=== PATIENT | female | born 1960 | race Caucasian/White ===

== ENCOUNTER 2017-03-22 05:29 | Observation (INO) | payer MEDICARE ==
[~2017-03-22 05:29] MED LIST: CEFAZOLIN SODIUM 2 GM in DEXTROSE 5%-WATER 100 ML IV PRN; LACTATED RINGERS 1000 ML IV PRN; LIDOCAINE 0.5% INJ-PF (5 MG/ML) 50 ML SDV SUBCUT PRN
[2017-03-22] MEDS ORDERED: ALBUTEROL SULFATE 0.083% NEB 2.5 MG/3 ML AMPUL NEB ONE (06:25)
[2017-03-22] MEDS ORDERED: THROMBIN (BOVINE) 5000 UNIT EPITAXIS KIT ONE (06:49)
[2017-03-22] MEDS ORDERED: BACITRACIN INJ 50,000 UNIT VIAL ONE (06:49)
[2017-03-22] MEDS ORDERED: FENTANYL CITRATE INJ/PF 250 MCG/5 ML AMPULE ONE (06:52)
[2017-03-22] MEDS ORDERED: PROPOFOL INJ 200 MG/20 ML VIAL IV ONE ×2 (06:53→07:09)
[2017-03-22] MEDS ORDERED: MIDAZOLAM 2 MG/2 ML INJ ONE (06:53)
[2017-03-22] MEDS ORDERED: ACETAMINOPHEN 100 ML IV ONE (06:53)
[2017-03-22] MEDS ORDERED: HYDROMORPHONE HCL INJ/PF 2 MG/ML AMPULE ONE (06:53)
[2017-03-22 07:38] LABS: HEMATOCRIT 39.1 % (36.0-47.0); HEMOGLOBIN 13.3 g/dL (12.0-15.5); HGB HCT DIFFERENCE 0.8; MEAN CORPUSCULAR HEMOGLOBIN 32.2 pg (27.0-33.4); MEAN CORPUSCULAR HGB CONC 34.1 g/dL (32.0-36.0); MEAN CORPUSCULAR VOLUME 94 fl (80-97); RED BLOOD COUNT 4.14 10^6/uL (3.72-5.28); RED CELL DISTRIBUTION WIDTH 12.8 % (11.5-14.0); WHITE BLOOD COUNT 7.7 10^3/uL (4.0-10.5)
[2017-03-22 07:49] LABS: ALANINE AMINOTRANSFERASE 25 U/L (9-52); ALBUMIN 3.8 g/dL (3.5-5.0); ALKALINE PHOSPHATASE 64 U/L (38-126); ANION GAP 8 (5-19); ASPARTATE AMINO TRANSFERASE 15 U/L (14-36); BILIRUBIN,DIRECT 0.3 mg/dL (0.0-0.4); BILIRUBIN,TOTAL 0.4 mg/dL (0.2-1.3); BLOOD UREA NITROGEN 8 mg/dL (7-20); CALCIUM 9.6 mg/dL (8.4-10.2); CARBON DIOXIDE 22 mmol/L (22-30); CHLORIDE 111 mmol/L (98-107); GLUCOSE 108 mg/dL (75-110); POTASSIUM 4.5 mmol/L (3.6-5.0); SODIUM 140.6 mmol/L (137-145); TOTAL PROTEIN 6.3 g/dL (6.3-8.2)
[2017-03-22] MEDS ORDERED: EPHEDRINE SULFATE INJ 50 MG/1 ML AMPULE ONE (08:25)
[2017-03-22] MEDS ORDERED: FENTANYL CITRATE INJ/PF 100 MCG/2 ML AMPUL IV PRN ×3 (08:55)
[2017-03-22] MEDS ORDERED: DIPHENHYDRAMINE HCL 50 MG/ML VIAL IV PRN (08:55)
[2017-03-22] MEDS ORDERED: PROMETHAZINE HCL INJ 25 MG/1 ML VIAL IV PRN (08:55)
[2017-03-22] MEDS ORDERED: MORPHINE SULFATE 10 MG/ML INJ IV PRN (08:55)
[2017-03-22] MEDS ORDERED: MEPERIDINE HCL/PF INJ 25 MG/1 ML DISP.SYRIN IV PRN (08:55)
[2017-03-22] MEDS ORDERED: METHOCARBAMOL INJ/PF 1000 MG/10 ML SDV IV PRN (10:24)
[2017-03-22] MEDS ORDERED: HYDROCOD/ACETAMIN 7.5-325 MG/15 ML ORAL SOLN UDCUP PO PRN (10:25)
[2017-03-22] MEDS ORDERED: ACETAMINOPHEN SOLN 325 MG/10.15 ML UDCUP PO PRN (10:27)
--- NOTE | 2017-03-22 10:42 | RADIOLOGY REPORT (SQ) ---
EXAM DESCRIPTION: NO CHG FLUORO; CERV SP 3 VIEW OR LESS COMPLETED DATE/TIME: 03/22/2017 10:10 am REASON FOR STUDY: CERVICAL FUSION C5-C6 ASSISTED WITH FLUORO IN OR COMPARISON: None. FLUOROSCOPY TIME: 0.1 minutes 4 Images saved to PACS RADIATION DOSE: 0.95 mGy LIMITATIONS: None. PROCEDURE: Intraoperative images. FINDINGS: Intraoperative images obtained with the C-arm show a needle directed at the interspace bet ween C5 and C6. The final images show a small anterior device that is secured by a single screw into the C5 vertebra and one into the C6 vertebra. IMPRESSION: Intraoperative images as described. COMMENT: PQRS 6045F: Fluoroscopy time of the procedure is documented in the report. TECHNICAL DOCUMENTATION: JOB ID: [id number] [employer]- All Rights Reserved
--- NOTE | 2017-03-22 10:42 | RADIOLOGY REPORT (SQ) ---
EXAM DESCRIPTION: NO CHG FLUORO; CERV SP 3 VIEW OR LESS COMPLETED DATE/TIME: 03/22/2017 10:10 am REASON FOR STUDY: CERVICAL FUSION C5-C6 ASSISTED WITH FLUORO IN OR COMPARISON: None. FLUOROSCOPY TIME: 0.1 minutes 4 Images saved to PACS RADIATION DOSE: 0.95 mGy LIMITATIONS: None. PROCEDURE: Intraoperative images. FINDINGS: Intraoperative images obtained with the C-arm show a needle directed at the interspace bet ween C5 and C6. The final images show a small anterior device that is secured by a single screw into the C5 vertebra and one into the C6 vertebra. IMPRESSION: Intraoperative images as described. COMMENT: PQRS 6045F: Fluoroscopy time of the procedure is documented in the report. TECHNICAL DOCUMENTATION: JOB ID: [id number] [employer]- All Rights Reserved
--- NOTE | 2017-03-22 10:50 | EKG REPORT ---
SEVERITY:- ABNORMAL ECG - SINUS RHYTHM FIRST DEGREE AV BLOCK BORDERLINE LEFT AXIS DEVIATION : Confirmed by: Elsa Cruz 22-Mar-2017 10:50:00
[2017-03-22] MEDS ORDERED: VECURONIUM BROMIDE INJ 10 MG VIAL IV ONE (12:06)
[2017-03-22] MEDS ORDERED: PHENYLEPHRINE HCL INJ/PF 10 MG/1 ML SDV ONE (12:06)
[2017-03-22] MEDS ORDERED: SUCCINYLCHOLINE CHLORIDE INJ 200 MG/10 ML VIAL ONE (12:06)
[2017-03-22] MEDS ORDERED: DEXAMETHASONE SOD PHOSPHATE INJ 4 MG/1 ML VIAL ONE (12:06)
[2017-03-22] MEDS ORDERED: LIDOCAINE 2% INJ-PF (20 MG/ML) 10 ML AMPUL ONE (12:06)
[2017-03-22] MEDS ORDERED: GLYCOPYRROLATE INJ 0.4 MG/2 ML VIAL ONE (12:06)
[2017-03-22] MEDS ORDERED: ONDANSETRON HCL INJ/PF 4 MG/2 ML SDV ONE (12:06)
--- NOTE | 2017-03-22 12:47 | RADIOLOGY REPORT (SQ) ---
EXAM DESCRIPTION: CT HEAD WITHOUT COMPLETED DATE/TIME: 03/22/2017 12:27 pm REASON FOR STUDY: EXPRESSIVE APHASIA, AMS M54.2 CERVICALGIA M50.10 CERVICAL DISC DISORDER W RADICU LOPATHY, UNSP CERVICAL M50.30 OTHER CERVICAL DISC DEGENERATION, UNSP CERVICAL REGIO COMPARISON: 05/08/2011 TECHNIQUE: Axial images acquired through the brain without intravenous contrast. Images reviewed wi th bone, brain and subdural windows. Images stored on PACS. All CT scanners at this facility use dose modulation, iterative reconstruction, and/or weight based d osing when appropriate to reduce radiation dose to as low as reasonably achievable (ALARA). [facility]: Dose Right [facility]: CareDose [facility]: Dose Right [facility]: Teradose 4D [facility]: Smart [employer] RADIATION DOSE: Up-to-date CT equipment and radiation dose reduction techniques were employed. CTDIv ol: 64.6 mGy. DLP: 1163 mGy-cm. mGy. LIMITATIONS: None. FINDINGS: VENTRICLES: Normal size and contour. CEREBRUM: No masses. No hemorrhage. No midline shift. Normal welch/white matter differentiation. N o evidence for acute infarction. CEREBELLUM: No masses. No hemorrhage. No alteration of density. No evidence for acute infarction. EXTRAAXIAL SPACES: No fluid collections. No masses. ORBITS AND GLOBE: No intra- or extraconal masses. Normal contour of globe without masses. CALVARIUM: No fracture. PARANASAL SINUSES: No fluid or mucosal thickening. SOFT TISSUES: No mass or hematoma. OTHER: No other significant finding. IMPRESSION: NORMAL BRAIN CT WITHOUT CONTRAST. COMMENT: Findings were discussed with [facility] in ambulatory surgery at 1241 hours on this date. TECHNICAL DOCUMENTATION: JOB ID: [id number] Quality ID # [id number]: Final reports with documentation of one or more dose reduction techniques (e.g., Au tomated exposure control, adjustment of the mA and/or kV according to patient size, use of iterative reconstruction technique) 2010 [employer]- All Rights Reserved
[2017-03-22] MEDS ORDERED: ONDANSETRON HCL INJ/PF 4 MG/2 ML SDV IV PRN (13:15)
[2017-03-22] MEDS ORDERED: HYDROCODONE/ACETAMINOPHEN 5-325 MG TABLET PO PRN (13:15)
[2017-03-22] MEDS ORDERED: LABETALOL HCL INJ 20 MG/4 ML DISP.SYRIN IV PRN (13:15)
[2017-03-22] MEDS ORDERED: ACETAMINOPHEN 325 MG TABLET PO PRN (13:15)
--- NOTE | 2017-03-22 13:17 | OPERATIVE REPORT E ---
Operative Report NAME: LM COOLEY : 1960 AGE: 56Y DATE OF SURGERY: 03/22/2017 ROOM: SURGEON: RONALDO RAMOS M.D. ANESTHESIA: HUMBERTO GREENFIELD, PHYSICIAN SERVICE TESTER PREOPERATIVE DIAGNOSES: 1. C5-6 herniated nucleus pulposus. 2. Degenerative disk disease. 3. Neck pain. 4. Radiculitis. POSTOPERATIVE DIAGNOSES: 1. C5-6 herniated nucleus pulposus. 2. Degenerative disk disease. 3. Neck pain. 4. Radiculitis. PROCEDURE: C5-6 anterior cervical diskectomy and fusion with instrumentation interbody spacer, allograft, iliac crest aspiration. Right iliac crest for bone marrow aspirate to be used with the allograft and segmental instrumentation. INDICATIONS FOR SURGERY: Patient is a 56-year-old female with numbness and weakness in the right upper extremity. After discussion with the patient of the risks, indications, and alternatives, including the risk of infection and bleeding, damage to nerves or blood vessels, the risk of dural tear and spinal headache, the risk of nonunion, malunion, the risk of continued neck pain, the risk of adjacent level arthritis, and dysphagia and dysphonia. 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 I discussed with her the significant risk of dysphonia afterwards. She understood the risks and she wished to proceed with surgical intervention. OPERATIVE TECHNIQUE: The patient was brought into the room and placed under anesthesia where she received 2 g of Ancef within an hour of cut time, had SCDs and warm blanket placed on her. Patient was placed on the flatbed OSI table with a bolster between the shoulder blades, next placed in neutral position. Had SCDs and warm blanket placed on her, plus monitoring leads, baseline SSCP and cranial motor testing was obtained. After that, the right iliac crest is prepped and draped and a Jamshidi needle was induced into the iliac crest, and aspiration was carried out 8 cm posterior to the anterior/superior iliac spine. A total of 3 mL of bone marrow aspirate obtained. Site was cleansed and dressed with a band aid. Attention was then paid to the cervical spine. Lateral C-arm fluoroscopy was obtained to verify the level at T5-6 and the skin was marked appropriately. After marking the skin, a transverse incision was marked and the midline was marked as well. After completion of prepping and draping, the sharp dissection was carried down through the skin, the platysma incised and dissected out, and dissection was carried out through the pretracheal fascia downward through the prevertebral fascia. Redfield retractors and Trimline retractors were utilized to retract mediolaterally to expose the prevertebral fascia and the longus colli muscles identified. The Kittners are used to dissect off the prevertebral fascia and that needle was placed into the disk space at C5-6 to cleo the appropriate level upon marking that level, using lateral C-arm fluoroscopy to verify that level. After that, attention was then paid to placement of castoff pins in C5 and C6 vertebral bodies using those to retract cephalad to caudad using the CASPAR pin and retractor. After that, the microscope was brought in under the microscope, and through the assistance of Humberto Greenfield, physician cashier assistant, the longus colli muscles were elevated off the vertebral bodies on the right and left side and the Trimline retractors were used to be positioned under the longus colli muscles. After that the annulotomy was performed. A complete diskectomy was performed using Kerrison curettes and Kerrison rongeurs, and the endplate secured at the good bleeding bone. The posterior longitudinal ligament was then resected. There was noted to be a rent in the posterior longitudinal ligament on the right side, and many small and larger pieces of disk had herniated through it. After resection of the posterior longitudinal ligament, there was also noted to be a piece of herniated disk under that in and towards the foramen. Those were fished out using pituitaries and the Micro Nerve Hook and then the foramen was found to be patent. Foraminotomies were performed bilaterally. Posterior lower extremity was resected all the way across and bipolar electrocautery was used to coagulate small little bleeders. After that, the appropriate sized coalition spacer from [employer] being 12 x 14 x 6 mm 7-degree lordotic spacer filled by calcium triphosphate and bone marrow aspirate is placed in interbody spacer, which is positioned, and then the Franconia pins are removed after collapsing the vertebral bodies on each other and the screws are drilled to 12 mm depth, and then 14 mm variable angle screws are placed, found to have good purchase, good position, and then the final locking mechanism is locked. Cranial motor testing is obtained, felt to be stable, and no free activity of EMGs is noted. After that, the wound is irrigated with a liter of bacitracin irrigation. Then, an incision was made inferolateral to the incision and a 7.5-Vietnamese drain is brought in through that area. There is negative ALVINA pressure. The platysma is reapproximated with 0 Vicryl, subcu with 2-0 Vicryl, and the skin with subcuticular Monocryl closure. The drain is affixed with a drain stitch and the drain will be kept in and removed later. Patient's total blood loss was 15 mL. Please note, the patient tolerated the procedure well. She is stable, discharged to recovery room. DICTATING PHYSICIAN: RONALDO RAMOS M.D. [id number] PHY#: [id number] ID: [id number] JOB#: [id number] ACCT: [id number] cc:RONALDO RAMOS M.D. >
--- NOTE | 2017-03-22 14:27 | RADIOLOGY REPORT (SQ) ---
EXAM DESCRIPTION: MRI HEAD WITHOUT COMPLETED DATE/TIME: 03/22/2017 2:09 pm REASON FOR STUDY: EXPRESSIVE APHASIA M54.2 CERVICALGIA M50.10 CERVICAL DISC DISORDER W RADICULOPAT HY, UNSP CERVICAL M50.30 OTHER CERVICAL DISC DEGENERATION, UNSP CERVICAL REGIO COMPARISON: None. TECHNIQUE: Multiplanar imaging includes non-contrasted T1, T2, FLAIR, and diffusion with ADC map seq uences. Images stored on PACS. LIMITATIONS: None. FINDINGS: ANATOMY: No developmental anomalies. Normal vascular flow voids. Pituitary fossa normal. CSF SPACES: Normal in size and contour. No hemorrhage. CEREBRUM: Diffusion-weighted images are positive for a small acute nonhemorrhagic cortical infarct in the left posterior temporal lobe, best shown on series 4 images 16 and 17. This report was called t o the patient's nurse in PACU, Lela Carrizales RN, 1410 hours 03/22/2017. Remainder of the brain parenchyma demonstrates spotty FLAIR/increased T2 signal in the deep periventr icular white matter bifrontal biparietal, and bitemporal regions, raising a question of old demyelina ting disease versus small vessel ischemic change. POSTERIOR FOSSA: No signal alteration. No hemorrhage. No edema, masses or mass effect. Internal suleman tory canals, cerebello-pontine angles, mastoids normal. DIFFUSION IMAGING: Positive for a small acute nonhemorrhagic cortical infarct left posterior temporal lobe, best shown on diffusion images 16 and 17. ORBITS: No masses. Globes normal. PARANASAL SINUSES: No fluid levels. Mucosa normal. OTHER: Flat throughout the right middle ear cavity and mastoid air cells. IMPRESSION: Acute small nonhemorrhagic cortical infarct in the posterior left temporal lobe. Report called to the patient's nurse in the PACU as above. EVIDENCE OF ACUTE STROKE: NO. TECHNICAL DOCUMENTATION: JOB ID: [id number] [employer]- All Rights Reserved
[2017-03-22 14:56] LABS: PARTIAL THROMBOPLASTIN TIME 25.2 SEC (23.5-35.8); PROTHROMBIN TIME 13.3 SEC (11.4-15.4)
--- NOTE | 2017-03-22 16:06 | PDOC H&P ---
History of Present Illness Admission Date/PCP: 03/22/17 13:15 FADI ESCOBAR PA-C Patient complains of: Difficulty speaking History of Present Illness: LM COOLEY is a 56 year old female with past medical history of hypothyroidism and bipolar disorder is noted in PACU to have difficulty speaking. Patient reported that she was not thinking clearly this morning when she woke prior to coming to the hospital for surgery. This morning she had C5- C6 anterior cervical fusion performed by Dr. Solomon. Shortly after awakening in PACU she was noted to have difficulty speaking. Anesthesiologist ordered head CT had no acute findings. Past Medical History Cardiac Medical History: Reports: Hyperlipidema Denies: Myocardial Infarction, Hypertension Pulmonary Medical History: Denies: Asthma, Bronchitis, Chronic Obstructive Pulmonary Disease (COPD), Pneumonia Neurological Medical History: Reports: Seizures - ALCOHOL RELATED SOBER 20+ YEARS GI Medical History: Reports: Gastroesophageal Reflux Disease Musculoskeltal Medical History: Denies: Arthritis Psychiatric Medical History: Reports: Bipolar Disorder, Depression - anxiety Hematology: Denies: Anemia Past Surgical History Past Surgical History: Reports: Orthopedic Surgery - discectomy 1998, Tubal Ligation Denies: Hysterectomy Social History Information Source: Patient Smoking Status: Current Some Day Smoker Frequency of Alcohol Use: None - Advance Directive Resuscitation Status: Full Code Family History Family History: denies: CVA Parental Family History Reviewed: Yes Children Family History Reviewed: Yes Sibling(s) Family History Reviewed.: Yes Medication/Allergy Home Medications: Omeprazole 40 mg PO DAILY 07/06/15 Acyclovir [Acyclovir 400 mg Tablet] 400 mg PO BID 03/06/17 Levothyroxine Sodium [Synthroid 0.05 mg Tablet] 0.05 mg PO DAILY 03/06/17 [place]ound Carbonate 300 mg PO BID 03/06/17 Simvastatin 20 mg PO DAILY 03/06/17 Trazodone HCl 100 mg PO DAILY 03/06/17 Venlafaxine HCl [Effexor 75 mg Tablet] 75 mg PO DAILY 03/06/17 Zolpidem Tartrate [Ambien] 10 mg PO QHS 03/06/17 Allergies/Adverse Reactions: No Known Drug Allergies Allergy (Severe, Verified 03/06/17 10:27) Review of Systems Constitutional: ABSENT: chills, fever(s), headache(s), weight gain, weight loss Eyes: ABSENT: visual disturbances Ears: ABSENT: hearing changes Cardiovascular: ABSENT: chest pain, dyspnea on exertion, edema, orthropnea, palpitations Respiratory: ABSENT: cough, hemoptysis Gastrointestinal: ABSENT: abdominal pain, constipation, diarrhea, hematemesis, hematochezia, nausea, vomiting Genitourinary: ABSENT: dysuria, hematuria Musculoskeletal: ABSENT: joint swelling Integumentary: ABSENT: rash, wounds Neurological: PRESENT: abnormal speech. ABSENT: abnormal gait, confusion, dizziness, focal weakness, syncope Psychiatric: ABSENT: anxiety, depression, homidical ideation, suicidal ideation Endocrine: ABSENT: cold intolerance, heat intolerance, polydipsia, polyuria Hematologic/Lymphatic: ABSENT: easy bleeding, easy bruising Physical Exam Vital Signs: Temp Pulse Resp BP Pulse Ox 97.5 F 63 14 147/79 H 96 03/22/17 09:45 03/22/17 11:15 03/22/17 11:15 03/22/17 11:15 03/22/17 11:15 Intake & Output 03/21/17 03/22/17 03/23/17 06:59 06:59 06:59 Intake Total 0 2900 Output Total 735 Balance 0 2165 Weight 65.77 kg PHYSICAL EXAM: GENERAL: Appears well, no acute distress HEENT: Normocephalic, no scleral icterus, conjunctiva clear, EOEM intact, PERRLA , moist mucous membranes NECK: trachea midline, no thyromegally RESPIRATORY: Clear to auscultation, no wheezes/rhonchi CARDIAC: Regular rate and rhythm, no murmur/mehreen/rub ABDOMEN: Soft, no distension, no tenderness, no guarding, normal bowel sounds, negative Banks sign RECTAL: deferred : deferred EXTREMITIES: No edema, cyanosis, clubbing MUSCULOSKELETAL: No joint swelling or deformity VASCULAR: normal peripheral pulses NEUROLOGIC: Alert, oriented to person/place/time, expressive aphasia, cranial nerves grossly intact, 5/5 strength in all extremities, tactile sensation intact in all extremities SKIN: Dressing/drain to anterior neck PSYCHIATRIC: Normal mood, normal affect Results Laboratory Results: 03/22/17 07:20 03/22/17 07:20 03/22/17 03/22/17 07:20 07:20 WBC 7.7 RBC 4.14 Hgb 13.3 Hct 39.1 MCV 94 MCH 32.2 MCHC 34.1 RDW 12.8 Plt Count 229 Sodium 140.6 Potassium 4.5 Chloride 111 H Carbon Dioxide 22 Anion Gap 8 BUN 8 Creatinine 0.60 Est GFR ( Amer) > 60 Est GFR (Non-Af Amer) > 60 Glucose 108 Calcium 9.6 Total Bilirubin 0.4 AST 15 ALT 25 Alkaline Phosphatase 64 Total Protein 6.3 Albumin 3.8 03/22/17 14:36 [place]ound 1.1 Impressions: Cervical Spine X-Ray 03/22/17 00:00 IMPRESSION: Intraoperative images as described. Fluoroscopy 03/22/17 00:00 IMPRESSION: Intraoperative images as described. Head CT 03/22/17 00:00 IMPRESSION: NORMAL BRAIN CT WITHOUT CONTRAST. Head MRI 03/22/17 00:00 IMPRESSION: Acute small nonhemorrhagic cortical infarct in the posterior left temporal lobe. Report called to the patient's nurse in the PACU as above. EVIDENCE OF ACUTE STROKE: NO. Assessment & Plan - Diagnosis (1) Acute ischemic stroke Is this a current diagnosis for this admission?: YesPlan: I have discussed the case with Dr. Solomon surgery and he states that given the fact the patient is immediately postoperative cervical spine fusion she cannot have any type of blood thinner to include aspirin, Plavix, Aggrenox, heparin products. I will start patient on Lipitor 40 mg daily. Check carotid Dopplers. Check echocardiogram. Order speech therapy, physical therapy, occupational therapy. Avoid antiplatelet therapy secondary to spinal surgery. Avoid pharmacologic DVT prophylaxis secondary to spine surgery. (2) Status post cervical spinal fusion Is this a current diagnosis for this admission?: YesPlan: Case discussed with Dr. Solomon of spine surgery. Patient will need to follow- up with surgery as an outpatient. For now she is to have limited range of motion of cervical spine. (3) Expressive aphasia Is this a current diagnosis for this admission?: Yes (4) Hypothyroid Is this a current diagnosis for this admission?: YesPlan: Synthroid. Check TSH. (5) Bipolar disorder Is this a current diagnosis for this admission?: YesPlan: Continue home medications. - Time Time Spent: Greater than 70 Minutes Anticipated discharge: Home Within: within 48 hours
--- NOTE | 2017-03-22 16:54 | RADIOLOGY REPORT (SQ) ---
EXAM DESCRIPTION: CAROTID DOPPLER COMPLETED DATE/TIME: 03/22/2017 4:15 pm REASON FOR STUDY: acute neurologic syndrome M54.2 CERVICALGIA M50.10 CERVICAL DISC DISORDER W RADI CULOPATHY, UNSP CERVICAL M50.30 OTHER CERVICAL DISC DEGENERATION, UNSP CERVICAL REGIO COMPARISON: CT brain 03/22/2017 MRI brain 03/22/2017 TECHNIQUE: Grayscale ultrasound, Doppler velocity and spectra, and color Doppler images acquired of the extra-cranial carotid and vertebral arteries. Images stored on PACS. LIMITATIONS: Limited visualization of the left common carotid artery due to bandages FINDINGS: RIGHT CAROTID CCA Velocities: Within normal limits. ICA Velocities Peak systolic 0.57 m/s. End diastolic 0.17 m/s. Proximal ICA/CCA peak systolic ratio 1.8. Spectra normal. No significant plaque. LEFT CAROTID CCA Velocities: Markedly elevated velocities in the left common carotid artery proximally, 2.4 m/sec systolic and 1.9 m/sec diastolic. This area was difficult to visualize due to bandages from recent s urgery. Proximal left common carotid artery stenosis off the aorta may be present, consider CT angio neck to include this area for followup. ICA Velocities Peak systolic 0.58 m/s. End diastolic 0.19 m/s. Proximal ICA/CCA peak systolic ratio 0.5. Spectra normal. No significant plaque. VERTEBRAL ARTERIES: Antegrade flow. Normal waveforms. SUBCLAVIAN ARTERIES: Not evaluated. OTHER: No other significant finding. IMPRESSION: No flow significant stenosis of the right or left carotid bifurcation. There are abnormal elevated systolic and diastolic velocities in the proximal left common carotid art jeanie, with turbulent flow. Patient may have a proximal left common carotid artery stenosis. Consider CT angio neck for followup. This result was discussed with Dr. Gipson. COMMENT: Quality ID #[id number]: Velocity criteria are extrapolated from the diameter data as defined by t he Society of Radiologists in Ultrasound Consensus Conference. Radiology 2003: 229; 340-346. TECHNICAL DOCUMENTATION: JOB ID: [id number] [employer]- All Rights Reserved
[2017-03-22] MEDS ORDERED: (PENDING PHARMACY ID) (Lithium Carbonate [Lithium Carbonate] 300 MG) PO SCH (18:00)
[2017-03-22] MEDS ORDERED: OXYCODONE HCL IR 5 MG TABLET PO PRN (18:19)
[2017-03-22] MEDS: LITHIUM CARBONATE 300 MG CAPSULE PO SCH (18:39)
--- NOTE | 2017-03-22 18:47 | TRANSFER SUMMARY E ---
Transfer Summary NAME: LM COOLEY : 1960 AGE: 56Y ADMITTED: 03/22/2017 TRANSFERRED: 03/22/2017 BRIEF HISTORY AND COURSE OF HOSPITAL STAY: Patient is a 56-year-old female who was admitted, underwent C5-6 anterior cervical discectomy and fusion. Did well postoperatively, and then she started to develop aphasia and dysarthria. After discussion with the recovery room nurse, decision was made to proceed with consulting the hospitalist team, obtaining a CT scan and an MRI, and she was noted to have a stroke in the temporal lobe. Decision was made to keep her and admit her to the hospitalists, and so we will be transferring her service over to the hospitalist team to Dr. Gipson. PAST MEDICAL HISTORY: Please refer to patient's chart, includin. Bipolar disorder. 2. Degenerative disc disease. 3. Neck pain. 4. Radiculitis. Postsurgery, she reported significant relief of her arm symptoms. She had some neck pain. Incision and dressing is intact. I came back at 4:00 today to remove the drain and change the dressing and it looked very good, and she is doing better. She is starting to be able to talk a little bit more, but she still has evidence of the stroke. PLAN: Plan is for her to at least be kept by the hospitalists and monitored. At this point, we will step back out of the picture, but if there is any need for anything else, the things that I discussed with the hospitalists specifically is that we cannot anticoagulate her for at least 2 more weeks and anti-inflammatories and steroids are contraindicated to a fusion. I discussed that with the patient as well. We will have to see how she progresses and we will proceed with that plan. Condition is overall stable, although monitoring is important, considering the fact that she is noted to have an ischemic stroke. Please refer to the patient's chart for medications. DICTATING PHYSICIAN: RONALDO RAMOS M.D. [id number] PHY#: [id number] ID: [id number] JOB#: [id number] ACCT: [id number] cc:RONALDO RAMOS M.D. >
[2017-03-22] MEDS: CEFAZOLIN 2 GM/D5W RTU 2 GM/50 ML RTUPB IV SCH (19:36)
--- NOTE | 2017-03-22 20:56 | RADIOLOGY REPORT (SQ) ---
EXAM DESCRIPTION: CTA NECK COMPLETED DATE/TIME: 03/22/2017 8:38 pm REASON FOR STUDY: acute CVA M54.2 CERVICALGIA M50.10 CERVICAL DISC DISORDER W RADICULOPATHY, UNSP CERVICAL M50.30 OTHER CERVICAL DISC DEGENERATION, UNSP CERVICAL REGIO COMPARISON: None. TECHNIQUE: Axial dynamic scanning technique with dynamic contrast enhancement through the extra-cracker and cookie machine operator nial carotid and vertebral arteries. Multiplanar reconstruction. 3-D MIPS and Volume-rendered imag es acquired at the workstation and saved to PACS. Images are reviewed in soft tissue, bone, lung w indows. All CT scanners at this facility use dose modulation, iterative reconstruction, and/or weight based d osing when appropriate to reduce radiation dose to as low as reasonably achievable (ALARA). [facility]: Dose Right [facility]: CareDose [facility]: Dose Right [facility]: Teradose 4D [facility]: [employer] CONTRAST TYPE AND DOSE: contrast/concentration: Isovue 370.00 mg/ml; Total Contrast Delivered: 70.0 ml; Total Saline Delivered: 75.0 ml RENAL FUNCTION: BUN 8, creatinine 0.60 LIMITATIONS: None. FINDINGS: AORTIC ARCH: Normal three-vessel origin. Bilateral subclavian arteries are patent. No d issection. RIGHT CAROTIDS: Patent common, internal and external carotid arteries. There is soft plaque in the d istal left common carotid artery just proximal to its bifurcation. RIGHT VERTEBRAL: Patent. No dissection. LEFT CAROTIDS: Patent common, internal and external carotid arteries without suggestion of significan t stenosis or irregular plaque. No dissection. LEFT VERTEBRAL: Patent. No dissection. OTHER: There is a large amount of subcutaneous emphysema in the left aspect the neck extending in to the perivascular space. Etiology of this is uncertain. OTHER: 3-D reconstructions confirm findings. IMPRESSION: 1. Subcutaneous air along the neurovascular bundle and in the subcutaneous tissues of t he neck. Etiology of this is uncertain. Clinical correlation is needed. 2. Soft plaque is present in the distal left common carotid artery proximal to the bifurcation. COMMENT: Quality ID #[id number]: Measurements of distal internal carotid diameter were used as the denomina tor for stenosis measurement. TECHNICAL DOCUMENTATION: JOB ID: [id number] Quality ID # [id number]: Final reports with documentation of one or more dose reduction techniques (e.g., Au tomated exposure control, adjustment of the mA and/or kV according to patient size, use of iterative reconstruction technique) 2010 [employer]- All Rights Reserved
[2017-03-22] MEDS: ACETAMINOPHEN 325 MG TABLET PO SCH (21:41)
[2017-03-22] MEDS ORDERED: ATORVASTATIN CALCIUM 40 MG TABLET PO SCH (22:00)
[2017-03-23] MEDS: CEFAZOLIN 2 GM/D5W RTU 2 GM/50 ML RTUPB IV SCH (03:37)
[2017-03-23] MEDS: ACETAMINOPHEN 325 MG TABLET PO SCH ×2 (05:51→13:16)
[2017-03-23] MEDS: LITHIUM CARBONATE 300 MG CAPSULE PO SCH (05:52)
[2017-03-23 06:08] LABS: ABSOLUTE LYMPHOCYTES (AUTO) 2.4 10^3/uL (0.5-4.7); ABSOLUTE MONOCYTES (AUTO) 1.2 10^3/uL (0.1-1.4); ABSOLUTE NEUT (AUTO) 11.5 10^3/uL (1.7-8.2); BASOPHILS % (AUTO) 0.2 % (0-2); EOSINOPHILS % (AUTO) 0.1 % (0-6); HEMATOCRIT 38.5 % (36.0-47.0); HGB HCT DIFFERENCE 0.5; LYMPHOCYTES % (AUTO) 15.9 % (13-45); MEAN CORPUSCULAR HEMOGLOBIN 31.8 pg (27.0-33.4); MEAN CORPUSCULAR HGB CONC 33.8 g/dL (32.0-36.0); MEAN CORPUSCULAR VOLUME 94 fl (80-97); MONOCYTES % (AUTO) 7.9 % (3-13); RED BLOOD COUNT 4.09 10^6/uL (3.72-5.28); RED CELL DISTRIBUTION WIDTH 12.8 % (11.5-14.0); SEGMENTED NEUTROPHILS % (AUTO) 75.9 % (42-78); WHITE BLOOD COUNT 15.1 10^3/uL (4.0-10.5)
[2017-03-23 06:21] LABS: ALANINE AMINOTRANSFERASE 20 U/L (9-52); ALBUMIN 3.9 g/dL (3.5-5.0); ALKALINE PHOSPHATASE 62 U/L (38-126); ANION GAP 12 (5-19); ASPARTATE AMINO TRANSFERASE 21 U/L (14-36); BILIRUBIN,DIRECT 0.3 mg/dL (0.0-0.4); BILIRUBIN,TOTAL 0.6 mg/dL (0.2-1.3); BLOOD UREA NITROGEN 8 mg/dL (7-20); CALCIUM 9.9 mg/dL (8.4-10.2); CARBON DIOXIDE 23 mmol/L (22-30); CHLORIDE 107 mmol/L (98-107); CHOLESTEROL 172.73 mg/dL (0-200); Direct HDL 62 mg/dL (>40); GLUCOSE 110 mg/dL (75-110); POTASSIUM 3.9 mmol/L (3.6-5.0); SODIUM 142.3 mmol/L (137-145); TOTAL PROTEIN 6.5 g/dL (6.3-8.2); TRIGLYCERIDES 173 mg/dL (<150)
[2017-03-23 06:32] LABS: DIRECT LDL 79 mg/dL (<100)
[2017-03-23 06:34] LABS: VLDL CHOLESTEROL 34.6 mg/dL (10-31)
[2017-03-23] MEDS ORDERED: VENLAFAXINE HCL 75 MG TABLET PO SCH (10:00)
[2017-03-23] MEDS ORDERED: TRAZODONE HCL 50 MG TABLET PO SCH (10:00)
[2017-03-23] MEDS ORDERED: LANSOPRAZOLE 30 MG TAB.RAP.DR PO SCH (10:00)
[2017-03-23] MEDS ORDERED: LEVOTHYROXINE SODIUM 0.05 MG TABLET PO SCH (10:00)
[2017-03-23] MEDS ORDERED: HYDROCODONE/ACETAMINOPHEN 7.5-325 MG TABLET PO PRN (11:09)
[2017-03-23] MEDS ORDERED: ASPIRIN 81 MG TABLET, ENT COATED PO SCH (11:10)
--- NOTE | 2017-03-23 11:18 | PDOC DISCHARGE SUMMARY ---
General - Admit/Disc Date/PCP Admission Date/Primary Care Provider: 03/22/17 13:15 FADI ESCOBAR PA-C Discharge Date: 03/23/17 - Discharge Diagnosis (1) Acute ischemic stroke Is this a current diagnosis for this admission?: Yes (2) Status post cervical spinal fusion Is this a current diagnosis for this admission?: Yes (3) Expressive aphasia Is this a current diagnosis for this admission?: Yes (4) Hypothyroid Is this a current diagnosis for this admission?: Yes (5) Bipolar disorder Is this a current diagnosis for this admission?: Yes - Additional Information Resuscitation Status: Full Code Discharge Diet: Cardiac Discharge Activity: No Lifting Over 10 Pounds, No Lifting/Push/Pulling, Slowly Increase Activity, Other - limit range of motion of C-spine Home Medications: Omeprazole 40 mg PO DAILY 07/06/15 Acyclovir [Acyclovir 400 mg Tablet] 400 mg PO BID 03/06/17 Levothyroxine Sodium [Synthroid 0.05 mg Tablet] 0.05 mg PO DAILY 03/06/17 [place] Carbonate 300 mg PO BID 03/06/17 Simvastatin 20 mg PO DAILY 03/06/17 Trazodone HCl 100 mg PO DAILY 03/06/17 Venlafaxine HCl [Effexor 75 mg Tablet] 75 mg PO DAILY 03/06/17 Zolpidem Tartrate [Ambien] 10 mg PO QHS 03/06/17 Acetaminophen [Tylenol 325 mg Tablet] 650 mg PO Q4HP PRN tablet 03/23/17 Aspirin [Adult Low Dose Aspirin EC] 81 mg PO DAILY #30 tablet. 03/23/17 Hydrocodone/Acetaminophen [[place] 5-325 mg Tablet] 1 tab PO Q4HP PRN #20 tablet 03/23/17 History of Present Illness Patient complains of: Speech difficulty History of Present Illness: LM COOLEY is a 56 year old female with past medical history of hypothyroidism and bipolar disorder is noted in PACU to have difficulty speaking. Patient reported that she was not thinking clearly this morning when she woke prior to coming to the hospital for surgery. This morning she had C5- C6 anterior cervical fusion performed by Dr. Solomon. Shortly after awakening in PACU she was noted to have difficulty speaking. Anesthesiologist ordered head CT had no acute findings. Hospital Course Hospital Course: Patient was noted in PACU to have speech difficulty status post anterior cervical C5-C6 fusion. Head CT showed no acute findings. MRI of the brain showed small acute ischemic stroke in the left temporal region. Carotid Dopplers showed increased velocity in left internal carotid but no plaque or stenosis. CTA of the neck showed soft plaque in the distal left internal carotid artery around the bifurcation, but no stenosis. Per recommendation of surgery patient was not initially started on antiplatelet or on pharmacologic DVT prophylaxis. On hospital day 2 after discussion with surgery patient was started on aspirin 81 mg daily. She was maintained on statin from time of admission. Physical therapy evaluated patient and patient has no motor deficits and was able to walk 300 feet. Speech therapy evaluated patient and she continues to have expressive aphasia. She will need outpatient speech therapy after discharge. We will have patient follow-up with Dr. Allen of spine surgery after discharge. We will have her follow-up with her primary care provider as well. Physical Exam Vital Signs: Temp Pulse Resp BP Pulse Ox 97.8 F 73 18 130/70 H 97 03/23/17 07:32 03/23/17 08:00 03/23/17 08:00 03/23/17 08:00 03/23/17 08:00 Intake & Output 03/22/17 03/23/17 03/24/17 06:59 06:59 06:59 Intake Total 0 4900 Output Total 2860 Balance 0 2040 Weight 65.77 kg 62.7 kg GENERAL: No acute distress HEENT: Conjunctiva clear, nonicteric, moist mucous membranes, no JVD, midline trachea RESPIRATORY: Clear to auscultation bilaterally, no wheezes, no rhonchi CARDIAC: Regular rate and rhythm, no murmurs/gallops/rubs ABDOMEN: Soft, nondistended, nontender, positive bowel sounds, no rebound, no guarding EXTREMETIES: No edema, cyanosis, clubbing NEUROLOGIC: Alert, oriented to person/place/time, expressive aphasia, CN's grossly intact, no focal deficits SKIN: Bandage clean/dry/intact over anterior neck PSYCH: Normal mood, normal affect Results Laboratory Results: 03/23/17 05:10 03/23/17 05:10 03/22/17 03/23/17 03/23/17 14:36 05:10 05:10 WBC 15.1 H RBC 4.09 Hgb 13.0 Hct 38.5 MCV 94 MCH 31.8 MCHC 33.8 RDW 12.8 Plt Count 226 Seg Neutrophils % 75.9 Lymphocytes % 15.9 Monocytes % 7.9 Eosinophils % 0.1 Basophils % 0.2 Absolute Neutrophils 11.5 H Absolute Lymphocytes 2.4 Absolute Monocytes 1.2 Absolute Eosinophils 0.0 Absolute Basophils 0.0 Sodium 142.3 Potassium 3.9 Chloride 107 Carbon Dioxide 23 Anion Gap 12 BUN 8 Creatinine 0.60 Est GFR ( Amer) > 60 Est GFR (Non-Af Amer) > 60 Glucose 110 Calcium 9.9 Total Bilirubin 0.6 AST 21 ALT 20 Alkaline Phosphatase 62 Total Protein 6.5 Albumin 3.9 Triglycerides 173 H Cholesterol 172.73 LDL Cholesterol Direct 79 VLDL Cholesterol 34.6 H HDL Cholesterol 62 TSH 1.60 Impressions: Cervical Spine X-Ray 03/22/17 00:00 IMPRESSION: Intraoperative images as described. Fluoroscopy 03/22/17 00:00 IMPRESSION: Intraoperative images as described. Head CT 03/22/17 00:00 IMPRESSION: NORMAL BRAIN CT WITHOUT CONTRAST. Head MRI 03/22/17 00:00 IMPRESSION: Acute small nonhemorrhagic cortical infarct in the posterior left temporal lobe. Report called to the patient's nurse in the PACU as above. EVIDENCE OF ACUTE STROKE: NO. Neck CTA 03/22/17 00:00 IMPRESSION: 1. Subcutaneous air along the neurovascular bundle and in the subcutaneous tissues of the neck. Etiology of this is uncertain. Clinical correlation is needed. 2. Soft plaque is present in the distal left common carotid artery proximal to the bifurcation. Carotid Doppler Study 03/22/17 13:03 IMPRESSION: No flow significant stenosis of the right or left carotid bifurcation. There are abnormal elevated systolic and diastolic velocities in the proximal left common carotid artery, with turbulent flow. Patient may have a proximal left common carotid artery stenosis. Consider CT angio neck for followup. This result was discussed with Dr. Gipson. Qualifiers PATEINT BEING DISCHARGED WITH ANY OF THE FOLLOWING DIAGNOSIS?: Stroke VTE patient discharged on overlapping Therapy?: No Reason(s) for not prescribing Overlap Therapy:: Not indicated Stroke Pt being discharged on Anti-thrombolytic therapy?: Yes Stroke Pt being discharged on Anti-coagulation therapy?: No Reason(s) for not prescribing Anti-coagulation therapy:: Not indicated Stroke Pt being discharged on Statins?: Yes Plan Time Spent: Less than 30 Minutes
[2017-03-23 11:59] VITALS: BP 131/71
--- NOTE | 2017-03-23 18:35 | PDOC PROGRESS REPORT ---
Subjective Progress Note for:: 03/23/17 Subjective:: Patient was eating breakfast without difficulty. Able to have a conversation with mild expressive aphasia. She states she is doing better than yesterday. Physical Exam Vital Signs: Temp Pulse Resp BP Pulse Ox 36.6 C 80 18 131/71 H 97 03/23/17 11:51 03/23/17 12:00 03/23/17 12:00 03/23/17 12:00 03/23/17 12:00 Intake & Output 03/22/17 03/23/17 03/24/17 06:59 06:59 06:59 Intake Total 0 4900 440 Output Total 2860 Balance 0 2040 440 Weight 65.77 kg 62.7 kg Neck exam: PRESENT: other - Dressing is dry clean and intact. No mass or significant swelling or ecchymosis around the dressing. No tracheal deviation appreciated. Neurological exam: PRESENT: alert, awake, oriented to person, oriented to place , oriented to time, oriented to situation Psychiatric exam: PRESENT: appropriate affect, normal mood Additional comments: She has full motor 5 out of 5 upper and lower extremity. Symmetrical as well. Her sensation to light touch on all 4 extremities. Good distal pulses as well. Results Laboratory Results: 03/23/17 05:10 03/23/17 05:10 03/23/17 03/23/17 05:10 05:10 WBC 15.1 H RBC 4.09 Hgb 13.0 Hct 38.5 MCV 94 MCH 31.8 MCHC 33.8 RDW 12.8 Plt Count 226 Seg Neutrophils % 75.9 Lymphocytes % 15.9 Monocytes % 7.9 Eosinophils % 0.1 Basophils % 0.2 Absolute Neutrophils 11.5 H Absolute Lymphocytes 2.4 Absolute Monocytes 1.2 Absolute Eosinophils 0.0 Absolute Basophils 0.0 Sodium 142.3 Potassium 3.9 Chloride 107 Carbon Dioxide 23 Anion Gap 12 BUN 8 Creatinine 0.60 Est GFR ( Amer) > 60 Est GFR (Non-Af Amer) > 60 Glucose 110 Calcium 9.9 Total Bilirubin 0.6 AST 21 ALT 20 Alkaline Phosphatase 62 Total Protein 6.5 Albumin 3.9 Triglycerides 173 H Cholesterol 172.73 LDL Cholesterol Direct 79 VLDL Cholesterol 34.6 H HDL Cholesterol 62 Impressions: Cervical Spine X-Ray 03/22/17 00:00 IMPRESSION: Intraoperative images as described. Fluoroscopy 03/22/17 00:00 IMPRESSION: Intraoperative images as described. Head CT 03/22/17 00:00 IMPRESSION: NORMAL BRAIN CT WITHOUT CONTRAST. Head MRI 03/22/17 00:00 IMPRESSION: Acute small nonhemorrhagic cortical infarct in the posterior left temporal lobe. Report called to the patient's nurse in the PACU as above. EVIDENCE OF ACUTE STROKE: NO. Neck CTA 03/22/17 00:00 IMPRESSION: 1. Subcutaneous air along the neurovascular bundle and in the subcutaneous tissues of the neck. Etiology of this is uncertain. Clinical correlation is needed. 2. Soft plaque is present in the distal left common carotid artery proximal to the bifurcation. Carotid Doppler Study 03/22/17 13:03 IMPRESSION: No flow significant stenosis of the right or left carotid bifurcation. There are abnormal elevated systolic and diastolic velocities in the proximal left common carotid artery, with turbulent flow. Patient may have a proximal left common carotid artery stenosis. Consider CT angio neck for followup. This result was discussed with Dr. Gipson. Assessment & Plan - Plan Summary Plan Summary: Patient is postop day 1 from a surgical procedure performed by Dr. Cadena. Patient did have a small cerebrovascular accident to the temporal lobe which explains for the patient's mild expressive aphasia. After discussing with Dr. Cadena patient has been approved to start daily regimen of aspirin [address] Gipson will proceed to prescribe the medication and discharge the patient when deemed stable.
== END 2017-03-23 14:39 | disposition home or self-care (01) ==
LOC: OROUT 05:29 → INOR 13:15 → 3W 16:40
PROVIDERS: ADMIT Family Medicine; ATTEND Family Medicine
PROC: 0RG20A0 Fusion of 2 or more Cervical Vertebral Joints with Interbody Fusion Device, Anterior Approach, Anterior Column, Open Approach (ICD-10-PCS; 2017-03-22)
PROC: 07DR3ZZ Extraction of Iliac Bone Marrow, Percutaneous Approach (ICD-10-PCS; 2017-03-22)
PROC: 0RT30ZZ Resection of Cervical Vertebral Disc, Open Approach (ICD-10-PCS; principal; 2017-03-22 07:30)
DX: I63.8 Other cerebral infarction (principal); R47.01 Aphasia; Z98.1 Arthrodesis status; M50.30 Other cervical disc degeneration, unspecified cervical region; M48.02 Spinal stenosis, cervical region; M50.10 Cervical disc disorder with radiculopathy, unspecified cervical region; E03.9 Hypothyroidism, unspecified; F31.9 Bipolar disorder, unspecified; E78.5 Hyperlipidemia, unspecified; F17.210 Nicotine dependence, cigarettes, uncomplicated; Z79.899 Other long term (current) drug therapy; Z79.82 Long term (current) use of aspirin; Z98.890 Other specified postprocedural states
CPT/HCPCS: 36415 ×2; 82962; 80178; 84443; 85025; 85027; 85610; 85730; 81025; 80053 ×2; 80061; 93880; 70551; 72040; 70450; 70498; 93005; 93010; 97163; 92523; 97167; 22856; 22858; G0378 ×3; C1713 ×2; A9270 ×8; J2250; J3490 ×8; J0690 ×3; J1100; J3010; J2370; J0330; J2405; J7120; J2704; J0131; G8978; G8979; G8980; G9162; G9163; G8987; G8988; G8989; 00600; J1170; J2800

== ENCOUNTER 2020-01-10 10:28 | Inpatient (IN) | payer MEDICARE ==
[2020-01-10 11:22] LABS: ABSOLUTE MONOCYTES (AUTO) 0.5 10^3/uL (0.1-1.4); ABSOLUTE NEUT (AUTO) 5.3 10^3/uL (1.7-8.2); BASOPHILS % (AUTO) 0.4 % (0-2); EOSINOPHILS % (AUTO) 0.5 % (0-6); HEMOGLOBIN 12.9 g/dL (12.0-15.5); LYMPHOCYTES % (AUTO) 14.4 % (13-45); MEAN CORPUSCULAR HEMOGLOBIN 29.3 pg (27.0-33.4); MEAN CORPUSCULAR HGB CONC 33.2 g/dL (32.0-36.0); MEAN CORPUSCULAR VOLUME 88 fl (80-97); MONOCYTES % (AUTO) 6.7 % (3-13); PLATELET COUNT 239 10^3/uL (150-450); RED BLOOD COUNT 4.42 10^6/uL (3.72-5.28); RED CELL DISTRIBUTION WIDTH 15.5 % (11.5-14.0); TOTAL CELLS COUNTED % (AUTO) 100 %; WHITE BLOOD COUNT 6.8 10^3/uL (4.0-10.5)
[2020-01-10 11:23] LABS: APPEARANCE,URINE CLOUDY; BILIRUBIN,URINE NEGATIVE (NEGATIVE); COLOR,URINE YELLOW; GLUCOSE, URINE NEGATIVE (NEGATIVE); KETONES,URINE NEGATIVE (NEGATIVE); LEUKOCYTE ESTERASE,URINE NEGATIVE (NEGATIVE); NITRITE,URINE NEGATIVE (NEGATIVE); PROTEIN,URINE NEGATIVE (NEGATIVE); URINE SPECIFIC GRAVITY 1.006; UROBILINOGEN,URINE NEGATIVE mg/dL (<2.0)
[2020-01-10] MEDS ORDERED: DIPH/PERTUSS(ACELL)/TETANUS VAC/PF 0.5 ML SYR (>=10YO) IM ONE (11:34)
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
[2020-01-10 11:39] LABS: URINE AMPHETAMINES SCREEN NEGATIVE; URINE BARBITURATES SCREEN NEGATIVE; URINE BENZODIAZEPINES SCREEN NEGATIVE; URINE COCAINE SCREEN NEGATIVE; URINE MARIJUANA (THC) SCREEN NEGATIVE; URINE METHADONE SCREEN NEGATIVE; URINE PHENCYCLIDINE SCREEN NEGATIVE
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
[2020-01-10 11:42] LABS: ALKALINE PHOSPHATASE 47 U/L (38-126); ANION GAP 8 (5-19); ASPARTATE AMINO TRANSFERASE 19 U/L (14-36); BILIRUBIN,TOTAL 0.4 mg/dL (0.2-1.3); BLOOD UREA NITROGEN 9 mg/dL (7-20); CALCIUM 9.7 mg/dL (8.4-10.2); CARBON DIOXIDE 21 mmol/L (22-30); CHLORIDE 106 mmol/L (98-107); GLUCOSE 164 mg/dL (75-110); POTASSIUM 3.7 mmol/L (3.6-5.0); TOTAL PROTEIN 6.8 g/dL (6.3-8.2)
[2020-01-10 11:47] LABS: ACETAMINOPHEN < 10 ug/mL (10-30); ALCOHOL < 10 mg/dL (NONE DETECTED); INTERNATIONAL RATION (INR) 0.98; SALICYLATE < 1.0 mg/dL (2.0-20.0)
[2020-01-10 11:48] LABS: PARTIAL THROMBOPLASTIN TIME 23.8 SEC (23.5-35.8)
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
[2020-01-10] MEDS ORDERED: LIDOCAINE 1% INJ-PF (10 MG/ML) 30 ML SDV ONE (12:59)
[2020-01-10] MEDS ORDERED: LIDOCAINE 1% INJ-PF (10 MG/ML) 30 ML SDV INJ ONE (13:12)
--- NOTE | 2020-01-10 13:27 | RADIOLOGY REPORT (SQ) ---
EXAM DESCRIPTION: CHEST SINGLE VIEW IMAGES COMPLETED DATE/TIME: 01/10/2020 1:17 pm REASON FOR STUDY: chest tube COMPARISON: AP view of the chest from 01/10/2020 at 1153 hours. EXAM PARAMETERS: NUMBER OF VIEWS: One view. TECHNIQUE: An AP view of the chest was obtained. RADIATION DOSE: NA LIMITATIONS: None. FINDINGS: LUNGS AND PLEURA: The left-sided has decreased in size after placement of a large-bore keyshawn st tube and its apical remnant measures 4 mm compared to 3.7 cm on the prior radiograph. There is no consolidation or sizable pleural effusion. MEDIASTINUM AND HILAR STRUCTURES: The mediastinal shift has resolved. HEART AND VASCULAR STRUCTURES: The cardiac silhouette and pulmonary vasculature are within normal manuel its. BONES: No acute findings. HARDWARE: As above. OTHER: Subcutaneous emphysema in the lateral aspect of the left hemithorax. IMPRESSION: The left-sided has decreased in size after placement of a large-bore chest tube and its apical remnant measures 4 mm compared to 3.7 cm on the prior radiograph. TECHNICAL DOCUMENTATION: JOB ID: [id number] 2010 [employer]- All Rights Reserved Reading location - IP/workstation name: [email or web address]
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
[2020-01-10] MEDS ORDERED: FENTANYL CITRATE INJ/PF 100 MCG/2 ML AMPUL IV ONE (13:41)
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
--- NOTE | 2020-01-10 15:34 | EKG REPORT ---
SEVERITY:- NORMAL ECG - SINUS RHYTHM : Confirmed by: Albert Bowser MD 10-Jan-2020 15:34:21
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
[2020-01-10] MEDS: MORPHINE SULFATE 10 MG/ML INJ IV PRN (20:15)
[2020-01-11] MEDS: MORPHINE SULFATE 10 MG/ML INJ IV PRN ×5 (00:17→22:48)
[2020-01-11 06:09] LABS: HEMATOCRIT 36.4 % (36.0-47.0); HEMOGLOBIN 12.2 g/dL (12.0-15.5); MEAN CORPUSCULAR HEMOGLOBIN 29.4 pg (27.0-33.4); MEAN CORPUSCULAR HGB CONC 33.6 g/dL (32.0-36.0); MEAN CORPUSCULAR VOLUME 88 fl (80-97); PLATELET COUNT 206 10^3/uL (150-450); RED BLOOD COUNT 4.16 10^6/uL (3.72-5.28); RED CELL DISTRIBUTION WIDTH 15.1 % (11.5-14.0); WHITE BLOOD COUNT 8.6 10^3/uL (4.0-10.5)
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
[2020-01-11] MEDS ORDERED: POLYETHYLENE GLYCOL 3350 POWDER 17 GM/1 PACKET PO ONE (17:30)
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
[2020-01-12] MEDS: MORPHINE SULFATE 10 MG/ML INJ IV PRN ×5 (02:49→20:08)
[2020-01-12 06:23] LABS: HEMATOCRIT 39.1 % (36.0-47.0); HEMOGLOBIN 12.9 g/dL (12.0-15.5); MEAN CORPUSCULAR HEMOGLOBIN 29.3 pg (27.0-33.4); MEAN CORPUSCULAR VOLUME 89 fl (80-97); PLATELET COUNT 202 10^3/uL (150-450); RED BLOOD COUNT 4.42 10^6/uL (3.72-5.28); RED CELL DISTRIBUTION WIDTH 15.2 % (11.5-14.0); WHITE BLOOD COUNT 9.1 10^3/uL (4.0-10.5)
--- NOTE | 2020-01-12 07:45 | RADIOLOGY REPORT (SQ) ---
EXAM DESCRIPTION: CHEST SINGLE VIEW IMAGES COMPLETED DATE/TIME: 01/12/2020 7:25 am REASON FOR STUDY: ptx COMPARISON: Chest films 01/10/2020 1318 hours and 1153 hours EXAM PARAMETERS: NUMBER OF VIEWS: One view. TECHNIQUE: Single frontal radiographic view of the chest acquired. RADIATION DOSE: NA LIMITATIONS: None. FINDINGS: LUNGS AND PLEURA: Large bore left chest tube in place. No left-sided pneumothorax. Minimal bibasilar atelectasis. No pleural effusions. No right pneumothorax. MEDIASTINUM AND HILAR STRUCTURES: No masses. Contour normal. HEART AND VASCULAR STRUCTURES: Heart normal in size. Normal vasculature. BONES: Lower cervical fusion hardware HARDWARE: Large bore left chest tube in place OTHER: No other significant finding. IMPRESSION: Large bore left chest tube in place. No pneumothorax TECHNICAL DOCUMENTATION: JOB ID: [id number] 2010 [employer]- All Rights Reserved Reading location - IP/workstation name: [email or web address]
[2020-01-12] MEDS: POLYETHYLENE GLYCOL 3350 POWDER 17 GM/1 PACKET PO SCH (11:16)
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
--- NOTE | 2020-01-12 16:04 | PDOC PROGRESS REPORT ---
Subjective Progress Note for:: 01/12/20 Subjective:: No adverse events overnight. No new complaints. Vital signs been stable. No chest pain or shortness of breath. She says her appetite is been poor. She has been able to rest fairly well. She has not tried to get up out of bed. She normally asked for the bedpan instead of to go to the bathroom. Reason For Visit: ATTEMPTED SUICIDE PNEUMOTHORAX Physical Exam Vital Signs: Temp Pulse Resp BP Pulse Ox 98.7 F 84 16 149/64 H 96 01/12/20 10:56 01/12/20 10:56 01/12/20 10:56 01/12/20 10:56 01/12/20 10:56 Intake & Output 01/11/20 01/12/20 01/13/20 06:59 06:59 06:59 Intake Total 900 650 618 Output Total 15 Balance 900 635 618 Weight 67.5 kg 67.2 kg General appearance: PRESENT: no acute distress, cooperative, disheveled Respiratory exam: PRESENT: clear to auscultation k[place], symmetrical, unlabored. ABSENT: accessory muscle use, chest wall tenderness, crackles, prolonged expir atory phas, rhonchi, tachypnea, wheezes Cardiovascular exam: PRESENT: RRR, +S1, +S2 Pulses: PRESENT: normal carotid pulses Vascular exam: PRESENT: normal capillary refill GI/Abdominal exam: PRESENT: normal bowel sounds, soft. ABSENT: distended, guarding, rebound, tenderness Extremities exam: ABSENT: clubbing, pedal edema Musculoskeletal exam: PRESENT: normal inspection. ABSENT: deformity Neurological exam: PRESENT: awake, oriented to person, oriented to place, oriented to situation Psychiatric exam: PRESENT: flat affect, suicidal ideation Skin exam: PRESENT: dry, warm, other - 2 sutured lacerations anterior chest, chest tube to suction on the left side Results Laboratory Results: 01/12/20 05:26 01/10/20 11:02 01/12/20 05:26 WBC 9.1 RBC 4.42 Hgb 12.9 Hct 39.1 MCV 89 MCH 29.3 MCHC 33.0 RDW 15.2 H Plt Count 202 Assessment and Plan - Diagnosis (1) Pneumothorax on left Is this a current diagnosis for this admission?: Yes Plan: Status post chest tube placement. General surgery is been consulted and will follow. (2) Stab wound of chest Qualifiers: Encounter type: subsequent encounter Laterality: left Qualified Code(s): S21.112D - Laceration without foreign body of left front wall of thorax without penetration into thoracic cavity, subsequent encounter Is this a current diagnosis for this admission?: Yes Plan: Lacerations have been sutured (3) Suicide attempt Is this a current diagnosis for this admission?: Yes Plan: She has been involuntarily committed at the recommendation of behavioral health. Once her chest tube is been removed and she is medically cleared, she will be placed in a psychiatric inpatient facility. (4) Bipolar disorder Qualifiers: Active/Remission status: currently active Current bipolar episode type: depressed Current episode severity: severe Psychotic features: without psychotic features Qualified Code(s): F31.4 - Bipolar disorder, current episode depressed, severe, without psychotic features Is this a current diagnosis for this admission?: Yes Plan: [place] and propranolol have been restarted at the recommendation of behavioral health - Time Time Spent with patient: 15-24 minutes
--- NOTE | 2020-01-12 16:11 | RADIOLOGY REPORT (SQ) ---
EXAM DESCRIPTION: CHEST SINGLE VIEW IMAGES COMPLETED DATE/TIME: 01/12/2020 3:51 pm REASON FOR STUDY: Port. X-ray at 1530 today eval pneumothorax COMPARISON: Earlier exam same date TECHNIQUE: Single frontal radiographic view of the chest acquired. NUMBER OF VIEWS: One view. LIMITATIONS: None. FINDINGS: LUNGS AND PLEURA: No pneumothorax. No consolidation or pleural effusion. MEDIASTINUM AND HILAR STRUCTURES: Stable. HEART AND VASCULAR STRUCTURES: Stable. BONES: No acute findings. HARDWARE: Left chest tube appears stable. OTHER: No other significant finding. IMPRESSION: NO ACUTE FINDINGS. TECHNICAL DOCUMENTATION: JOB ID: [id number] 2010 [employer]- All Rights Reserved Reading location - IP/workstation name: [email or web address]
[2020-01-12] MEDS: PROPRANOLOL HCL 40 MG TABLET PO SCH (21:43)
[2020-01-12] MEDS: LITHIUM CARBONATE 300 MG CAPSULE PO SCH (21:43)
[2020-01-13] MEDS: MORPHINE SULFATE 10 MG/ML INJ IV PRN ×3 (01:29→23:05)
[2020-01-13 05:18] LABS: HEMATOCRIT 35.5 % (36.0-47.0); MEAN CORPUSCULAR HEMOGLOBIN 29.5 pg (27.0-33.4); MEAN CORPUSCULAR HGB CONC 33.7 g/dL (32.0-36.0); MEAN CORPUSCULAR VOLUME 88 fl (80-97); PLATELET COUNT 232 10^3/uL (150-450); RED BLOOD COUNT 4.06 10^6/uL (3.72-5.28); RED CELL DISTRIBUTION WIDTH 15.4 % (11.5-14.0); WHITE BLOOD COUNT 8.4 10^3/uL (4.0-10.5)
[2020-01-13] MEDS: PROPRANOLOL HCL 40 MG TABLET PO SCH ×2 (09:00→22:51)
[2020-01-13] MEDS: POLYETHYLENE GLYCOL 3350 POWDER 17 GM/1 PACKET PO SCH (09:00)
[2020-01-13] MEDS: LITHIUM CARBONATE 300 MG CAPSULE PO SCH ×2 (09:00→22:51)
--- NOTE | 2020-01-13 10:00 | RADIOLOGY REPORT (SQ) ---
EXAM DESCRIPTION: CHEST SINGLE VIEW IMAGES COMPLETED DATE/TIME: 01/13/2020 9:31 am REASON FOR STUDY: ptx COMPARISON: AP view of the chest from 01/12/2020. EXAM PARAMETERS: NUMBER OF VIEWS: One view. TECHNIQUE: An AP view of the chest was obtained. RADIATION DOSE: NA LIMITATIONS: None. FINDINGS: LUNGS AND PLEURA: Unchanged atelectatic opacities in the inferior aspect of the left hemit horax. There is no pneumothorax. The position of the left apical large-bore chest tube is unchanged . MEDIASTINUM AND HILAR STRUCTURES: Stable mediastinal and hilar contours. HEART AND VASCULAR STRUCTURES: Stable cardiac silhouette. BONES: No acute findings. HARDWARE: As above. OTHER: No other finding. IMPRESSION: 1. Unchanged position of the left apical large-bore chest tube. There is no pneumothora x. 2. Atelectatic opacities in the inferior aspect of the left hemithorax. TECHNICAL DOCUMENTATION: JOB ID: [id number] 2010 [employer]- All Rights Reserved Reading location - IP/workstation name: [email or web address]
--- NOTE | 2020-01-13 13:01 | Operative Report ---
Operative Report DATE OF SURGERY: 01/13/20 PREOPERATIVE DIAGNOSIS: Traumatic left pneumothorax with her left chest tube pl acement POSTOPERATIVE DIAGNOSIS: Same OPERATION: Removal of left chest tube SURGEON: BRI TAYLOR TISSUE REMOVED OR ALTERED: None. Removal of chest tube COMPLICATIONS: None ESTIMATED BLOOD LOSS: 0 QUANTITATIVE BLOOD LOSS: 0 INTRAOPERATIVE FINDINGS: Patient has resolution of pneumothorax on chest x-ray yesterday and today. PROCEDURE: Patient was on the bed slightly to the right lateral decubitus position. The dressing along the left chest tube was removed. Patient did have morphine IV earlier. Chest tube insertion was exposed and the suture was subsequently divided. With the use of Vaseline gauze inside a 4 x 4, this was used to plug the chest tube site after pulling the chest tube immediately. Adhesive tape was placed over the dressing.. Chest x-ray will be obtained to make sure there is no recurrence of pneumothorax. Patient tolerated procedure well. If there is no recurrence of pneumothorax patient can be discharged to a psychiatric facility. Chest x-ray showed no pneumothorax with successful removal of the left chest tube.
--- NOTE | 2020-01-13 13:04 | RADIOLOGY REPORT (SQ) ---
EXAM DESCRIPTION: CHEST SINGLE VIEW IMAGES COMPLETED DATE/TIME: 01/13/2020 11:49 am REASON FOR STUDY: Chest tube removal. COMPARISON: AP view of the chest from 01/13/2020 at 0908 hours. EXAM PARAMETERS: NUMBER OF VIEWS: One view. TECHNIQUE: An AP view of the chest was obtained. RADIATION DOSE: NA LIMITATIONS: None. FINDINGS: LUNGS AND PLEURA: The large-bore left apical chest tube has been removed. There is no pne umothorax. The atelectatic opacities in the inferior aspect of the left hemithorax are unchanged. MEDIASTINUM AND HILAR STRUCTURES: No mediastinal or hilar contour abnormality. HEART AND VASCULAR STRUCTURES: The cardiac silhouette and pulmonary vasculature are within normal manuel its. BONES: No acute findings. HARDWARE: As above. OTHER: No other finding. IMPRESSION: Status post removal of the large-bore left apical chest tube. There is no pneumothorax. TECHNICAL DOCUMENTATION: JOB ID: [id number] 2010 [email or web address]- All Rights Reserved Reading location - IP/workstation name: [email or web address]
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
[2020-01-14] MEDS: PROPRANOLOL HCL 40 MG TABLET PO SCH ×2 (10:52→21:37)
[2020-01-14] MEDS: POLYETHYLENE GLYCOL 3350 POWDER 17 GM/1 PACKET PO SCH (10:52)
[2020-01-14] MEDS: LITHIUM CARBONATE 300 MG CAPSULE PO SCH ×2 (10:52→21:39)
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
[2020-01-14] MEDS: MAG HYDROX/AL HYDROX/SIMETH SUSP 30 ML UDCUP PO PRN (19:23)
[2020-01-15 08:21] VITALS: BP 152/54
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
[2020-01-15] MEDS: POLYETHYLENE GLYCOL 3350 POWDER 17 GM/1 PACKET PO SCH (09:01)
[2020-01-15] MEDS: PROPRANOLOL HCL 40 MG TABLET PO SCH (09:02)
[2020-01-15] MEDS: LITHIUM CARBONATE 300 MG CAPSULE PO SCH (09:02)
[2020-01-15] MEDS: MAG HYDROX/AL HYDROX/SIMETH SUSP 30 ML UDCUP PO PRN (09:03)
== END 2020-01-15 09:32 | DRG 200 ==
LOC: ER 10:28 → EH 15:31 → 4N 17:11
PROVIDERS: ADMIT Family Medicine; ATTEND Internal Medicine
PROC: 0W9B00Z Drainage of Left Pleural Cavity with Drainage Device, Open Approach (ICD-10-PCS; principal; 2020-01-10)
PROC: 0HQ5XZZ Repair Chest Skin, External Approach (ICD-10-PCS; 2020-01-10)
PROC: 0WPBX0Z Removal of Drainage Device from Left Pleural Cavity, External Approach (ICD-10-PCS; 2020-01-12)
DX: S27.0XXA Traumatic pneumothorax, initial encounter (principal); S21.112A Laceration without foreign body of left front wall of thorax without penetration into thoracic cavity, initial encounter; F31.4 Bipolar disorder, current episode depressed, severe, without psychotic features; X78.1XXA Intentional self-harm by knife, initial encounter; Y92.009 Unspecified place in unspecified non-institutional (private) residence as the place of occurrence of the external cause; G89.4 Chronic pain syndrome; M54.2 Cervicalgia; F41.9 Anxiety disorder, unspecified; T43.596A Underdosing of other antipsychotics and neuroleptics, initial encounter; F17.200 Nicotine dependence, unspecified, uncomplicated; I25.10 Atherosclerotic heart disease of native coronary artery without angina pectoris; E78.5 Hyperlipidemia, unspecified; Z79.899 Other long term (current) drug therapy; Z91.5 Personal history of self-harm
CPT/HCPCS: 36415; 71045; 80053; 80178; 80307; 81001; 83735; 85025; 85027; 85610; 85730; 86850; 86900; 86901; 90471; 90715; 93005; 93010; 96374; 99285; J2270; J3010; J3490

== ENCOUNTER 2020-02-07 18:46 | Inpatient (IN) | payer MEDICARE ==
[2020-02-07 19:58] LABS: APPEARANCE,URINE CLEAR; BILIRUBIN,URINE NEGATIVE (NEGATIVE); COLOR,URINE STRAW; GLUCOSE, URINE NEGATIVE (NEGATIVE); KETONES,URINE 20 mg/dL (NEGATIVE); LEUKOCYTE ESTERASE,URINE NEGATIVE (NEGATIVE); NITRITE,URINE NEGATIVE (NEGATIVE); PROTEIN,URINE NEGATIVE (NEGATIVE); URINE SPECIFIC GRAVITY 1.003; UROBILINOGEN,URINE NEGATIVE mg/dL (<2.0)
--- NOTE | 2020-02-07 21:06 | ER Document Report ---
ED Extremity Problem, Upper - General Chief Complaint: Arm Problem Stated Complaint: MUSCLE SPASMS Time Seen by Provider: 02/07/20 20:19 Primary Care Provider: FADI ESCOBAR PA-C [Primary Care Provider] - Follow up as needed TRAVEL OUTSIDE OF THE [place] IN LAST 30 DAYS: No - Related Data Allergies/Adverse Reactions: No Known Drug Allergies Allergy (Severe, Verified 03/06/17 10:27) Home Medications: in bag at bedside. Past Medical History - Social History Smoking Status: Unknown if Ever Smoked Family History: Reviewed & Not Pertinent. 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 Denies: Hx Cerebrovascular Accident GI Medical History: Reports: Hx Gastroesophageal Reflux Disease Musculoskeletal Medical History: Reports Hx Arthritis - Chronic neck and back pain Psychiatric Medical History: Reports: Hx Anxiety, Hx Bipolar Disorder, Hx Depression - anxiety Past Surgical History: Reports: Hx Orthopedic Surgery - discectomy 1998, Hx Tubal Ligation. Denies: Hx Hysterectomy - Immunizations Hx Diphtheria, Pertussis, Tetanus Vaccination: Yes Physical Exam - Vital signs Vitals: Temp 98.1 F 02/07/20 19:02 Course - Vital Signs Vital signs: Temp Pulse Resp BP Pulse Ox 98.4 F 89 26 H 146/76 H 97 02/07/20 19:40 02/07/20 19:40 02/07/20 21:24 02/07/20 21:24 02/07/20 21:24 - Laboratory Result Diagrams: 02/07/20 21:15 02/07/20 21:15 Laboratory results interpreted by me: 02/07/20 02/07/20 19:30 21:15 WBC 16.5 H RDW 14.6 H Lymph % (Auto) 12.8 L Absolute Neuts (auto) 12.6 H Absolute Monos (auto) 1.6 H Urine Ketones 20 H Urine Blood SMALL H Discharge - Discharge Referrals: FADI ESCOBAR PA-C [Primary Care Provider] - Follow up as needed
[2020-02-07 21:52] LABS: ABSOLUTE BASOPHILS # (AUTO) 0.1 10^3/uL (0.0-0.2); ABSOLUTE EOSINOPHILS # (AUTO) 0.1 10^3/uL (0.0-0.6); ABSOLUTE LYMPHOCYTES (AUTO) 2.1 10^3/uL (0.5-4.7); ABSOLUTE MONOCYTES (AUTO) 1.6 10^3/uL (0.1-1.4); ABSOLUTE NEUT (AUTO) 12.6 10^3/uL (1.7-8.2); BASOPHILS % (AUTO) 0.5 % (0-2); EOSINOPHILS % (AUTO) 0.3 % (0-6); HEMATOCRIT 37.6 % (36.0-47.0); HEMOGLOBIN 12.5 g/dL (12.0-15.5); LYMPHOCYTES % (AUTO) 12.8 % (13-45); MEAN CORPUSCULAR HEMOGLOBIN 28.7 pg (27.0-33.4); MEAN CORPUSCULAR HGB CONC 33.3 g/dL (32.0-36.0); MEAN CORPUSCULAR VOLUME 86 fl (80-97); MONOCYTES % (AUTO) 9.8 % (3-13); PLATELET COUNT 371 10^3/uL (150-450); RED BLOOD COUNT 4.35 10^6/uL (3.72-5.28); RED CELL DISTRIBUTION WIDTH 14.6 % (11.5-14.0); SEGMENTED NEUTROPHILS % (AUTO) 76.6 % (42-78); TOTAL CELLS COUNTED % (AUTO) 100 %; WHITE BLOOD COUNT 16.5 10^3/uL (4.0-10.5)
[2020-02-07] MEDS ORDERED: DIPHENHYDRAMINE HCL 50 MG/ML VIAL IV ONE (21:56)
[2020-02-07] MEDS ORDERED: NORMAL SALINE 1000 ML 1,000 ML IV ONE (21:56)
[2020-02-07] MEDS ORDERED: BENZTROPINE MESYLATE INJ 2 MG/2 ML AMPULE IV ONE (21:58)
[2020-02-07 22:09] LABS: ALBUMIN 3.8 g/dL (3.5-5.0); ALKALINE PHOSPHATASE 62 U/L (38-126); ANION GAP 17 (5-19); ASPARTATE AMINO TRANSFERASE 46 U/L (14-36); BILIRUBIN,DIRECT 0.4 mg/dL (0.0-0.4); BLOOD UREA NITROGEN 10 mg/dL (7-20); CALCIUM 9.7 mg/dL (8.4-10.2); CARBON DIOXIDE 18 mmol/L (22-30); CHLORIDE 100 mmol/L (98-107); GLUCOSE 84 mg/dL (75-110); POTASSIUM 3.7 mmol/L (3.6-5.0); TOTAL PROTEIN 7.1 g/dL (6.3-8.2)
--- NOTE | 2020-02-07 22:18 | ER Document Report ---
ED Psych Disorder / Suicide - General Mode of Arrival: Ambulatory Information source: Patient Cannot obtain history due to: Altered mental status TRAVEL OUTSIDE OF THE [place] IN LAST 30 DAYS: No - HPI Patient complains to provider of: Other - Contracted cramping unable to care for self Onset: Other Onset was: Gradual - Full day Quality of pain: Achy, Cramping Severity: Moderate Pain Level: 3 Suicide Risk Factors: Chronic illness Situational problems related to: Other - Friend told EMS he is no longer able to take care of her continuous as she is not able to help her self. Injury to: Lower extremity - Contracted, Upper extremity - Very contracted Normal mood: No Associated symptoms: Confused, Flat affect Similar symptoms previously: Yes Recently seen / treated by doctor: Yes - Related Data Home Medications: in bag at bedside. <DRAKE SANDOVAL - Last Filed: 02/09/20 07:48> <ADA MENDIETA - Last Filed: 02/09/20 11:32> - General Chief Complaint: Altered Mental Status Stated Complaint: MUSCLE SPASMS Time Seen by Provider: 02/07/20 20:19 Primary Care Provider: FADI ESCOBAR PA-C [Primary Care Provider] - Follow up as needed Notes: 59-year-old female presented to ED for altered mental status. She was brought to the emergency room to via EMS for contractions to the arms for the last few days. Patient states she has been cramping constantly for the last few days. She does have a history of being bipolar multiple other mental health nurses. EMS states that the boyfriend said that they are not able to care for her due to her condition. She does have a very strong odor of urine and stool. She does states she was able to give her own self her meds until a couple days ago when her contractions got so bad. (DRAKE SANDOVAL) - Related Data Allergies/Adverse Reactions: No Known Drug Allergies Allergy (Severe, Verified 03/06/17 10:27) Past Medical History - Social History Smoking Status: Unknown if Ever Smoked Frequency of alcohol use: None Drug Abuse: None Lives with: Spouse/Significant other Family History: Reviewed & Not Pertinent. denies: CVA Patient has homicidal ideation: No - Past Medical History Cardiac Medical History: Reports: Hx Coronary Artery Disease - CHOLESTEROL, Hx Hypercholesterolemia Pulmonary Medical History: Reports: Hx COPD Denies: Hx Asthma, Hx Bronchitis, Hx Pneumonia EENT Medical History: Reports: None Neurological Medical History: Reports: Hx Seizures - ALCOHOL RELATED SOBER 20+ YEARS Endocrine Medical History: Reports: None Renal/ Medical History: Reports: None Malignancy Medical History: Reports: None GI Medical History: Reports: Hx Gastroesophageal Reflux Disease Musculoskeletal Medical History: Reports Hx Arthritis - Chronic neck and back pain Skin Medical History: Reports None Psychiatric Medical History: Reports: Hx Anxiety, Hx Bipolar Disorder, Hx Depression - anxiety Traumatic Medical History: Reports: None Infectious Medical History: Reports: None Past Surgical History: Reports: Hx Orthopedic Surgery - discectomy 1998, Hx Tubal Ligation - Immunizations Hx Diphtheria, Pertussis, Tetanus Vaccination: Yes <DRAKE SANDOVAL - Last Filed: 02/09/20 07:48> Review of Systems - Review of Systems Constitutional: Other - Flat affect EENT: Other - Very little of movement Cardiovascular: No symptoms reported Respiratory: No symptoms reported Gastrointestinal: No symptoms reported Genitourinary: No symptoms reported Musculoskeletal: Other - Contracted arms and legs they are very painful as they are cramping Skin: No symptoms reported Hematologic/Lymphatic: No symptoms reported Neurological/Psychological: Anxiety, Other -: Yes All other systems reviewed and negative - Flat affect back <DRAKE SANDOVAL - Last Filed: 02/09/20 07:48> Physical Exam - Vital signs Interpretation: Hypertensive - General General appearance: Appears well, Anxious - HEENT Head: Normocephalic, Atraumatic Eyes: Normal Pupils: PERRL - Respiratory Respiratory status: No respiratory distress Chest status: Nontender Breath sounds: Normal Chest palpation: Normal - Cardiovascular Rhythm: Regular Heart sounds: Normal auscultation Murmur: No - Abdominal Inspection: Normal Distension: No distension Bowel sounds: Normal Tenderness: Nontender Organomegaly: No organomegaly - Back Back: Normal, Nontender - Extremities General upper extremity: Other - Both arms very contracted cramping she states she is not able to move them at all. She states they are discomfort. General lower extremity: Other - No movement to either leg and last moved by the staff. They are contracted. No spontaneous movement. No: Chi's sign - Neurological Neuro grossly intact: Yes Cognition: Normal Orientation: AAOx4 [place] Coma Scale Eye Opening: Spontaneous [place] Coma Scale Verbal: Oriented [place] Coma Scale Motor: Obeys Commands [place] Coma Scale Total: 15 Speech: Normal Motor strength normal: LUE, RUE, LLE, RLE Sensory: Normal - Psychological Associated symptoms: Normal affect, Normal mood - Skin Skin Temperature: Warm Skin Moisture: Dry Skin Color: Normal <DRAKE SANDOVAL - Last Filed: 02/09/20 07:48> - Vital signs Vitals: Temp 98.1 F 02/07/20 19:02 - General Notes: Flat affect anxious monosyllable (DRAKE SANDOVAL) Course - Laboratory Result Diagrams: 02/07/20 21:15 02/09/20 04:05 - Diagnostic Test Radiology reviewed: Image reviewed, Reports reviewed <DRAKE SANDOVAL - Last Filed: 02/09/20 07:48> - Laboratory Result Diagrams: 02/09/20 09:00 02/09/20 09:00 <ADA MENDIETA - Last Filed: 02/09/20 11:32> - Re-evaluation Re-evalutation: 02/09/20 07:49 Potassium level was low at 8 PM last night. Patient was treated with 40 mEq of potassium. Repeat potassium was at 3.1. She was given another 20 mEq of potassium. She will have repeat labs of CBC CMP and creatinine kinase drawn this morning to see if levels are improved. Patient has more mobility after the potassium was given last night. (DRAKE SANDOVAL) 02/08/20 10:00 I spoke with the patient at length. Patient is able to move her extremities, states she is normally ambulatory at home. She is answering questions appropriately. States that cramping is in the bilateral forearms and the bilateral thighs not in the calves or upper arms. She is able to straighten the legs and arms for me in the bed. She does have tremor which apparently is not a new issue. She is medically cleared for psychiatric services (ADA MENDIETA) - Vital Signs Vital signs: Temp Pulse Resp BP Pulse Ox 97.7 F 77 18 120/63 95 02/09/20 07:40 02/09/20 07:40 02/09/20 07:40 02/09/20 07:40 02/09/20 07:40 - Laboratory Laboratory results interpreted by me: 02/07/20 02/07/20 02/07/20 19:30 21:15 21:15 WBC 16.5 H RDW 14.6 H Lymph % (Auto) 12.8 L Absolute Neuts (auto) 12.6 H Absolute Monos (auto) 1.6 H Seg Neutrophils % Sodium 135.0 L Potassium Chloride Carbon Dioxide 18 L BUN Glucose AST 46 H Creatine Kinase Total Protein Albumin Urine Ketones 20 H Urine Blood SMALL H Acetaminophen 02/07/20 02/08/20 02/09/20 21:15 19:40 04:05 WBC RDW Lymph % (Auto) Absolute Neuts (auto) Absolute Monos (auto) Seg Neutrophils % Sodium 135.5 L Potassium 2.9 L* 3.1 L Chloride 113 H Carbon Dioxide BUN 6 L 6 L Glucose 135 H 131 H AST 54 H Creatine Kinase 605 H 706 H Total Protein 6.0 L Albumin 2.9 L Urine Ketones Urine Blood Acetaminophen < 10 L 02/09/20 02/09/20 09:00 09:00 WBC 12.5 H RDW 14.7 H Lymph % (Auto) 9.3 L Absolute Neuts (auto) 10.0 H Absolute Monos (auto) Seg Neutrophils % 79.6 H Sodium Potassium 2.9 L* Chloride 117 H Carbon Dioxide 21 L BUN 5 L Glucose 139 H AST 60 H Creatine Kinase 1174 H Total Protein 6.2 L Albumin 3.1 L Urine Ketones Urine Blood Acetaminophen Discharge <DRAKE SANDOVAL - Last Filed: 02/09/20 07:48> - Discharge Admitting Provider: Sara (Hospitalist) Unit Admitted: Telemetry <ADA MENDIETA - Last Filed: 02/09/20 11:32> - Discharge Clinical Impression: Elevated troponin Rhabdomyolysis Qualifiers: Rhabdomyolysis type: non-traumatic Qualified Code(s): M62.82 - Rhabdomyolysis Medication adverse effect Qualifiers: Encounter type: initial encounter Qualified Code(s): T50.905A - Adverse effect of unspecified drugs, medicaments and biological substances, initial encounter Condition: Stable Disposition: ADMITTED OBSERVATION Referrals: FADI ESCOBAR PA-C [Primary Care Provider] - Follow up as needed
--- NOTE | 2020-02-07 22:23 | RADIOLOGY REPORT (SQ) ---
EXAM DESCRIPTION: XR CHEST 1 VIEW COMPLETED DATE/TME: 02/07/2020 21:36 CLINICAL HISTORY: 59 years, Female, short of breath COMPARISON: 01/13/2020 chest NUMBER OF VIEWS: 1 TECHNIQUE: Portable chest LIMITATIONS: None. FINDINGS: The heart size is normal. Fullness in the right hilar region, worrisome for adenopathy. Vague nodular density in the right lung base. Consider follow-up with dedicated CT. No pneumothorax. IMPRESSION: Nodular density in the right lung base and fullness in the right hilar region for which adenopathy is not excluded. Consider follow-up with dedicated CT copyright 2010 [employer]- All Rights Reserved
[2020-02-07 22:30] LABS: URINE AMPHETAMINES SCREEN NEGATIVE; URINE BARBITURATES SCREEN NEGATIVE; URINE BENZODIAZEPINES SCREEN NEGATIVE; URINE COCAINE SCREEN NEGATIVE; URINE MARIJUANA (THC) SCREEN NEGATIVE; URINE METHADONE SCREEN NEGATIVE; URINE PHENCYCLIDINE SCREEN NEGATIVE
[2020-02-07 22:31] LABS: ACETAMINOPHEN < 10 ug/mL (10-30); CREATINE KINASE 605 U/L (30-135); LITHIUM 1.2 mEq/L (0.6-1.2)
[2020-02-08] MEDS ORDERED: NORMAL SALINE 1000 ML 1,000 ML IV ONE ×2 (02:48→20:56)
[2020-02-08] MEDS ORDERED: LORAZEPAM INJ 2 MG/1 ML VIAL IV ONE (03:16)
[2020-02-08] MEDS: LITHIUM CARBONATE 300 MG CAPSULE PO SCH (18:05)
[2020-02-08] MEDS: BENZTROPINE MESYLATE 1 MG TABLET PO SCH (18:05)
[2020-02-08] MEDS: PROPRANOLOL HCL 40 MG TABLET PO SCH (18:22)
--- NOTE | 2020-02-08 20:00 | PSYCHOLOGICAL NOTE ---
Psych Note - Psych Note Date seen by psych provider: 02/08/20 Time seen by psych provider: 11:40 Psych Note: Reason for consult: odd presentation Patient disclosed she has been taking her medications as directed (all of her medications ie the medications prior to inpatient, the medication she received while inpatient, and the medication her outpatient provider prescribed after she was discharged; she did not stop medications that were meant to be stopped and just kept adding the medications). She denies she wants to and states her medications have been confusing her; 'but I thought I was doing pretty good until this happened." Patient is alert and orientated to person, place time and circumstance. Patient is currently experiencing difficulties with her muscles (she is ridged and unable to relax them). She is currently unable to care for herself as she cannot move freely. Medication recommendations per [facility]'s contracted psychiatrist Dr.Akintayo HIGGINS are as follows [place] 600 mg twice daily Cogentin 1 mg daily propanolol 40 mg twice daily Impression\\plan: Patient is commended for rescind of 24-hour petition for evaluation; paperwork is signed and placed in patient's chart. Patient has received 3 medication adjustments within the 1 month. Patient did not realize she was supposed to stop taking previous medications and was taking all of the different prescriptions. Currently patient is unable to care for herself; patient is recommended to continue voluntarily for mental health observation. Medication recommendations have been provided. Patient will be reevaluated. Dr. Mcdonald was consulted to care management of this patient; tending physicians in agreement with recommendations and disposition.
[2020-02-08 20:47] LABS: ANION GAP 8 (5-19); BLOOD UREA NITROGEN 6 mg/dL (7-20); CALCIUM 9.1 mg/dL (8.4-10.2); CARBON DIOXIDE 22 mmol/L (22-30); CHLORIDE 106 mmol/L (98-107); CREATINE KINASE 706 U/L (30-135); GLUCOSE 135 mg/dL (75-110)
[2020-02-08 20:54] LABS: POTASSIUM 2.9 mmol/L (3.6-5.0)
--- NOTE | 2020-02-08 22:03 | EKG REPORT ---
SEVERITY:- ABNORMAL ECG - BASELINE ARTIFACTS PREVENT INTERP, REC REPEAT EKG MULTIFORM VENTRICULAR PREMATURE COMPLEXES NONSPECIFIC IVCD WITH LAD LVH WITH SECONDARY REPOLARIZATION ABNORMALITY : Confirmed by: Elsa Cruz 08-Feb-2020 22:03:14
[2020-02-08] MEDS: POTASSI CL 20 MEQ/50 ML RIDER 20 MEQ/50 ML RTUPB IV SCH (22:16)
[2020-02-09] MEDS: POTASSI CL 20 MEQ/50 ML RIDER 20 MEQ/50 ML RTUPB IV SCH (00:09)
[2020-02-09 04:53] LABS: ALBUMIN 2.9 g/dL (3.5-5.0); ALKALINE PHOSPHATASE 57 U/L (38-126); ANION GAP 5 (5-19); ASPARTATE AMINO TRANSFERASE 54 U/L (14-36); BILIRUBIN,DIRECT 0.2 mg/dL (0.0-0.4); BILIRUBIN,TOTAL 0.7 mg/dL (0.2-1.3); BLOOD UREA NITROGEN 6 mg/dL (7-20); CALCIUM 9.2 mg/dL (8.4-10.2); CARBON DIOXIDE 22 mmol/L (22-30); CHLORIDE 113 mmol/L (98-107); GLUCOSE 131 mg/dL (75-110); POTASSIUM 3.1 mmol/L (3.6-5.0)
[2020-02-09] MEDS ORDERED: POTASSI CL 20 MEQ/50 ML RIDER 20 MEQ/50 ML RTUPB IV ONE ×2 (05:28→09:38)
--- NOTE | 2020-02-09 09:29 | ER Document Report ---
Doctor's Note Notes: 02/09/20 09:28 I went to evaluate the patient. I spoke with nursing about the patient. Patient has been ingesting large amounts of water. We will slightly restrict the water consumption as this may drop her sodium. Her potassium and CK total are pending recheck. Patient appears much better today. She is moving her arms freely she is laying in the bed with her legs completely extended.
[2020-02-09 09:31] LABS: ALBUMIN 3.1 g/dL (3.5-5.0); ALKALINE PHOSPHATASE 60 U/L (38-126); ANION GAP 5 (5-19); ASPARTATE AMINO TRANSFERASE 60 U/L (14-36); BILIRUBIN,DIRECT 0.1 mg/dL (0.0-0.4); BILIRUBIN,TOTAL 0.6 mg/dL (0.2-1.3); BLOOD UREA NITROGEN 5 mg/dL (7-20); CALCIUM 9.4 mg/dL (8.4-10.2); CARBON DIOXIDE 21 mmol/L (22-30); CHLORIDE 117 mmol/L (98-107); CREATINE KINASE 1174 U/L (30-135); GLUCOSE 139 mg/dL (75-110); TOTAL PROTEIN 6.2 g/dL (6.3-8.2)
[2020-02-09 09:33] LABS: ABSOLUTE LYMPHOCYTES (AUTO) 1.2 10^3/uL (0.5-4.7); ABSOLUTE MONOCYTES (AUTO) 1.3 10^3/uL (0.1-1.4); BASOPHILS % (AUTO) 0.4 % (0-2); EOSINOPHILS % (AUTO) 0.3 % (0-6); HEMATOCRIT 38.3 % (36.0-47.0); HEMOGLOBIN 12.7 g/dL (12.0-15.5); LYMPHOCYTES % (AUTO) 9.3 % (13-45); MEAN CORPUSCULAR HEMOGLOBIN 28.5 pg (27.0-33.4); MEAN CORPUSCULAR HGB CONC 33.2 g/dL (32.0-36.0); MEAN CORPUSCULAR VOLUME 86 fl (80-97); MONOCYTES % (AUTO) 10.4 % (3-13); PLATELET COUNT 329 10^3/uL (150-450); RED BLOOD COUNT 4.46 10^6/uL (3.72-5.28); RED CELL DISTRIBUTION WIDTH 14.7 % (11.5-14.0); SEGMENTED NEUTROPHILS % (AUTO) 79.6 % (42-78); TOTAL CELLS COUNTED % (AUTO) 100 %; WHITE BLOOD COUNT 12.5 10^3/uL (4.0-10.5)
[2020-02-09 09:34] LABS: POTASSIUM 2.9 mmol/L (3.6-5.0)
[2020-02-09] MEDS ORDERED: POTASSIUM CHLORIDE 20 MEQ PACKET PO ONE (09:38)
[2020-02-09] MEDS ORDERED: NORMAL SALINE 500 ML IV ONE (09:39)
--- NOTE | 2020-02-09 09:42 | ER Document Report ---
Doctor's Note Notes: 02/09/20 09:40 Patient's potassium 2.9, CK total is elevated above 1100. Will give additional IV fluids will give potassium replacement.
--- NOTE | 2020-02-09 10:14 | ER Document Report ---
Doctor's Note Notes: 02/09/20 10:13 I have added a troponin given the patient has no chest pain shortness of breath given the continued elevation of her CK totals and hypokalemia to ensure that patient is not having an NSTEMI. Patient with essential tremors making difficult to monitor heart rate. I did check a radial pulse on her and it was 76. We will keep her on the monitor given the potassium replacement issues 02/09/20 10:[address] Rios. Troponin is 0.245. Attempting to get repeat EKG. Have ordered aspirin. Patient is not having any chest pain shortness of breath. Have requested patient be moved to the acute side of the emergency department on monitor. Will discuss with cardiology, hospitalist regarding sydni osei admission. 02/09/20 10:54 On review of the records discussed with Dwayne from the psychiatric team yesterday. [facility] trazodone 100 mg at night, propranolol 80 mg twice daily, risperidone 2 mg twice daily, Ambien 10 mg at night, lithium 600 mg twice daily. When patient went to [place] she was then prescribed trazodone 100 mg at night, Abilify 15 mg at night, Cogentin 1 mg twice daily. After discharge from [place] she was then prescribed by [facility] again trazodone 100 mg at night, propranolol 40 mg twice daily, risperidone 2 mg twice daily, Effexor 75 mg daily, Ambien 10 mg at night. Psychiatric team believe patient was taking all of these medications and did not stop taking them from previous providers within the last month because even though she had been taken off of lithium she was still positive for lithium on her presentation here 2 days ago. 02/09/20 11:[address] Filiberto Amaro, Cardiology. We discussed the patient's medications, electrolytes, troponin, EKG changes. Does not believe that this is ACS, patient has no chest pain, she likely has mild rhabdomyolysis causing generalized muscle breakdown and troponin leak. He would not treat this as ACS at this point but would continue to monitor electrolytes. Will discuss with hospitalist for admission 02/09/20 11:[address] Elias, Hospitalist. Case discussed, will admit to telemetry observation
[2020-02-09] MEDS ORDERED: ASPIRIN 81 MG TABLET, CHEWABLE PO ONE (10:32)
[2020-02-09] MEDS: BENZTROPINE MESYLATE 1 MG TABLET PO SCH (11:18)
[2020-02-09] MEDS: LITHIUM CARBONATE 300 MG CAPSULE PO SCH ×2 (11:18→18:40)
[2020-02-09] MEDS: PROPRANOLOL HCL 40 MG TABLET PO SCH ×2 (11:18→18:09)
[2020-02-09] MEDS ORDERED: ONDANSETRON 4 MG TAB.RAPDIS PO PRN (15:31)
[2020-02-09] MEDS ORDERED: ONDANSETRON HCL INJ/PF 4 MG/2 ML SDV IV PRN (15:31)
--- NOTE | 2020-02-09 17:07 | Progress Note ---
Provider Note Provider Note: Patient has been seen, examined, and evaluated by me today. Patient was admitted late this morning by overnight physician. He was admitted for altered mental status, hyponatremia, elevated LFTs. CT head chest x-ray did not show acute abnormalities. He did have elevated WBC which is not explained by labs/imaging. Ammonia level was normal and UA was unremarkable. Patient is fully alert and he is oriented to self/location only. It is suspected that the patient may have taken his Thorazine dose more than once and become confused. His son helps him manage his medications, however he has been noted that the patient possibly is taking his medications separately from the doses his son gives him. These will need to be secured safely in the patient's home in the future. Patient would benefit greatly from home health nursing for medication management.
[2020-02-09] MEDS ORDERED: LITHIUM CARBONATE 300 MG CAPSULE ONE (18:29)
--- NOTE | 2020-02-09 18:36 | EKG REPORT ---
SEVERITY:- ABNORMAL ECG - PROBABLE SINUS RHYTHM CAN NOT R/O A-FLUTTER LAD, CONSIDER LEFT ANTERIOR FASCICULAR BLOCK NONSPECIFIC T ABNORMALITIES, DIFFUSE LEADS : Confirmed by: Elsa Cruz 09-Feb-2020 18:35:29
--- NOTE | 2020-02-09 18:37 | EKG REPORT ---
SEVERITY:- ABNORMAL ECG - SINUS RHYTHM LEFT ANTERIOR FASCICULAR BLOCK CONSIDER POSTERIOR INFARCT : Confirmed by: Elsa Cruz 09-Feb-2020 18:36:25
[2020-02-09] MEDS: RINGERS SOLUTION,LACTATED 1,000 ML IV PRN (18:40)
--- NOTE | 2020-02-09 18:49 | PDOC H&P ---
History of Present Illness Admission Date/PCP: 02/09/20 11:47 FADI ESCOBAR PA-C History of Present Illness: LM COOLEY is a 59 year old female who presents with a 3-day history of progressive muscle stiffness and confusion which she states began after she began taking her home psychiatric medication as it was prescribed by multiple different providers/facilities. Highly suspect she took medications that were actually discontinued. She was noted to have rhabdomyolysis on admission with CK of 1200. ED physician checked troponin though patient did not have any chest pain. Troponin was elevated and has been trending downward. We are continuing to trend troponin. Calcium is low at 2.9 this is being repleted. Patient has a history of bipolar disorder and prior suicide attempt for which she was admitted to a psychiatric facility. She has been started on IV fluids. Psychiatry has been consulted by ED and they have reconciled the patient's psychiatric medications fully. Patient will be admitted under observation to [facility]. Past Medical History Cardiac Medical History: Reports: Coronary Artery Disease - CHOLESTEROL, Hyperlipidema Pulmonary Medical History: Reports: Chronic Obstructive Pulmonary Disease (COPD) Denies: Asthma, Bronchitis, Pneumonia EENT Medical History: Reports: None Neurological Medical History: Reports: Seizures - ALCOHOL RELATED SOBER 20+ YEARS Endocrine Medical History: Reports: None Renal/ Medical History: Reports: None Malignancy Medical History: Reports: None GI Medical History: Reports: Gastroesophageal Reflux Disease Musculoskeltal Medical History: Reports: Arthritis - Chronic neck and back pain Skin Medical History: Reports: None Psychiatric Medical History: Reports: Bipolar Disorder, Depression - anxiety Traumatic Medical History: Reports: None Hematology: Denies: Anemia Infectious Medical History: Reports: None Past Surgical History Past Surgical History: Reports: Orthopedic Surgery - discectomy 1998, Tubal Liga tion Denies: Hysterectomy Social History Lives with: Spouse/Significant other Smoking Status: Former Smoker Frequency of Alcohol Use: None Hx Recreational Drug Use: No Drugs: None Hx Prescription Drug Abuse: No - Advance Directive Resuscitation Status: Full Code Surrogate healthcare decision maker:: Daughter Lela Family History Family History: Reviewed & Not Pertinent. denies: CVA Parental Family History Reviewed: Yes Children Family History Reviewed: Yes Sibling(s) Family History Reviewed.: Yes Medication/Allergy Home Medications: Omeprazole 40 mg PO DAILY 07/06/15 [place] Carbonate 600 mg PO Q12 03/06/17 Simvastatin 20 mg PO QHS 03/06/17 Trazodone HCl 100 mg PO QHS 03/06/17 Zolpidem Tartrate [Ambien] 10 mg PO QHS 03/06/17 Fluticasone Propion/Salmeterol [Wixela 250-50 Inhub] 1 each IH BID 01/10/20 Propranolol HCl [Inderal 40 Mg Tablet] 80 mg PO BID 01/10/20 Risperidone [Risperdal 1 mg Tablet] 2 mg PO Q12 01/10/20 Tizanidine HCl [Zanaflex 4 Mg Tablet] 4 mg PO Q8HP PRN 01/10/20 Amlodipine Besylate [Norvasc 5 mg Tablet] 5 mg PO DAILY 02/09/20 Aripiprazole [Abilify] 15 mg PO QHS 02/09/20 Benztropine Mesylate [Cogentin 1 mg Tablet] 1 mg PO BID 02/09/20 Venlafaxine HCl [Venlafaxine HCl ER] 150 mg PO DAILY 02/09/20 Allergies/Adverse Reactions: No Known Drug Allergies Allergy (Severe, Verified 03/06/17 10:27) Review of Systems All systems: reviewed and no additional remarkable complaints except as stated - See HPI for full ROS, otherwise negative Physical Exam Vital Signs: Temp Pulse Resp BP Pulse Ox 97.3 F 47 L 20 100/60 99 02/09/20 15:16 02/09/20 15:16 02/09/20 15:16 02/09/20 15:23 02/09/20 15:16 Intake & Output 02/08/20 02/09/20 02/10/20 06:59 06:59 06:59 Intake Total 1999 97 2880 Output Total 450 Balance 1999 97 2430 Weight 63.9 kg General appearance: PRESENT: no acute distress, well-developed, well-nourished Head exam: PRESENT: atraumatic, normocephalic Eye exam: PRESENT: conjunctiva pink Mouth exam: PRESENT: moist Respiratory exam: PRESENT: clear to auscultation [place]. ABSENT: rales, rhonchi, wheezes Cardiovascular exam: PRESENT: bradycardia GI/Abdominal exam: PRESENT: normal bowel sounds, soft. ABSENT: distended, guarding, mass, organolmegaly, rebound, tenderness Rectal exam: PRESENT: deferred Extremities exam: ABSENT: pedal edema Neurological exam: PRESENT: alert, awake, oriented to person, oriented to place, oriented to time, oriented to situation Psychiatric exam: PRESENT: anxious Skin exam: PRESENT: dry, intact, warm Results Laboratory Results: 02/09/20 09:00 02/09/20 09:00 02/08/20 02/09/20 02/09/20 19:40 04:05 09:00 WBC 12.5 H RBC 4.46 Hgb 12.7 Hct 38.3 MCV 86 MCH 28.5 MCHC 33.2 RDW 14.7 H Plt Count 329 Seg Neutrophils % 79.6 H Sodium 135.5 L 140.1 Potassium 2.9 L* 3.1 L Chloride 106 113 H Carbon Dioxide 22 22 Anion Gap 8 5 BUN 6 L 6 L Creatinine 0.67 0.69 Est GFR ( Amer) > 60 > 60 Glucose 135 H 131 H Calcium 9.1 9.2 Magnesium Total Bilirubin 0.7 AST 54 H Alkaline Phosphatase 57 Total Protein 6.0 L Albumin 2.9 L TSH 02/09/20 02/09/20 02/09/20 09:00 09:00 09:00 WBC RBC Hgb Hct MCV MCH MCHC RDW Plt Count Seg Neutrophils % Sodium 143.0 Potassium 2.9 L* Chloride 117 H Carbon Dioxide 21 L Anion Gap 5 BUN 5 L Creatinine 0.66 Est GFR ( Amer) > 60 Glucose 139 H Calcium 9.4 Magnesium 2.1 Total Bilirubin 0.6 AST 60 H Alkaline Phosphatase 60 Total Protein 6.2 L Albumin 3.1 L TSH 2.21 02/07/20 19:30 Catheterized Urine Urine Culture - Final NO GROWTH 2 DAYS 02/07/20 02/08/20 02/09/20 21:15 19:40 09:00 Creatine Kinase 605 H 706 H 1174 H Troponin I 02/09/20 02/09/20 09:00 17:00 Creatine Kinase Troponin I 0.245 0.155 Impressions: Chest X-Ray 02/07/20 21:36 IMPRESSION: Nodular density in the right lung base and fullness in the right hilar region for which adenopathy is not excluded. Consider follow-up with dedicated CT copyright 2010 [employer]- All Rights Reserved Assessment and Plan - Diagnosis (1) Rhabdomyolysis Qualifiers: Rhabdomyolysis type: non-traumatic Qualified Code(s): M62.82 - Rhabdomyolysis Is this a current diagnosis for this admission?: Yes Plan: CK initially 1200 on admission, trending IV fluids Renal function normal on admission, trend BMP Troponin elevated likely due to rhabdomyolysis, patient has no chest pain Psychiatric medications appropriately reconciled by psychiatrist here (2) Elevated troponin Is this a current diagnosis for this admission?: Yes Plan: Likely due to rhabdomyolysis, patient denies chest pain Cardiology was called by ED and they wanted patient admitted for observation and trending troponins Patient denies history of cardiac disease (3) Medication adverse effect Qualifiers: Encounter type: initial encounter Qualified Code(s): T50.905A - Adverse effect of unspecified drugs, medicaments and biological substances, initial encounter Is this a current diagnosis for this admission?: Yes Plan: Psychiatry consulted by ED and I have reconciled the patient's medications (4) Bipolar disorder Qualifiers: Active/Remission status: currently active Current bipolar episode type: depressed Current episode severity: severe Psychotic features: without psychotic features Qualified Code(s): F31.4 - Bipolar disorder, current episode depressed, severe, without psychotic features Is this a current diagnosis for this admission?: Yes Plan: Medication regimen per psychiatrist (5) Expressive aphasia Is this a current diagnosis for this admission?: Yes Plan: Chronic, baseline due to prior CVA (6) Anxiety Is this a current diagnosis for this admission?: Yes Plan: Melatonin and as needed Ativan nightly as needed for sleep - Plan Summary Summary: Please disregard this note as it was mistakenly put in on the incorrect patient. Please delete/remove this note if possible. - Time Time Spent with patient: 35 or more minutes Medications reviewed and adjusted accordingly: Yes Anticipated discharge: Home Within: within 48 hours
[2020-02-09] MEDS: MELATONIN 3 MG TABLET PO SCH (21:43)
[2020-02-10] MEDS: RINGERS SOLUTION,LACTATED 1,000 ML IV PRN ×3 (05:15→19:10)
[2020-02-10 05:55] LABS: ABSOLUTE EOSINOPHILS # (AUTO) 0.1 10^3/uL (0.0-0.6); ABSOLUTE LYMPHOCYTES (AUTO) 1.5 10^3/uL (0.5-4.7); ABSOLUTE MONOCYTES (AUTO) 1.1 10^3/uL (0.1-1.4); ABSOLUTE NEUT (AUTO) 9.5 10^3/uL (1.7-8.2); BASOPHILS % (AUTO) 0.4 % (0-2); EOSINOPHILS % (AUTO) 1.1 % (0-6); HEMOGLOBIN 11.3 g/dL (12.0-15.5); LYMPHOCYTES % (AUTO) 12.2 % (13-45); MEAN CORPUSCULAR HEMOGLOBIN 28.4 pg (27.0-33.4); MEAN CORPUSCULAR HGB CONC 33.2 g/dL (32.0-36.0); MEAN CORPUSCULAR VOLUME 86 fl (80-97); MONOCYTES % (AUTO) 9.1 % (3-13); PLATELET COUNT 279 10^3/uL (150-450); RED BLOOD COUNT 3.98 10^6/uL (3.72-5.28); SEGMENTED NEUTROPHILS % (AUTO) 77.2 % (42-78); TOTAL CELLS COUNTED % (AUTO) 100 %; WHITE BLOOD COUNT 12.3 10^3/uL (4.0-10.5)
[2020-02-10] MEDS: PANTOPRAZOLE SODIUM 40 MG TABLET.DR PO SCH (05:58)
[2020-02-10 06:20] LABS: BLOOD UREA NITROGEN 6 mg/dL (7-20); CALCIUM 8.8 mg/dL (8.4-10.2); CARBON DIOXIDE 24 mmol/L (22-30); GLUCOSE 118 mg/dL (75-110); PHOSPHORUS 2.5 mg/dL (2.5-4.5); POTASSIUM 3.1 mmol/L (3.6-5.0)
[2020-02-10 06:25] LABS: ANION GAP 5 (5-19); CHLORIDE 111 mmol/L (98-107)
[2020-02-10] MEDS ORDERED: POTASSI CL 20 MEQ/50 ML RIDER 20 MEQ/50 ML RTUPB IV ONE (08:18)
[2020-02-10] MEDS ORDERED: PROPRANOLOL HCL 40 MG TABLET PO SCH (10:00)
--- NOTE | 2020-02-10 10:38 | PDOC PROGRESS REPORT ---
Subjective Progress Note for:: 02/10/20 Subjective:: Patient is very jittery. She complains of aching all over. She states that she can open and close her hands. Also telemetry reveals tacky and bradycardia. Initial EKG in the emergency department showed T wave inversions. Repeat EKG did not reflect the same. Reason For Visit: RHABDOMYOLYSIS HYPOKALEMIA BIPOLAR DISORDER Physical Exam Vital Signs: Temp Pulse Resp BP Pulse Ox 98.0 F 67 24 H 124/54 L 99 02/10/20 08:00 02/10/20 08:00 02/10/20 08:00 02/10/20 08:00 02/10/20 08:00 Intake & Output 02/09/20 02/10/20 02/11/20 06:59 06:59 06:59 Intake Total 97 14911 1156 Output Total 4150 1100 Balance 97 7530 56 Weight 67.9 kg General appearance: PRESENT: cooperative, severe distress - Moderate to severe distress. Resting in bed. "Shaking all over., well-developed Head exam: PRESENT: atraumatic, normocephalic Ear exam: PRESENT: normal external ear exam. ABSENT: bleeding - `, drainage Mouth exam: PRESENT: dry mucosa, tongue midline Respiratory exam: PRESENT: clear to auscultation [place], symmetrical, tachypnea, unlabored. ABSENT: rales, rhonchi Cardiovascular exam: PRESENT: RRR, +S1, +S2 GI/Abdominal exam: PRESENT: normal bowel sounds, soft. ABSENT: distended, guarding, tenderness Rectal exam: PRESENT: deferred Extremities exam: PRESENT: other - Decreased range of motion in the hands. Puja ent is somewhat rigid but unknown if this is active or passive. Musculoskeletal exam: ABSENT: normal inspection Neurological exam: PRESENT: alert, awake, oriented to person, oriented to situation Psychiatric exam: PRESENT: agitated, unusual affect Results Laboratory Results: 02/10/20 05:18 02/10/20 05:18 02/09/20 02/09/20 02/10/20 09:00 09:00 05:18 WBC 12.3 H RBC 3.98 Hgb 11.3 L Hct 34.0 L MCV 86 MCH 28.4 MCHC 33.2 RDW 15.0 H Plt Count 279 Seg Neutrophils % 77.2 Sodium Potassium Chloride Carbon Dioxide Anion Gap BUN Creatinine Est GFR ( Amer) Glucose Calcium Phosphorus Magnesium 2.1 TSH 2.21 02/10/20 05:18 WBC RBC Hgb Hct MCV MCH MCHC RDW Plt Count Seg Neutrophils % Sodium 140.3 Potassium 3.1 L Chloride 111 H Carbon Dioxide 24 Anion Gap 5 BUN 6 L Creatinine 0.64 Est GFR ( Amer) > 60 Glucose 118 H Calcium 8.8 Phosphorus 2.5 Magnesium 1.7 TSH 02/07/20 19:30 Catheterized Urine Urine Culture - Final NO GROWTH 2 DAYS 02/07/20 02/08/20 02/09/20 21:15 19:40 09:00 Creatine Kinase 605 H 706 H 1174 H Troponin I 02/09/20 02/09/20 02/09/20 09:00 17:00 23:10 Creatine Kinase Troponin I 0.245 0.155 0.143 02/10/20 05:18 Creatine Kinase 881 H Troponin I Impressions: Chest X-Ray 02/07/20 21:36 IMPRESSION: Nodular density in the right lung base and fullness in the right hilar region for which adenopathy is not excluded. Consider follow-up with dedicated CT copyright 2010 [employer] All Rights Reserved Assessment and Plan - Diagnosis (1) Rhabdomyolysis Qualifiers: Rhabdomyolysis type: non-traumatic Qualified Code(s): M62.82 - Rhabdomyolysis Is this a current diagnosis for this admission?: Yes Plan: CK initially 1200 on admission, trending IV fluids Renal function normal on admission, trend BMP Troponin elevated likely due to rhabdomyolysis, patient has no chest pain Psychiatric medications appropriately reconciled by psychiatrist here 02/10/2020 02/07/2020 CK 605 02/08/2020 CK 701 02/09/2020 CK 1174 02/10/2020 CK 881 CK trending down. We will continue IV fluids and recheck tomorrow. Patient complains of being achy all over. Could be related to rhabdo. (2) Elevated troponin Is this a current diagnosis for this admission?: Yes Plan: Likely due to rhabdomyolysis, patient denies chest pain Cardiology was called by ED and they wanted patient admitted for observation and trending troponins Patient denies history of cardiac disease 02/10/2020 Troponin trending down parallel to creatinine kinase. Continue to monitor. (3) Abnormal EKG Is this a current diagnosis for this admission?: Yes Plan: 02/10/2020 EKG yesterday at 11 AM showed some to inversion. Repeat at noon did not show this effect. We will continue to monitor. No complaints of chest pain. (4) Bipolar disorder Qualifiers: Active/Remission status: currently active Current bipolar episode type: depressed Current episode severity: severe Psychotic features: without psychotic features Qualified Code(s): F31.4 - Bipolar disorder, current episode depressed, severe, without psychotic features Is this a current diagnosis for this admission?: Yes Plan: Medication regimen per psychiatrist 02/10/2020 Propranolol, Cogentin and lithium. [place] is 600 mg twice daily. [place] lev el is at the upper limit normal. BUN and creatinine are normal at this time. We will continue to monitor. (5) Hypokalemia Is this a current diagnosis for this admission?: Yes Plan: 02/10/2020 Despite supplement potassium is still slightly low. She received more IV potassium with an oral supplement to be given daily. (6) Anxiety Is this a current diagnosis for this admission?: Yes Plan: Melatonin and as needed Ativan nightly as needed for sleep 02/10/2020 As above. (7) Expressive aphasia Is this a current diagnosis for this admission?: Yes Plan: Chronic, baseline due to prior CVA - Plan Summary Summary: Please disregard this note as it was mistakenly put in on the incorrect patient. Please delete/remove this note if possible. - Time Time Spent with patient: 15-24 minutes Medications reviewed and adjusted accordingly: Yes
[2020-02-10] MEDS ORDERED: METOPROLOL TARTRATE PF/INJ 5 MG/5 ML SDV IV PRN (10:40)
[2020-02-10] MEDS: POTASSIUM CHLORIDE 10 MEQ TABLET.ER PO SCH (11:04)
[2020-02-10] MEDS: DOCUSATE SODIUM 100 MG CAPSULE PO SCH (11:04)
[2020-02-10] MEDS: AMLODIPINE BESYLATE 5 MG TABLET PO SCH (11:04)
[2020-02-10] MEDS: FLUTICASONE/VILANTEROL 200-25 MCG/DOSE IH SCH (11:05)
[2020-02-10] MEDS: PROPRANOLOL HCL 40 MG TABLET PO SCH (11:10)
[2020-02-10] MEDS: BENZTROPINE MESYLATE 1 MG TABLET PO SCH (11:10)
[2020-02-10] MEDS: ENOXAPARIN SODIUM INJ 30 MG/0.3 ML DISP.SYRIN SUBCUT SCH (11:11)
--- NOTE | 2020-02-10 17:34 | EKG REPORT ---
SEVERITY:- ABNORMAL ECG - SINUS RHYTHM LEFT ANTERIOR FASCICULAR BLOCK NONSPECIFIC T ABNORMALITIES, DIFFUSE LEADS BORDERLINE PROLONGED QT INTERVAL : Confirmed by: Jania Barnes MD 10-Feb-2020 17:33:17
[2020-02-10] MEDS: LITHIUM CARBONATE 300 MG CAPSULE PO SCH (19:07)
--- NOTE | 2020-02-10 19:58 | ADVANCED CARE ---
- Diagnosis (1) Rhabdomyolysis Diagnosis Current: Yes (2) Elevated troponin Diagnosis Current: Yes (3) Medication adverse effect Diagnosis Current: Yes (4) Bipolar disorder Diagnosis Current: Yes (5) Expressive aphasia Diagnosis Current: Yes (6) Anxiety Diagnosis Current: Yes Attendance: Patient Resuscitation Status: Full Code Discussion: All aspects of code status discussed with patient/POA including cardioversion, chest compressions, and intubation and the patient/POA indicated they wish to be full MPOA is designated as: Daughter Time Spent: Over 17 minutes
[2020-02-10] MEDS: ASPIRIN 81 MG TABLET, ENT COATED PO SCH (22:38)
[2020-02-10] MEDS: MELATONIN 3 MG TABLET PO SCH (22:38)
[2020-02-10] MEDS: PROPRANOLOL HCL 20 MG TABLET PO SCH (22:42)
[2020-02-10 23:56] LABS: BLOOD UREA NITROGEN 4 mg/dL (7-20); CALCIUM 9.6 mg/dL (8.4-10.2); GLUCOSE 147 mg/dL (75-110); POTASSIUM 3.3 mmol/L (3.6-5.0)
[2020-02-11 00:01] LABS: CARBON DIOXIDE 25 mmol/L (22-30); CHLORIDE 123 mmol/L (98-107)
[2020-02-11 00:19] LABS: ANION GAP 3 (5-19)
[2020-02-11] MEDS: PROPRANOLOL HCL 20 MG TABLET PO SCH ×3 (05:50→22:01)
[2020-02-11] MEDS: PANTOPRAZOLE SODIUM 40 MG TABLET.DR PO SCH (05:50)
[2020-02-11 06:13] LABS: BLOOD UREA NITROGEN 4 mg/dL (7-20); CALCIUM 9.8 mg/dL (8.4-10.2); CARBON DIOXIDE 27 mmol/L (22-30); CHLORIDE 124 mmol/L (98-107); CREATINE KINASE 475 U/L (30-135); GLUCOSE 147 mg/dL (75-110); LITHIUM 0.8 mEq/L (0.6-1.2); POTASSIUM 3.6 mmol/L (3.6-5.0)
[2020-02-11 06:23] LABS: ANION GAP 3 (5-19)
[2020-02-11] MEDS: POTASSIUM CHLORIDE 10 MEQ TABLET.ER PO SCH (10:21)
[2020-02-11] MEDS: DOCUSATE SODIUM 100 MG CAPSULE PO SCH (10:21)
[2020-02-11] MEDS: AMLODIPINE BESYLATE 5 MG TABLET PO SCH (10:22)
[2020-02-11] MEDS: LITHIUM CARBONATE 300 MG CAPSULE PO SCH (10:22)
[2020-02-11] MEDS: BENZTROPINE MESYLATE 1 MG TABLET PO SCH (10:22)
[2020-02-11] MEDS: FLUTICASONE/VILANTEROL 200-25 MCG/DOSE IH SCH (10:22)
[2020-02-11] MEDS: MAGNESIUM OXIDE 400 MG TABLET PO SCH (10:22)
[2020-02-11] MEDS: ENOXAPARIN SODIUM INJ 30 MG/0.3 ML DISP.SYRIN SUBCUT SCH (10:23)
[2020-02-11] MEDS: DEXTROSE 5%-WATER 1000 ML 1,000 ML IV PRN (11:22)
[2020-02-11 13:23] LABS: BLOOD UREA NITROGEN 4 mg/dL (7-20); CALCIUM 9.8 mg/dL (8.4-10.2); GLUCOSE 130 mg/dL (75-110); POTASSIUM 3.6 mmol/L (3.6-5.0)
[2020-02-11 13:29] LABS: ANION GAP 5 (5-19); CARBON DIOXIDE 27 mmol/L (22-30); CHLORIDE 119 mmol/L (98-107)
--- NOTE | 2020-02-11 15:27 | PDOC PROGRESS REPORT ---
Subjective Progress Note for:: 02/11/20 Subjective:: 02/11/2020 Patient has diabetes insipidus due to lithium. I have stopped her lithium. I called Dr. Mcdonald to discuss this with her and she is in agreement with this plan. She recommended changing the patient to Depakote which I have done. I put the patient on D5W as her sodium has increased abruptly. We will keep her on her fluid restriction to avoid overcorrection too quickly. Patient is still craving excessive amounts of water and begging for more, however I went to great detail explaining the reason she cannot drink excess amounts of water and what the lithium is done to how her body handle salt and free water. Sodium today is spiked to 154.4 and CK is down to 475. [place] level was 0.8. Other than anxiety and craving water patient has no new complaints today. Reason For Visit: RHABDOMYOLYSIS HYPOKALEMIA BIPOLAR DISORDER Physical Exam Vital Signs: Temp Pulse Resp BP Pulse Ox 97.9 F 82 24 H 161/76 H 96 02/11/20 11:39 02/11/20 14:00 02/11/20 11:39 02/11/20 11:39 02/11/20 11:39 Intake & Output 02/10/20 02/11/20 02/12/20 06:59 06:59 06:59 Intake Total 83347 5096 1000 Output Total 4150 5650 Balance 7530 -554 1000 Weight 67.9 kg 68 kg General appearance: PRESENT: disheveled, well-developed, well-nourished Head exam: PRESENT: atraumatic, normocephalic Eye exam: PRESENT: conjunctiva pink Mouth exam: PRESENT: moist Respiratory exam: PRESENT: clear to auscultation k[place]yetta. ABSENT: rales, rhonchi, wheezes Cardiovascular exam: PRESENT: RRR. ABSENT: diastolic murmur, rubs, systolic murmur GI/Abdominal exam: PRESENT: normal bowel sounds, soft. ABSENT: distended, guarding, mass, organolmegaly, rebound, tenderness Neurological exam: PRESENT: alert, awake, oriented to person, oriented to place, oriented to time, oriented to situation Skin exam: PRESENT: dry, intact, warm Results Laboratory Results: 02/10/20 05:18 02/11/20 12:25 02/10/20 02/10/20 02/11/20 23:30 23:30 05:09 Sodium 150.9 H 154.4 H Potassium 3.3 L 3.6 Chloride 123 H 124 H Carbon Dioxide 25 27 Anion Gap 3 L 3 L BUN 4 L 4 L Creatinine 0.57 0.60 Est GFR ( Amer) > 60 > 60 Glucose 147 H 147 H Serum Osmolality Calcium 9.6 9.8 Magnesium 1.9 2.0 02/11/20 02/11/20 05:09 12:25 Sodium 151.3 H Potassium 3.6 Chloride 119 H Carbon Dioxide 27 Anion Gap 5 BUN 4 L Creatinine 0.65 Est GFR ( Amer) > 60 Glucose 130 H Serum Osmolality 323 H Calcium 9.8 Magnesium 02/07/20 02/08/20 02/09/20 21:15 19:40 09:00 Creatine Kinase 605 H 706 H 1174 H Troponin I 02/09/20 02/09/20 02/09/20 09:00 17:00 23:10 Creatine Kinase Troponin I 0.245 0.155 0.143 02/10/20 02/10/20 02/10/20 05:18 23:30 23:30 Creatine Kinase 881 H 613 H Troponin I 0.083 02/11/20 05:09 Creatine Kinase 475 H Troponin I Impressions: Chest X-Ray 02/07/20 21:36 IMPRESSION: Nodular density in the right lung base and fullness in the right hilar region for which adenopathy is not excluded. Consider follow-up with dedicated CT copyright 2010 [employer]- All Rights Reserved Assessment and Plan - Diagnosis (1) Rhabdomyolysis Qualifiers: Rhabdomyolysis type: non-traumatic Qualified Code(s): M62.82 - Rhabdomyolysis Is this a current diagnosis for this admission?: Yes Plan: CK initially 1200 on admission, trending IV fluids Renal function normal on admission, trend BMP Troponin elevated likely due to rhabdomyolysis, patient has no chest pain Psychiatric medications appropriately reconciled by psychiatrist here 02/10/2020 02/07/2020 CK 605 02/08/2020 CK 701 02/09/2020 CK 1174 02/10/2020 CK 881 CK trending down. We will continue IV fluids and recheck tomorrow. Patient complains of being achy all over. Could be related to rhabdo. CK down to 475, can stop trending now (2) Elevated troponin Is this a current diagnosis for this admission?: Yes (3) Medication adverse effect Qualifiers: Encounter type: initial encounter Qualified Code(s): T50.905A - Adverse effect of unspecified drugs, medicaments and biological substances, initial encounter Is this a current diagnosis for this admission?: Yes (4) Bipolar disorder Qualifiers: Active/Remission status: currently active Current bipolar episode type: depressed Current episode severity: severe Psychotic features: without psychotic features Qualified Code(s): F31.4 - Bipolar disorder, current e pisode depressed, severe, without psychotic features Is this a current diagnosis for this admission?: Yes (5) Expressive aphasia Is this a current diagnosis for this admission?: Yes (6) Anxiety Is this a current diagnosis for this admission?: Yes (7) Diabetes insipidus, nephrogenic Is this a current diagnosis for this admission?: Yes Plan: Due to lithium, this medication has been stopped and should not be restarted Discussed with psychiatry who is in agreement, requested patient be switched to Depakote which has been done (8) Hypernatremia Is this a current diagnosis for this admission?: Yes Plan: Due to resumption of lithium and diabetes insipidus D5W at slow rate, frequently trending BMP, normal lithium. - Plan Summary Summary: Please disregard this note as it was mistakenly put in on the incorrect patient. Please delete/remove this note if possible. - Time Time Spent with patient: 35 or more minutes Medications reviewed and adjusted accordingly: Yes - Inpatient Certification Based on my medical assessment, after consideration of the patient's comorbidities, presenting symptoms, or acuity I expect that the services needed warrant INPATIENT care.: Yes I certify that my determination is in accordance with my understanding of Medicare's requirements for reasonable and necessary INPATIENT services [42 CFR 412.3e].: Yes Medical Necessity: Significant Comorbidiites Make Outpatient Treatment Too Risky, Need Close Monitoring Due to Risk of Patient Decompensation, Need For IV Fluids, Risk of Complication if Not Cared For in Hospital, Risk of Diagnosis Which Will Require Inpatient Eval/Care/Monitoring
[2020-02-11] MEDS: DIVALPROEX SODIUM 250 MG TABLET.DR PO SCH (17:37)
[2020-02-11 20:08] LABS: ANION GAP 7 (5-19); BLOOD UREA NITROGEN 4 mg/dL (7-20); CALCIUM 9.8 mg/dL (8.4-10.2); CARBON DIOXIDE 27 mmol/L (22-30); CHLORIDE 117 mmol/L (98-107); GLUCOSE 163 mg/dL (75-110); POTASSIUM 3.4 mmol/L (3.6-5.0)
[2020-02-11] MEDS: ASPIRIN 81 MG TABLET, ENT COATED PO SCH (21:57)
[2020-02-11] MEDS: LORAZEPAM 0.5 MG TABLET PO PRN (21:57)
[2020-02-11] MEDS: MELATONIN 3 MG TABLET PO SCH (21:58)
[2020-02-12 02:50] LABS: BLOOD UREA NITROGEN 3 mg/dL (7-20); CALCIUM 9.9 mg/dL (8.4-10.2); CARBON DIOXIDE 29 mmol/L (22-30); GLUCOSE 178 mg/dL (75-110); POTASSIUM 3.2 mmol/L (3.6-5.0)
[2020-02-12 02:56] LABS: ANION GAP 5 (5-19); CHLORIDE 120 mmol/L (98-107)
[2020-02-12] MEDS: PANTOPRAZOLE SODIUM 40 MG TABLET.DR PO SCH (06:11)
[2020-02-12] MEDS: PROPRANOLOL HCL 20 MG TABLET PO SCH ×3 (06:11→22:02)
[2020-02-12] MEDS: DEXTROSE 5%-WATER 1000 ML 1,000 ML IV PRN (06:18)
[2020-02-12 07:27] LABS: BLOOD UREA NITROGEN 4 mg/dL (7-20); CALCIUM 9.8 mg/dL (8.4-10.2); CARBON DIOXIDE 30 mmol/L (22-30); CHLORIDE 121 mmol/L (98-107); GLUCOSE 155 mg/dL (75-110); POTASSIUM 3.4 mmol/L (3.6-5.0)
[2020-02-12 07:35] LABS: ANION GAP 3 (5-19)
[2020-02-12] MEDS ORDERED: HYDROCHLOROTHIAZIDE 12.5 MG TABLET PO ONE (09:30)
[2020-02-12] MEDS: MAGNESIUM OXIDE 400 MG TABLET PO SCH (10:17)
[2020-02-12] MEDS: POTASSIUM CHLORIDE 10 MEQ TABLET.ER PO SCH (10:17)
[2020-02-12] MEDS: BENZTROPINE MESYLATE 1 MG TABLET PO SCH (10:18)
[2020-02-12] MEDS: AMLODIPINE BESYLATE 5 MG TABLET PO SCH (10:18)
[2020-02-12] MEDS: DOCUSATE SODIUM 100 MG CAPSULE PO SCH (10:18)
[2020-02-12] MEDS: DIVALPROEX SODIUM 250 MG TABLET.DR PO SCH ×2 (10:18→17:11)
[2020-02-12] MEDS: ENOXAPARIN SODIUM INJ 30 MG/0.3 ML DISP.SYRIN SUBCUT SCH (10:19)
[2020-02-12] MEDS: FLUTICASONE/VILANTEROL 200-25 MCG/DOSE IH SCH (10:19)
--- NOTE | 2020-02-12 14:32 | PDOC PROGRESS REPORT ---
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 I have stopped her lithium. I called Dr. Mcdonald to discuss this with her and she is in agreement with this plan. She recommended changing the patient to Depakote which I have done. I put the patient on D5W as her sodium has increased abruptly. We will keep her on her fluid restriction to avoid overcorrection too quickly. Patient is still craving excessive amounts of water and begging for more, however I went to great detail explaining the reason she cannot drink excess amounts of water and what the lithium is done to how her body handle salt and free water. Sodium today is spiked to 154.4 and CK is down to 475. [place] level was 0.8. Other than anxiety and craving water patient has no new complaints today. 02/12/2020 Sodium is still elevated at 154 today. We will try 1 dose of thiazide diuretic to reverse the effect of the lithium causing nephrogenic diabetes insipidus. Upon evaluation later in the day, urine seems to be a bit more concentrated rather than the extremely dilute urine I saw yesterday. Continue D5W IV fluids. When sodium is corrected, I recommend patient go to an inpatient psychiatric facility or rehab facility that can accommodate the patient psychiatric needs. I discussed this with the bottle caser who will look into this and determine patient's needs. Reason For Visit: RHABDOMYOLYSIS HYPOKALEMIA BIPOLAR DISORDER Physical Exam Vital Signs: Temp Pulse Resp BP Pulse Ox 98.1 F 80 16 129/52 H 100 02/12/20 12:26 02/12/20 12:26 02/12/20 12:26 02/12/20 12:26 02/12/20 12:26 Intake & Output 02/11/20 02/12/20 02/13/20 06:59 06:59 06:59 Intake Total 5096 0716 1020 Output Total 5650 3425 350 Balance -554 1131 670 Weight 68 kg 68 kg General appearance: PRESENT: no acute distress, well-developed, well-nourished Head exam: PRESENT: atraumatic, normocephalic Eye exam: PRESENT: conjunctiva pink Mouth exam: PRESENT: moist Respiratory exam: PRESENT: clear to auscultation k[place]. ABSENT: rales, rhonchi, wheezes Cardiovascular exam: PRESENT: RRR. ABSENT: diastolic murmur, rubs, systolic murmur GI/Abdominal exam: PRESENT: normal bowel sounds, soft. ABSENT: distended, guarding, mass, organolmegaly, rebound, tenderness Extremities exam: ABSENT: pedal edema Neurological exam: PRESENT: alert, awake, oriented to person Psychiatric exam: PRESENT: anxious Skin exam: PRESENT: dry, intact, warm Results Laboratory Results: 02/10/20 05:18 02/12/20 06:44 02/11/20 02/11/20 02/12/20 14:37 19:03 00:56 Sodium 150.5 H Cancelled Potassium 3.4 L Cancelled Chloride 117 H Cancelled Carbon Dioxide 27 Cancelled Anion Gap 7 Cancelled BUN 4 L Cancelled Creatinine 0.66 Cancelled Est GFR ( Amer) > 60 Cancelled Est GFR (Non-Af Amer) Cancelled Glucose 163 H Cancelled Calcium 9.8 Cancelled Urine Osmolality 156 L 02/12/20 02/12/20 01:50 06:44 Sodium 154.4 H 154.3 H Potassium 3.2 L 3.4 L Chloride 120 H 121 H Carbon Dioxide 29 30 Anion Gap 5 3 L BUN 3 L 4 L Creatinine 0.62 0.71 Est GFR ( Amer) > 60 > 60 Est GFR (Non-Af Amer) Glucose 178 H 155 H Calcium 9.9 9.8 Urine Osmolality 02/07/20 02/08/20 02/09/20 21:15 19:40 09:00 Creatine Kinase 605 H 706 H 1174 H Troponin I 02/09/20 02/09/20 02/09/20 09:00 17:00 23:10 Creatine Kinase Troponin I 0.245 0.155 0.143 02/10/20 02/10/20 02/10/20 05:18 23:30 23:30 Creatine Kinase 881 H 613 H Troponin I 0.083 02/11/20 05:09 Creatine Kinase 475 H Troponin I Impressions: Chest X-Ray 02/07/20 21:36 IMPRESSION: Nodular density in the right lung base and fullness in the right hilar region for which adenopathy is not excluded. Consider follow-up with dedicated CT copyright 2010 [employer]- All Rights Reserved Assessment and Plan - Diagnosis (1) Rhabdomyolysis Qualifiers: Rhabdomyolysis type: non-traumatic Qualified Code(s): M62.82 - Rhabdomyolysis Is this a current diagnosis for this admission?: Yes Plan: CK initially 1200 on admission, trending IV fluids Renal function normal on admission, trend BMP Troponin elevated likely due to rhabdomyolysis, patient has no chest pain Psychiatric medications appropriately reconciled by psychiatrist here 02/10/2020 02/07/2020 CK 605 02/08/2020 CK 701 02/09/2020 CK 1174 02/10/2020 CK 881 CK trending down. We will continue IV fluids and recheck tomorrow. Patient complains of being achy all over. Could be related to rhabdo. CK down to 475, can stop trending now Resolved (2) Elevated troponin Is this a current diagnosis for this admission?: Yes (3) Medication adverse effect Qualifiers: Encounter type: initial encounter Qualified Code(s): T50.905A - Adverse effect of unspecified drugs, medicaments and biological substances, initial encounter Is this a current diagnosis for this admission?: Yes (4) Bipolar disorder Qualifiers: Active/Remission status: currently active Current bipolar episode type: depressed Current episode severity: severe Psychotic features: without psychotic features Qualified Code(s): F31.4 - Bipolar disorder, current episode depressed, severe, without psychotic features Is this a current diagnosis for this admission?: Yes Plan: Medication regimen per psychiatrist 02/10/2020 Propranolol, Cogentin and lithium. [place] is 600 mg twice daily. [place] level is at the upper limit normal. BUN and creatinine are normal at this time. We will continue to monitor. 02/11/2022 May benefit from inpatient psychiatry disposition at discharge from here versus SNF can accommodate her psychiatric needs (5) Expressive aphasia Is this a current diagnosis for this admission?: Yes (6) Anxiety Is this a current diagnosis for this admission?: Yes (7) Diabetes insipidus, nephrogenic Is this a current diagnosis for this admission?: Yes Plan: Due to lithium, this medication has been stopped and should not be restarted Discussed with psychiatry who is in agreement, requested patient be switched to Depakote which has been done 02/12/2020 Sodium still high and patient still having excessive thirst however she states this is gradually improving Urine seems to be a bit more concentrated today Added 1 dose of hydrochlorothiazide to help with sodium excretion Continue D5W (8) Hypernatremia Is this a current diagnosis for this admission?: Yes - Plan Summary Summary: Please disregard this note as it was mistakenly put in on the incorrect patient. Please delete/remove this note if possible. - Time Time Spent with patient: 25-34 minutes Medications reviewed and adjusted accordingly: Yes - Inpatient Certification Based on my medical assessment, after consideration of the patient's comorbidities, presenting symptoms, or acuity I expect that the services needed warrant INPATIENT care.: Yes I certify that my determination is in accordance with my understanding of Medicare's requirements for reasonable and necessary INPATIENT services [42 CFR 412.3e].: Yes Medical Necessity: Significant Comorbidiites Make Outpatient Treatment Too Risk y, Need Close Monitoring Due to Risk of Patient Decompensation, Need For IV Fluids, Risk of Complication if Not Cared For in Hospital, Risk of Diagnosis Which Will Require Inpatient Eval/Care/Monitoring
[2020-02-12 15:11] LABS: ANION GAP 7 (5-19); BLOOD UREA NITROGEN 5 mg/dL (7-20); CALCIUM 9.4 mg/dL (8.4-10.2); CARBON DIOXIDE 28 mmol/L (22-30); CHLORIDE 115 mmol/L (98-107); GLUCOSE 128 mg/dL (75-110); POTASSIUM 3.3 mmol/L (3.6-5.0)
[2020-02-12] MEDS: ASPIRIN 81 MG TABLET, ENT COATED PO SCH (22:02)
[2020-02-12] MEDS: MELATONIN 3 MG TABLET PO SCH (22:02)
[2020-02-13] MEDS: DEXTROSE 5%-WATER 1000 ML 1,000 ML IV PRN ×2 (00:24→14:45)
[2020-02-13] MEDS: PANTOPRAZOLE SODIUM 40 MG TABLET.DR PO SCH (05:45)
[2020-02-13] MEDS: PROPRANOLOL HCL 20 MG TABLET PO SCH ×3 (05:45→21:38)
[2020-02-13] MEDS: FLUTICASONE/VILANTEROL 200-25 MCG/DOSE IH SCH (09:57)
[2020-02-13] MEDS: AMLODIPINE BESYLATE 5 MG TABLET PO SCH (09:57)
[2020-02-13] MEDS: ENOXAPARIN SODIUM INJ 30 MG/0.3 ML DISP.SYRIN SUBCUT SCH (10:00)
[2020-02-13] MEDS: MAGNESIUM OXIDE 400 MG TABLET PO SCH (10:01)
[2020-02-13] MEDS: DIVALPROEX SODIUM 250 MG TABLET.DR PO SCH ×2 (10:01→17:52)
[2020-02-13] MEDS: DOCUSATE SODIUM 100 MG CAPSULE PO SCH (10:01)
[2020-02-13] MEDS: POTASSIUM CHLORIDE 10 MEQ TABLET.ER PO SCH (10:01)
[2020-02-13] MEDS: BENZTROPINE MESYLATE 1 MG TABLET PO SCH (10:01)
[2020-02-13 13:17] LABS: ANION GAP 9 (5-19); BLOOD UREA NITROGEN 8 mg/dL (7-20); CALCIUM 8.6 mg/dL (8.4-10.2); CARBON DIOXIDE 26 mmol/L (22-30); CHLORIDE 107 mmol/L (98-107); GLUCOSE 189 mg/dL (75-110); POTASSIUM 3.3 mmol/L (3.6-5.0)
--- NOTE | 2020-02-13 19:11 | PDOC PROGRESS REPORT ---
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 I have stopped her lithium. I called Dr. Mcdonald to discuss this with her and she is in agreement with this plan. She recommended changing the patient to Depakote which I have done. I put the patient on D5W as her sodium has increased abruptly. We will keep her on her fluid restriction to avoid overcorrection too quickly. Patient is still craving excessive amounts of water and begging for more, however I went to great detail explaining the reason she cannot drink excess amounts of water and what the lithium is done to how her body handle salt and free water. Sodium today is spiked to 154.4 and CK is down to 475. [place] level was 0.8. Other than anxiety and craving water patient has no new complaints today. 02/12/2020 Sodium is still elevated at 154 today. We will try 1 dose of thiazide diuretic to reverse the effect of the lithium causing nephrogenic diabetes insipidus. Upon evaluation later in the day, urine seems to be a bit more concentrated rather than the extremely dilute urine I saw yesterday. Continue D5W IV fluids. When sodium is corrected, I recommend patient go to an inpatient psychiatric facility or rehab facility that can accommodate the patient psychiatric needs. I discussed this with the behavioral health case manager who will look into this and determine patient's needs. 02/13/2020 Potassium is a bit low and sodium is notably improved today. Urine still appears somewhat dilute. She may benefit from additional dose of thiazide but we can hold off on this for now. She still craving water but states that this is becoming less and less. She is working with physical therapy and seems to be doing well. She may not be a candidate for SNF. She may benefit from a stay at an inpatient psychiatric facility to have her water intake and response to psychiatric meds monitored closely. I discussed this with case management and they are looking into this. Patient has no new complaints today seems to be rather calm. Reason For Visit: RHABDOMYOLYSIS HYPOKALEMIA BIPOLAR DISORDER Physical Exam Vital Signs: Temp Pulse Resp BP Pulse Ox 98 F 76 17 120/80 98 02/13/20 17:47 02/13/20 17:47 02/13/20 17:47 02/13/20 17:47 02/13/20 17:47 Intake & Output 0702/13/20 02/14/20 06:59 06:59 06:59 Intake Total 4556 2700 1000 Output Total 3425 1150 Balance 1131 1550 1000 Weight 68 kg 67.8 kg General appearance: PRESENT: no acute distress, well-developed, well-nourished Head exam: PRESENT: atraumatic, normocephalic Eye exam: PRESENT: conjunctiva pink Mouth exam: PRESENT: moist Respiratory exam: PRESENT: clear to auscultation [place]. ABSENT: rales, rhonchi, wheezes Cardiovascular exam: PRESENT: RRR. ABSENT: diastolic murmur, rubs, systolic murmur GI/Abdominal exam: PRESENT: normal bowel sounds, soft. ABSENT: distended, guarding, mass, organolmegaly, rebound, tenderness Neurological exam: PRESENT: alert, awake, oriented to person Psychiatric exam: PRESENT: appropriate affect Skin exam: PRESENT: dry, intact, warm Results Laboratory Results: 02/10/20 05:18 02/13/20 11:53 02/13/20 11:53 Sodium 141.6 Potassium 3.3 L Chloride 107 Carbon Dioxide 26 Anion Gap 9 BUN 8 Creatinine 0.72 Est GFR ( Amer) > 60 Glucose 189 H Calcium 8.6 02/07/20 02/08/20 02/09/20 21:15 19:40 09:00 Creatine Kinase 605 H 706 H 1174 H Troponin I 02/09/20 02/09/20 02/09/20 09:00 17:00 23:10 Creatine Kinase Troponin I 0.245 0.155 0.143 02/10/20 02/10/20 02/10/20 05:18 23:30 23:30 Creatine Kinase 881 H 613 H Troponin I 0.083 02/11/20 05:09 Creatine Kinase 475 H Troponin I Impressions: Chest X-Ray 02/07/20 21:36 IMPRESSION: Nodular density in the right lung base and fullness in the right hilar region for which adenopathy is not excluded. Consider follow-up with dedicated CT copyright 2010 [employer]- All Rights Reserved Assessment and Plan - Diagnosis (1) Rhabdomyolysis Qualifiers: Rhabdomyolysis type: non-traumatic Qualified Code(s): M62.82 - Rhabdomyo lysis Is this a current diagnosis for this admission?: Yes (2) Elevated troponin Is this a current diagnosis for this admission?: Yes (3) Medication adverse effect Qualifiers: Encounter type: initial encounter Qualified Code(s): T50.905A - Adverse effect of unspecified drugs, medicaments and biological substances, initial encounter Is this a current diagnosis for this admission?: Yes (4) Bipolar disorder Qualifiers: Active/Remission status: currently active Current bipolar episode type: depressed Current episode severity: severe Psychotic features: without psychotic features Qualified Code(s): F31.4 - Bipolar disorder, current episode depressed, severe, without psychotic features Is this a current diagnosis for this admission?: Yes (5) Expressive aphasia Is this a current diagnosis for this admission?: Yes (6) Anxiety Is this a current diagnosis for this admission?: Yes (7) Diabetes insipidus, nephrogenic Is this a current diagnosis for this admission?: Yes Plan: Due to lithium, this medication has been stopped and should not be restarted Discussed with psychiatry who is in agreement, requested patient be switched to Depakote which has been done 02/12/2020 Sodium still high and patient still having excessive thirst however she states this is gradually improving Urine seems to be a bit more concentrated today Added 1 dose of hydrochlorothiazide to help with sodium excretion Continue D5W 02/13/2020 Sodium finally coming down towards normal, urine still looks a bit dilute but not as bad as before Can consider giving additional dose of thiazide if sodium meds in the wrong direction and urine becomes more dilute like before Would benefit from inpatient psych monitoring to ensure she does not drink excessive amounts of free water (8) Hypernatremia Is this a current diagnosis for this admission?: Yes - Plan Summary Summary: Please disregard this note as it was mistakenly put in on the incorrect patient. Please delete/remove this note if possible. - Time Time Spent with patient: 25-34 minutes Within: within 48 hours - Inpatient Certification Based on my medical assessment, after consideration of the patient's comorbidities, presenting symptoms, or acuity I expect that the services needed warrant INPATIENT care.: Yes I certify that my determination is in accordance with my understanding of Medicare's requirements for reasonable and necessary INPATIENT services [42 CFR 412.3e].: Yes Medical Necessity: Significant Comorbidiites Make Outpatient Treatment Too Risky, Need Close Monitoring Due to Risk of Patient Decompensation, Risk of Complication if Not Cared For in Hospital, Risk of Diagnosis Which Will Require Inpatient Eval/Care/Monitoring
[2020-02-13] MEDS: ASPIRIN 81 MG TABLET, ENT COATED PO SCH (21:38)
[2020-02-13] MEDS: MELATONIN 3 MG TABLET PO SCH (21:38)
[2020-02-14] MEDS: PANTOPRAZOLE SODIUM 40 MG TABLET.DR PO SCH (05:37)
[2020-02-14] MEDS: PROPRANOLOL HCL 20 MG TABLET PO SCH ×3 (05:38→21:09)
[2020-02-14 06:16] LABS: ANION GAP 8 (5-19); BLOOD UREA NITROGEN 8 mg/dL (7-20); CALCIUM 8.2 mg/dL (8.4-10.2); CARBON DIOXIDE 25 mmol/L (22-30); CHLORIDE 109 mmol/L (98-107); GLUCOSE 143 mg/dL (75-110); POTASSIUM 3.2 mmol/L (3.6-5.0)
[2020-02-14] MEDS: BENZTROPINE MESYLATE 1 MG TABLET PO SCH (09:13)
[2020-02-14] MEDS: POTASSIUM CHLORIDE 10 MEQ TABLET.ER PO SCH (09:13)
[2020-02-14] MEDS: MAGNESIUM OXIDE 400 MG TABLET PO SCH (09:13)
[2020-02-14] MEDS: ENOXAPARIN SODIUM INJ 30 MG/0.3 ML DISP.SYRIN SUBCUT SCH (09:13)
[2020-02-14] MEDS: AMLODIPINE BESYLATE 5 MG TABLET PO SCH (09:13)
[2020-02-14] MEDS: FLUTICASONE/VILANTEROL 200-25 MCG/DOSE IH SCH (09:13)
[2020-02-14] MEDS: DIVALPROEX SODIUM 250 MG TABLET.DR PO SCH ×2 (09:13→17:02)
[2020-02-14] MEDS: POTASSI CL 20 MEQ/50 ML RIDER 20 MEQ/50 ML RTUPB IV SCH ×3 (09:14→13:02)
[2020-02-14] MEDS: DEXTROSE 5%-WATER 1000 ML 1,000 ML IV PRN (09:18)
[2020-02-14] MEDS: ACETAMINOPHEN 325 MG TABLET PO PRN ×2 (10:15→17:02)
--- NOTE | 2020-02-14 14:23 | PDOC PROGRESS REPORT ---
Subjective Progress Note for:: 02/14/20 Subjective:: Patient c/o thirst today. Otherwise feels well. Reason For Visit: RHABDOMYOLYSIS HYPOKALEMIA BIPOLAR DISORDER Physical Exam Vital Signs: Temp Pulse Resp BP Pulse Ox 97.8 F 74 18 96/46 L 97 02/14/20 11:50 02/14/20 11:50 02/14/20 11:50 02/14/20 11:50 02/14/20 11:50 Intake & Output 02/13/20 02/14/20 02/15/20 06:59 06:59 06:59 Intake Total 2700 2300 1484 Output Total 1150 Balance 1550 2300 1484 Weight 67.8 kg 67.8 kg General appearance: PRESENT: no acute distress, cooperative Neck exam: ABSENT: JVD Respiratory exam: PRESENT: symmetrical, unlabored. ABSENT: accessory muscle use, retraction, tachypnea, wheezes Cardiovascular exam: PRESENT: RRR, +S1, +S2. ABSENT: tachycardia Neurological exam: PRESENT: alert, awake Psychiatric exam: ABSENT: agitated, anxious Results Laboratory Results: 02/10/20 05:18 02/14/20 05:00 02/14/20 05:00 Sodium 141.6 Potassium 3.2 L Chloride 109 H Carbon Dioxide 25 Anion Gap 8 BUN 8 Creatinine 0.72 Est GFR ( Amer) > 60 Glucose 143 H Calcium 8.2 L 02/07/20 02/08/20 02/09/20 21:15 19:40 09:00 Creatine Kinase 605 H 706 H 1174 H Troponin I 02/09/20 02/09/20 02/09/20 09:00 17:00 23:10 Creatine Kinase Troponin I 0.245 0.155 0.143 02/10/20 02/10/20 02/10/20 05:18 23:30 23:30 Creatine Kinase 881 H 613 H Troponin I 0.083 02/11/20 05:09 Creatine Kinase 475 H Troponin I Impressions: Chest X-Ray 02/07/20 21:36 IMPRESSION: Nodular density in the right lung base and fullness in the right hilar region for which adenopathy is not excluded. Consider follow-up with dedicated CT copyright 2010 [employer]- All Rights Reserved Assessment and Plan - Diagnosis (1) Diabetes insipidus, nephrogenic Is this a current diagnosis for this admission?: Yes Plan: Patient is thought to have nephrogenic diabetes insipidus secondary to lithium use. [place] is currently on hold. Patient is receiving D5W and hyponatremia seems to have stayed resolved on this I am uncertain how long the effect of lithium would linger on but I will reduce rate of D5W and see what her sodium does. Continue to monitor BMP (2) Medication adverse effect Qualifiers: Encounter type: initial encounter Qualified Code(s): T50.905A - Adverse effect of unspecified drugs, medicaments and biological substances, initial encounter Is this a current diagnosis for this admission?: Yes (3) Rhabdomyolysis Qualifiers: Rhabdomyolysis type: non-traumatic Qualified Code(s): M62.82 - Rhabdomyolysis Is this a current diagnosis for this admission?: Yes Plan: Very much resolved at this point. Last time CK was checked it was in the 400s. (4) Bipolar disorder Qualifiers: Active/Remission status: currently active Current bipolar episode type: dep ressed Current episode severity: severe Psychotic features: without psychotic features Qualified Code(s): F31.4 - Bipolar disorder, current episode depressed, severe, without psychotic features Is this a current diagnosis for this admission?: Yes Plan: Continue Cogentin, divalproex as recommended by psychiatry. (5) Anxiety Is this a current diagnosis for this admission?: Yes Plan: Ativan as needed at nighttime (6) Hypokalemia Is this a current diagnosis for this admission?: Yes Plan: Replete with IV and p.o. supplements - Time Time Spent with patient: Less than 15 minutes
[2020-02-14] MEDS ORDERED: DEXTROSE 5%-WATER 1000 ML 1,000 ML IV PRN (19:36)
[2020-02-14] MEDS: ASPIRIN 81 MG TABLET, ENT COATED PO SCH (21:09)
[2020-02-14] MEDS: MELATONIN 3 MG TABLET PO SCH (21:09)
[2020-02-15] MEDS: PROPRANOLOL HCL 20 MG TABLET PO SCH ×3 (06:34→22:00)
[2020-02-15] MEDS: PANTOPRAZOLE SODIUM 40 MG TABLET.DR PO SCH (06:35)
[2020-02-15 07:26] LABS: ANION GAP 6 (5-19); BLOOD UREA NITROGEN 5 mg/dL (7-20); CARBON DIOXIDE 26 mmol/L (22-30); CHLORIDE 116 mmol/L (98-107); GLUCOSE 114 mg/dL (75-110); POTASSIUM 4.2 mmol/L (3.6-5.0)
[2020-02-15] MEDS: DIVALPROEX SODIUM 250 MG TABLET.DR PO SCH ×2 (09:40→17:40)
[2020-02-15] MEDS: BENZTROPINE MESYLATE 1 MG TABLET PO SCH (09:40)
[2020-02-15] MEDS: POTASSIUM CHLORIDE 10 MEQ TABLET.ER PO SCH (09:40)
[2020-02-15] MEDS: MAGNESIUM OXIDE 400 MG TABLET PO SCH (09:40)
[2020-02-15] MEDS: AMLODIPINE BESYLATE 5 MG TABLET PO SCH (09:41)
[2020-02-15] MEDS: ENOXAPARIN SODIUM INJ 30 MG/0.3 ML DISP.SYRIN SUBCUT SCH (09:41)
[2020-02-15] MEDS: FLUTICASONE/VILANTEROL 200-25 MCG/DOSE IH SCH (09:41)
[2020-02-15] MEDS: FLUTICASONE NASAL SPRAY 50 MCG/SPRY 120 SPRAY/16 GM NASL SCH ×2 (10:21→17:40)
[2020-02-15] MEDS: ACETAMINOPHEN 325 MG TABLET PO PRN ×2 (12:47→21:53)
[2020-02-15 13:06] LABS: ANION GAP 7 (5-19); BLOOD UREA NITROGEN 4 mg/dL (7-20); CALCIUM 8.3 mg/dL (8.4-10.2); CARBON DIOXIDE 25 mmol/L (22-30); CHLORIDE 107 mmol/L (98-107); GLUCOSE 102 mg/dL (75-110); POTASSIUM 4.2 mmol/L (3.6-5.0)
--- NOTE | 2020-02-15 17:06 | PDOC PROGRESS REPORT ---
Subjective Progress Note for:: 02/15/20 Subjective:: Patient still having polydipsia. Denies fever or chills. Denies any abdominal pain. States that she has been on lithium for 7 years. Reason For Visit: RHABDOMYOLYSIS HYPOKALEMIA BIPOLAR DISORDER Physical Exam Vital Signs: Temp Pulse Resp BP Pulse Ox 98.3 F 75 18 110/50 L 98 02/15/20 11:12 02/15/20 11:12 02/15/20 11:12 02/15/20 11:12 02/15/20 11:12 Intake & Output 02/14/20 02/15/20 02/16/20 06:59 06:59 06:59 Intake Total 2300 1774 1867 Balance 2300 1774 1867 Weight 67.8 kg 67.8 kg General appearance: PRESENT: no acute distress, cooperative Neck exam: ABSENT: JVD Respiratory exam: PRESENT: clear to auscultation [place], unlabored. ABSENT: tachypnea, wheezes Cardiovascular exam: PRESENT: RRR, +S1, +S2. ABSENT: tachycardia GI/Abdominal exam: PRESENT: normal bowel sounds, soft. ABSENT: rebound, rigid, tenderness Neurological exam: PRESENT: alert, awake, oriented to person, oriented to place, oriented to time Results Laboratory Results: 02/10/20 05:18 02/15/20 12:14 02/15/20 02/15/20 06:41 12:14 Sodium 148.0 H 138.6 Potassium 4.2 4.2 Chloride 116 H 107 Carbon Dioxide 26 25 Anion Gap 6 7 BUN 5 L 4 L Creatinine 0.58 0.62 Est GFR ( Amer) > 60 > 60 Glucose 114 H 102 Calcium 9.0 8.3 L Magnesium 2.3 02/07/20 02/08/20 02/09/20 21:15 19:40 09:00 Creatine Kinase 605 H 706 H 1174 H Troponin I 02/09/20 02/09/20 02/09/20 09:00 17:00 23:10 Creatine Kinase Troponin I 0.245 0.155 0.143 02/10/20 02/10/20 02/10/20 05:18 23:30 23:30 Creatine Kinase 881 H 613 H Troponin I 0.083 02/11/20 05:09 Creatine Kinase 475 H Troponin I Impressions: Chest X-Ray 02/07/20 21:36 IMPRESSION: Nodular density in the right lung base and fullness in the right hilar region for which adenopathy is not excluded. Consider follow-up with dedicated CT copyright 2011 [employer]- All Rights Reserved Assessment and Plan - Diagnosis (1) Diabetes insipidus, nephrogenic Is this a current diagnosis for this admission?: Yes Plan: Patient very likely has nephrogenic diabetes insipidus secondary to long-term lithium use. [place] is currently discontinued I discontinue patient's IV fluid infusion yesterday afternoon and this morning, patient sodium is 148. However patient does not have adipsia and her thirst faculties are intact. I will keep patient off IV fluids and stop her 3L fluid restriction and allow patient to guide her water intake by her thirst alone. Patient's thirst faculty may be sufficient to keep her hypernatremia at bay. I have discussed with patient that if excessive thirst become so much of a problem for her, we can consider adding a thiazide but as of now we will let her test faculties do the job in handling her hypernatremia. Repeat BMP this afternoon shows normalization of sodium levels (2) Rhabdomyolysis Qualifiers: Rhabdomyolysis type: non-traumatic Qualified Code(s): M62.82 - Rhabdomyolysis Is this a current diagnosis for this admission?: Yes Plan: Very much resolved at this point. Last time CK was checked it was in the 400s. (3) Bipolar disorder Qualifiers: Active/Remission status: currently active Current bipolar episode type: depressed Current episode severity: severe Psychotic features: without psychotic features Qualified Code(s): F31.4 - Bipolar disorder, current episode depressed, severe, without psychotic features Is this a current diagnosis for this admission?: Yes Plan: Continue Cogentin, divalproex as recommended by psychiatry. (4) Anxiety Is this a current diagnosis for this admission?: Yes Plan: Ativan as needed at nighttime (5) Hypokalemia Is this a current diagnosis for this admission?: Yes Plan: Likely secondary to lithium adverse effect. Replete with IV and p.o. supplements. Monitor BMP closely. Check magnesium level. (6) Adverse effect of lithium Is this a current diagnosis for this admission?: Yes Plan: Return discontinued due to lithium-induced hypokalemia and nephrogenic DI. - Time Time Spent with patient: Less than 15 minutes
[2020-02-15] MEDS: LORAZEPAM 0.5 MG TABLET PO PRN (21:52)
[2020-02-15] MEDS: ASPIRIN 81 MG TABLET, ENT COATED PO SCH (21:52)
[2020-02-15] MEDS: MELATONIN 3 MG TABLET PO SCH (21:52)
[2020-02-16] MEDS: PANTOPRAZOLE SODIUM 40 MG TABLET.DR PO SCH (05:54)
[2020-02-16] MEDS: PROPRANOLOL HCL 20 MG TABLET PO SCH ×3 (05:55→21:22)
[2020-02-16 07:06] LABS: ANION GAP 5 (5-19); BLOOD UREA NITROGEN 6 mg/dL (7-20); CALCIUM 8.3 mg/dL (8.4-10.2); CARBON DIOXIDE 25 mmol/L (22-30); CHLORIDE 110 mmol/L (98-107); GLUCOSE 105 mg/dL (75-110)
[2020-02-16] MEDS: ENOXAPARIN SODIUM INJ 30 MG/0.3 ML DISP.SYRIN SUBCUT SCH (09:14)
[2020-02-16] MEDS: DIVALPROEX SODIUM 250 MG TABLET.DR PO SCH ×2 (09:14→17:50)
[2020-02-16] MEDS: MAGNESIUM OXIDE 400 MG TABLET PO SCH (09:14)
[2020-02-16] MEDS: FLUTICASONE NASAL SPRAY 50 MCG/SPRY 120 SPRAY/16 GM NASL SCH ×2 (09:14→17:50)
[2020-02-16] MEDS: AMLODIPINE BESYLATE 5 MG TABLET PO SCH (09:14)
[2020-02-16] MEDS: BENZTROPINE MESYLATE 1 MG TABLET PO SCH (09:14)
[2020-02-16] MEDS: FLUTICASONE/VILANTEROL 200-25 MCG/DOSE IH SCH (09:14)
--- NOTE | 2020-02-16 11:03 | PDOC CONSULTATION ---
Consultation-[place] Consultation: 02.11.2020 11:00 am Phone Conversation with attending Physician regarding medication. Spoke with Dr. Ruiz regarding Patient current status and psychiatric medications. He indicated the Patient's sodium levels have continued to be problematic secondary to prescribed [place]. He has stopped the [place] and is looking for a safer alternative that will appropriately address her mental health concerns and minimal negative impact on her sodium levels. As such, [facility] consulting psychiatrist recommended continued discontinuation of lithium and the addition of Depakote 250 mg twice per day, continued Ativan as needed. Thank you for reaching out to the behavioral health team for input on this case. If there are any further questions regarding this patient, please contact the behavioral health office at [phone].
--- NOTE | 2020-02-16 11:25 | PDOC CONSULTATION ---
Consultation-Blank Consultation: 02.16.2020 11:10 am Behavioral Health Team was contacted by attending Physician, Dr. Burkett regarding Patient disposition from psychiatry and recommendations on discharge medications. Review of Patient chart indicates the Patient is improved following the discontinuation of the [place] and addition of the Depakote. She reportedly continues to report she is thirsty, but this is slightly improved as well. Patient was initially placed on petition while in the ED secondary to concerns that Patient's presentation was a result of her mental health concerns. However, after evaluation, it was determined her complaints were medical in nature not psychiatric and the petition was rescinded. Patient's medical condition declined 24 hours after presenting to the ED and she was admitted to the medical floors. Psychiatry was not officially consulted secondary to her condition being medical in nature, however, the attending physician did reach out regarding medication recommendations mid week. Following review of Patient's medical chart to include current medications and current labs, psychiatry recommends the following medications for discharge: 1. Maintain Depakote Ec [address] twice per day 2. Discontinue Cogentin 1 mg daily 3. Discontinue Lorazepam 0.25 mg as needed Patient is cleared from acute psychiatric services and recommended to follow up with her outpatient provider and advise her provider of her change in medication and the problems she had with the [place]. Thank you again for consulting with Psychiatry in the care and treatment of this Patient. If you have any further questions regarding this Patient, please contact the behavioral health office at [phone].
--- NOTE | 2020-02-16 11:43 | PDOC DISCHARGE SUMMARY ---
Impression - Admit/DC Date/PCP Admission Date/Primary Care Provider: 02/12/20 13:52 FADI ESCOBAR PA-C Discharge Date: 02/16/20 - Discharge Diagnosis (1) Diabetes insipidus, nephrogenic Is this a current diagnosis for this admission?: Yes (2) Hypernatremia Is this a current diagnosis for this admission?: Yes (3) Rhabdomyolysis Is this a current diagnosis for this admission?: Yes (4) Bipolar disorder Is this a current diagnosis for this admission?: Yes (5) Anxiety Is this a current diagnosis for this admission?: Yes (6) Hypokalemia Is this a current diagnosis for this admission?: Yes (7) Adverse effect of lithium Is this a current diagnosis for this admission?: Yes (8) Muscle contracture Is this a current diagnosis for this admission?: Yes - Additional Information Resuscitation Status: Full Code Discharge Diet: As Tolerated Discharge Activity: Activity As Tolerated Referrals: GLEN DENT MD [NO LOCAL MD] - (F/U 7-10 DAYS) FADI ESCOBAR PA-C [Primary Care Provider] - (F/U 1 WEEK) Prescriptions: Divalproex Sodium [Depakote Er 250 Mg Tablet] 250 mg PO Q12 #60 tab.sr.24h Aspirin [Ecotrin 81 mg EC Tablet] 81 mg PO QHS #30 tabec Fluticasone Propionate [Flonase Nasal [place] 50 Mcg/[place] 16 gm] 1 spray NASL BID #1 spray.pump Propranolol HCl [Inderal 20 mg Tablet] 20 mg PO Q8 #90 tablet Home Medications: Omeprazole 40 mg PO DAILY 07/06/15 Simvastatin 20 mg PO QHS 03/06/17 Zolpidem Tartrate [Ambien] 10 mg PO QHS 03/06/17 Fluticasone Propion/Salmeterol [[place] 250-50 Inhub] 1 each IH BID 01/10/20 Tizanidine HCl [Zanaflex 4 mg Tablet] 4 mg PO Q8HP PRN 01/10/20 Amlodipine Besylate [Norvasc 5 mg Tablet] 5 mg PO DAILY 02/09/20 Aspirin [Ecotrin 81 mg EC Tablet] 81 mg PO QHS #30 tabec 02/16/20 Divalproex Sodium [Depakote Er 250 Mg Tablet] 250 mg PO Q12 #60 tab.sr.24h 02/16/20 Fluticasone Propionate [Flonase Nasal [place] 50 Mcg/[place] 16 gm] 1 spray NASL BID #1 spray.pump 02/16/20 Propranolol HCl [Inderal 20 mg Tablet] 20 mg PO Q8 #90 tablet 02/16/20 History of Present Illiness History of Present Illness: According to admitting provider: LM COOLEY is a 59 year old female who presents with a 3-day history of progressive muscle stiffness and confusion which she states began after she began taking her home psychiatric medication as it was prescribed by multiple different providers/facilities. Highly suspect she took medications that were actually discontinued. She was noted to have rhabdomyolysis on admission with CK of 1200. ED physician checked troponin thou gh patient did not have any chest pain. Troponin was elevated and has been trending downward. We are continuing to trend troponin. Calcium is low at 2.9 this is being repleted. Patient has a history of bipolar disorder and prior suicide attempt for which she was admitted to a psychiatric facility. She has been started on IV fluids. Psychiatry has been consulted by ED and they have reconciled the patient's psychiatric medications fully. Patient will be admitted under [facility] to [facility]. Hospital Course Hospital Course: Patient initially presented to the hospital with progressive contractures in her extremities which was thought to be secondary to her psychotropic medications. She was continued on Cogentin. She was evaluated by psychiatry given concerns of patient's care for herself and possibility that her bipolar disorder was decompensated. Psychiatry cleared patient and stated that she did not need involuntary confinement. Patient was later admitted to the hospitalist service after being in the ER for a few days for evaluation of rhabdomyolysis. Rhabdomyolysis is thought to be due to excessive muscle contractions. She was g iven Ativan as needed and Cogentin. She was also given IV fluids with improvement of her rhabdomyolysis. The Risperdal could have been contributing to muscle contractures and has been discontinued. While in the hospital, patient had drunk about 10 L of water on her first day in the ER. Patient continuously complained of polydipsia and polyuria. She had large output of urine. This raises concerns for diabetes insipidus. 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 She states she has been on lithium for over 7 years now likely has caused this change. Seems the patient was put on 3 L water intake restriction and subsequently became severely hypernatremic. As patient seems to drink close to 10 L of water to normalize her sodium level, the decision was made to discontinue lithium altogether. Patient was given D5W to correct her hypernatremia. I discontinued the 3 L water restriction. I have discussed options for managing her nephrogenic diabetes insipidus with patient including starting her on a thiazide but we have come to the joint decision that since had thirst faculties still intact, she would like to control her hypernatremia by following her thirst as guide to consume water. Patient sodium level has remained normalized off all IV fluids for the past 2 days now. Patient's lithium has been replaced with Depakote as recommended by psychiatry. I have discussed with Dr. Surendra Mcdonald today via telephone regarding what psychiatric medications to discharge patient with and she recommends discharge with propanolol at current in-hospital dose of 20 mg every 8 hours, Depakote had to discontinue the rest of her psychiatric meds. Patient will follow-up with her psychiatrist Dr. Glen Dent for further management of her psychiatric conditions. She is also set up for home health with [facility] and [facility] for management of her BMP in 1 to 2 weeks from discharge. Physical Exam Vital Signs: Temp Pulse Resp BP Pulse Ox 98.3 F 71 20 121/63 96 02/16/20 07:41 02/16/20 07:41 02/16/20 07:41 02/16/20 07:41 02/16/20 07:41 Intake & Output 02/15/20 02/16/20 02/17/20 06:59 06:59 06:59 Intake Total 1774 5713 Output Total 4200 Balance 1774 1587 Weight 67.8 kg 64.3 kg General appearance: PRESENT: no acute distress, cooperative Respiratory exam: PRESENT: symmetrical, unlabored. ABSENT: accessory muscle use, retraction, tachypnea Extremities exam: PRESENT: other - Contracture at right knee and right fingers. Neurological exam: PRESENT: alert, awake, oriented to person, oriented to place, oriented to time Results Laboratory Results: WBC 12.3 10^3/uL (4.0-10.5) H 02/10/20 05:18 RBC 3.98 10^6/uL (3.72-5.28) 02/10/20 05:18 Hgb 11.3 g/dL (12.0-15.5) L 02/10/20 05:18 Hct 34.0 % (36.0-47.0) L 02/10/20 05:18 MCV 86 fl (80-97) 02/10/20 05:18 MCH 28.4 pg (27.0-33.4) 02/10/20 05:18 MCHC 33.2 g/dL (32.0-36.0) 02/10/20 05:18 RDW 15.0 % (11.5-14.0) H 02/10/20 05:18 Plt Count 279 10^3/uL (150-450) 02/10/20 05:18 Lymph % (Auto) 12.2 % (13-45) L 02/10/20 05:18 [place] % (Auto) 9.1 % (3-13) 02/10/20 05:18 Eos % (Auto) 1.1 % (0-6) 02/10/20 05:18 Baso % (Auto) 0.4 % (0-2) 02/10/20 05:18 Absolute Neuts (auto) 9.5 10^3/uL (1.7-8.2) H 02/10/20 05:18 Absolute Lymphs (auto) 1.5 10^3/uL (0.5-4.7) 02/10/20 05:18 Absolute Monos (auto) 1.1 10^3/uL (0.1-1.4) 02/10/20 05:18 Absolute Eos (auto) 0.1 10^3/uL (0.0-0.6) 02/10/20 05:18 Absolute Basos (auto) 0.0 10^3/uL (0.0-0.2) 02/10/20 05:18 Seg Neutrophils % 77.2 % (42-78) 02/10/20 05:18 Sodium 139.8 mmol/L (137-145) 02/16/20 05:48 Potassium 4.0 mmol/L (3.6-5.0) 02/16/20 05:48 Chloride 110 mmol/L (98-107) H 02/16/20 05:48 Carbon Dioxide 25 mmol/L (22-30) 02/16/20 05:48 Anion Gap 5 (5-19) 02/16/20 05:48 BUN 6 mg/dL (7-20) L 02/16/20 05:48 Creatinine 0.55 mg/dL (0.52-1.25) 02/16/20 05:48 Est GFR ( Amer) > 60 (>60) 02/16/20 05:48 Est GFR (Non-Af Amer) Cancelled 02/12/20 00:56 Est GFR (MDRD) Non-Af > 60 (>60) 02/16/20 05:48 Glucose 105 mg/dL (75-110) 02/16/20 05:48 Serum Osmolality 323 mOsm/kg (275-301) H 02/11/20 05:09 Calcium 8.3 mg/dL (8.4-10.2) L 02/16/20 05:48 Phosphorus 2.5 mg/dL (2.5-4.5) 02/10/20 05:18 Magnesium 2.0 mg/dL (1.6-2.3) 02/16/20 05:48 Total Bilirubin 0.6 mg/dL (0.2-1.3) 02/09/20 09:00 Direct Bilirubin 0.1 mg/dL (0.0-0.4) 02/09/20 09:00 Neonat Total Bilirubin Not Reportable 02/09/20 09:00 Neonat Direct Bilirubin Not Reportable 02/09/20 09:00 Neonat Indirect Bili Not Reportable 02/09/20 09:00 AST 60 U/L (14-36) H 02/09/20 09:00 ALT 21 U/L (<35) 02/09/20 09:00 Alkaline Phosphatase 60 U/L (38-126) 02/09/20 09:00 Creatine Kinase 475 U/L (30-135) H 02/11/20 05:09 Troponin I 0.083 ng/mL 02/10/20 23:30 Total Protein 6.2 g/dL (6.3-8.2) L 02/09/20 09:00 Albumin 3.1 g/dL (3.5-5.0) L 02/09/20 09:00 EGFR Cancelled 02/12/20 00:56 TSH 2.21 uIU/mL (0.47-4.68) 02/09/20 09:00 Urine Color STRAW 02/07/20 19:30 Urine Appearance CLEAR 02/07/20 19:30 Urine pH 7.0 (5.0-9.0) 02/07/20 19:30 Ur Specific [place] 1.003 02/07/20 19:30 Urine Protein NEGATIVE mg/dL (NEGATIVE) 02/07/20 19:30 Urine Glucose (UA) NEGATIVE mg/dL (NEGATIVE) 02/07/20 19:30 Urine Ketones 20 mg/dL (NEGATIVE) H 02/07/20 19:30 Urine Blood SMALL (NEGATIVE) H 02/07/20 19:30 Urine Nitrite NEGATIVE (NEGATIVE) 02/07/20 19:30 Urine Bilirubin NEGATIVE (NEGATIVE) 02/07/20 19:30 Urine Urobilinogen NEGATIVE mg/dL (<2.0) 02/07/20 19:30 Ur Leukocyte Esterase NEGATIVE (NEGATIVE) 02/07/20 19:30 Urine WBC (Auto) 0 /HPF 02/07/20 19:30 Urine RBC (Auto) 0 /HPF 02/07/20 19:30 Urine Bacteria (Auto) TRACE /HPF 02/07/20 19:30 Squamous Epi Cells Auto 1 /HPF 02/07/20 19:30 Urine Osmolality 156 mOsm/kg (300-900) L 02/11/20 14:37 Urine Ascorbic Acid NEGATIVE (NEGATIVE) 02/07/20 19:30 Urine Opiates Screen NEGATIVE 02/07/20 19:30 Urine Methadone Screen NEGATIVE 02/07/20 19:30 Acetaminophen < 10 ug/mL (10-30) L 02/07/20 21:15 Ur Barbiturates Screen NEGATIVE 02/07/20 19:30 Ur Phencyclidine Scrn NEGATIVE 02/07/20 19:30 Ur Amphetamines Screen NEGATIVE 02/07/20 19:30 U Benzodiazepines Scrn NEGATIVE 02/07/20 19:30 [place] 0.8 mEq/L (0.6-1.2) 02/11/20 05:09 Urine Cocaine Screen NEGATIVE 02/07/20 19:30 U Marijuana (THC) Screen NEGATIVE 02/07/20 19:30 Serum Alcohol < 10 mg/dL (NONE DETECTED) 02/07/20 21:15 02/09/20 02/09/20 02/09/20 09:00 17:00 23:10 Troponin I 0.245 0.155 0.143 02/10/20 23:30 Troponin I 0.083 Impressions: Chest X-Ray 02/07/20 21:36 IMPRESSION: Nodular density in the right lung base and fullness in the right hilar region for which adenopathy is not excluded. Consider follow-up with dedicated CT copyright 2010 [employer]- All Rights Reserved Plan Time Spent: Greater than 30 Minutes Stroke Is this a Stroke Patient?: Yes Stroke Pt being discharged on Anti-thrombolytic therapy?: Yes Stroke Pt being discharged on Anti-coagulation therapy?: No Reason(s) for not prescribing Anti-coagulation therapy:: Not indicated Stroke Pt being discharged on Statins?: Yes Acute Heart Failure - Is this a Heart Failure Patient?: No
[2020-02-16] MEDS: ACETAMINOPHEN 325 MG TABLET PO PRN (12:13)
--- NOTE | 2020-02-16 12:52 | Progress Note ---
Provider Note Provider Note: Discharge summary already dictated on discharge order was placed. However, he was brought to my attention that patients boyfriend who typically takes care of patient at home just went down with a femur fracture and just had a surgery done for this and as such will not be able to help take care of patient at home. He has been helping her with services including opening of her pill bottles as she has deficits from a prior stroke in her right arm. As such it would be difficult for patient to care for herself at home at this time. Patient seems to have ambulated 100 feet with assistance during her last physical therapy session. Have consulted discharge planning to plan for placement at SNF. Patient will require 30 days or less of physical rehabilitation at the alf facility.
[2020-02-16] MEDS: MELATONIN 3 MG TABLET PO SCH (21:22)
[2020-02-16] MEDS: ASPIRIN 81 MG TABLET, ENT COATED PO SCH (21:23)
[2020-02-17] MEDS: PANTOPRAZOLE SODIUM 40 MG TABLET.DR PO SCH (05:30)
[2020-02-17] MEDS: PROPRANOLOL HCL 20 MG TABLET PO SCH ×3 (05:30→21:09)
[2020-02-17 10:07] LABS: ANION GAP 8 (5-19); BLOOD UREA NITROGEN 3 mg/dL (7-20); CALCIUM 8.5 mg/dL (8.4-10.2); CARBON DIOXIDE 24 mmol/L (22-30); CHLORIDE 106 mmol/L (98-107); GLUCOSE 152 mg/dL (75-110); POTASSIUM 3.7 mmol/L (3.6-5.0)
[2020-02-17] MEDS: AMLODIPINE BESYLATE 5 MG TABLET PO SCH (10:13)
[2020-02-17] MEDS: DIVALPROEX SODIUM 250 MG TABLET.DR PO SCH ×2 (10:13→17:21)
[2020-02-17] MEDS: MAGNESIUM OXIDE 400 MG TABLET PO SCH (10:13)
[2020-02-17] MEDS: FLUTICASONE/VILANTEROL 200-25 MCG/DOSE IH SCH (10:17)
[2020-02-17] MEDS: FLUTICASONE NASAL SPRAY 50 MCG/SPRY 120 SPRAY/16 GM NASL SCH ×2 (10:17→17:21)
[2020-02-17] MEDS: ENOXAPARIN SODIUM INJ 30 MG/0.3 ML DISP.SYRIN SUBCUT SCH (10:19)
[2020-02-17] MEDS: POTASSIUM CHLORIDE 10 MEQ TABLET.ER PO SCH (11:03)
--- NOTE | 2020-02-17 11:33 | PDOC PROGRESS REPORT ---
Subjective Progress Note for:: 02/17/20 Subjective:: Patient drank about 7 L of water yesterday. Still seems to have pretty overwhelming thirst. Sodium looks good. Denies any fever chills chest pain or shortness of breath. Diuresed about 6.8 L as well. So technically quite net even in terms of I's and O's. Reason For Visit: RHABDOMYOLYSIS HYPOKALEMIA BIPOLAR DISORDER Physical Exam Vital Signs: Temp Pulse Resp BP Pulse Ox 97.9 F 79 18 113/49 L 99 02/17/20 07:34 02/17/20 07:34 02/17/20 07:34 02/17/20 07:34 02/17/20 07:34 Intake & Output 02/16/20 02/17/20 02/18/20 06:59 06:59 06:59 Intake Total 5787 7116 Output Total 4200 6800 Balance 1587 316 Weight 64.3 kg 64.6 kg General appearance: PRESENT: no acute distress, cooperative Neck exam: ABSENT: JVD Respiratory exam: PRESENT: symmetrical, unlabored. ABSENT: accessory muscle use, retraction, tachypnea GI/Abdominal exam: PRESENT: soft. ABSENT: rebound, rigid, tenderness Musculoskeletal exam: PRESENT: other - Contracture of right fingers and right knee Results Laboratory Results: 02/10/20 05:18 02/17/20 09:24 02/17/20 09:24 Sodium 137.5 Potassium 3.7 Chloride 106 Carbon Dioxide 24 Anion Gap 8 BUN 3 L Creatinine 0.55 Est GFR ( Amer) > 60 Glucose 152 H Calcium 8.5 02/07/20 02/08/20 02/09/20 21:15 19:40 09:00 Creatine Kinase 605 H 706 H 1174 H Troponin I 02/09/20 02/09/20 02/09/20 09:00 17:00 23:10 Creatine Kinase Troponin I 0.245 0.155 0.143 02/10/20 02/10/20 02/10/20 05:18 23:30 23:30 Creatine Kinase 881 H 613 H Troponin I 0.083 02/11/20 05:09 Creatine Kinase 475 H Troponin I Impressions: Chest X-Ray 02/07/20 21:36 IMPRESSION: Nodular density in the right lung base and fullness in the right hilar region for which adenopathy is not excluded. Consider follow-up with dedicated CT copyright 2010 [employer]- All Rights Reserved Assessment and Plan - Diagnosis (1) Diabetes insipidus, nephrogenic Is this a current diagnosis for this admission?: Yes Plan: Patient very certainly has nephrogenic diabetes insipidus secondary to long-term lithium use [reports 7 years of usage]. [place] has been discontinued during this admission. Patient got very hypernatremic earlier in hospitalization when placed on 3 L fluid restriction. It has since been discontinued. However her urine output seems to be a whole lot as she put out 6.8 L yesterday and had to drink about 7 L of water. Her thirst faculties have proven effective in guiding her sodium correction as her sodium has remained normal for the past 3 days off all IV fluids. However, I will start patient on hydrochlorothiazide 12.5 mg daily as it should help reduce polyuria and subsequently polydipsia in nephrogenic DI. (2) Hypernatremia Is this a current diagnosis for this admission?: Yes Plan: Due to DI. Resolved. (3) Rhabdomyolysis Qualifiers: Rhabdomyolysis type: non-traumatic Qualified Code(s): M62.82 - Rhabdomyolysis Is this a current diagnosis for this admission?: Yes Plan: Very much resolved at this point. Last time CK was checked it was in the 400s. (4) Bipolar disorder Qualifiers: Active/Remission status: currently active Current bipolar episode type: depressed Current episode severity: severe Psychotic features: without psychotic features Qualified Code(s): F31.4 - Bipolar disorder, current episode depressed, severe, without psychotic features Is this a current diagnosis for this admission?: Yes Plan: I have discussed case with Dr. Surendra Mcdonald who evaluated patient and states that patient does not need involuntary commitment for bipolar disorder. She also states that patient should only be on Depakote and propanolol at current dose and that we should discontinue the rest of her psych medications. They will be reaching out to her primary psychiatrist Dr. Riley Agee to notify him. (5) Anxiety Is this a current diagnosis for this admission?: Yes (6) Hypokalemia Is this a current diagnosis for this admission?: Yes Plan: Secondary to lithium adverse effect. Continue on p.o. potassium and magnesium supplements. (7) Muscle contracture Qualifiers: Muscle contracture area: multiple sites Qualified Code(s): M62.49 - Contracture of muscle, multiple sites Is this a current diagnosis for this admission?: Yes Plan: Right hand contracture as well as right knee contracture secondary to her prior CVA but may have been complicated by Risperdal which has since been discontinued. Continued physical therapy. (8) Adverse effect of lithium Is this a current diagnosis for this admission?: Yes - Plan Summary Summary: Patient is currently ready for discharge and simply pending placement at SNF as a boyfriend currently is down with a femur fracture I would not be able to help care for patient. Discharge planning is currently working on SNF placement and COVID test is pending. - Time Time Spent with patient: Less than 15 minutes
[2020-02-17] MEDS: HYDROCHLOROTHIAZIDE 12.5 MG TABLET PO SCH (13:30)
[2020-02-17] MEDS: MELATONIN 3 MG TABLET PO SCH (21:09)
[2020-02-17] MEDS: ASPIRIN 81 MG TABLET, ENT COATED PO SCH (21:09)
[2020-02-17] MEDS: SIMVASTATIN 10 MG TABLET PO SCH (21:09)
[2020-02-18] MEDS: PROPRANOLOL HCL 20 MG TABLET PO SCH ×3 (06:12→21:49)
[2020-02-18] MEDS: PANTOPRAZOLE SODIUM 40 MG TABLET.DR PO SCH (06:12)
[2020-02-18] MEDS: DIVALPROEX SODIUM 250 MG TABLET.DR PO SCH ×2 (09:55→17:46)
[2020-02-18] MEDS: AMLODIPINE BESYLATE 5 MG TABLET PO SCH (09:55)
[2020-02-18] MEDS: POTASSIUM CHLORIDE 10 MEQ TABLET.ER PO SCH (09:55)
[2020-02-18] MEDS: HYDROCHLOROTHIAZIDE 12.5 MG TABLET PO SCH (09:56)
[2020-02-18] MEDS: FLUTICASONE/VILANTEROL 200-25 MCG/DOSE IH SCH (09:56)
[2020-02-18] MEDS: MAGNESIUM OXIDE 400 MG TABLET PO SCH (09:56)
[2020-02-18] MEDS: FLUTICASONE NASAL SPRAY 50 MCG/SPRY 120 SPRAY/16 GM NASL SCH ×2 (09:56→17:45)
[2020-02-18] MEDS: ENOXAPARIN SODIUM INJ 30 MG/0.3 ML DISP.SYRIN SUBCUT SCH (10:03)
[2020-02-18] MEDS: ACETAMINOPHEN 325 MG TABLET PO PRN ×3 (10:37→21:48)
--- NOTE | 2020-02-18 10:58 | PDOC PROGRESS REPORT ---
Subjective Progress Note for:: 02/18/20 Subjective:: 59-year-old female on lithium for 7 years admitted for diabetes insipidus. At the time of admission CK level is around 1200 she is hypernatremic. Calcium is around 2.9 at the time of admission. [place] is on hold she was placed on fluid restriction initially now she is off the fluid restriction. Yesterday urinary output is 6.8 L and she drank around 7 L of fluid. Serum sodium today is 137.5 stable. Serum potassium is 3.7. Creatinine is 0.55. WBC count is 12,000. She was started on hydrochlorothiazide yesterday. In my opinion which is appropriate. Probably in the bed communicating well. Expressing desire to go home. Reason For Visit: RHABDOMYOLYSIS HYPOKALEMIA BIPOLAR DISORDER Physical Exam Vital Signs: Temp Pulse Resp BP Pulse Ox 98.4 F 78 16 131/54 H 97 02/18/20 07:47 02/18/20 07:47 02/18/20 07:47 02/18/20 07:47 02/18/20 07:47 Intake & Output 02/17/20 02/18/20 02/19/20 06:59 06:59 06:59 Intake Total 7116 2775 Output Total 6800 Balance 316 2775 Weight 64.6 kg 64.3 kg General appearance: PRESENT: no acute distress, well-developed Head exam: PRESENT: atraumatic Eye exam: PRESENT: PERRLA Mouth exam: PRESENT: moist, tongue midline Teeth exam: PRESENT: poor dentation Neck exam: ABSENT: carotid bruit, JVD, lymphadenopathy, thyromegaly Cardiovascular exam: PRESENT: RRR. ABSENT: diastolic murmur, rubs, systolic murmur Pulses: PRESENT: normal dorsalis pedis pul GI/Abdominal exam: PRESENT: normal bowel sounds, soft. ABSENT: distended, guarding, mass, organolmegaly, rebound, tenderness Rectal exam: PRESENT: deferred Extremities exam: PRESENT: full ROM. ABSENT: calf tenderness, clubbing, pedal edema Neurological exam: PRESENT: alert, awake, oriented to person, oriented to place, oriented to time, oriented to situation, CN II-XII grossly intact. ABSENT: motor sensory deficit Psychiatric exam: PRESENT: appropriate affect, normal mood. ABSENT: homicidal ideation, suicidal ideation Results Laboratory Results: 02/10/20 05:18 02/17/20 09:24 02/07/20 02/08/20 02/09/20 21:15 19:40 09:00 Creatine Kinase 605 H 706 H 1174 H Troponin I 02/09/20 02/09/20 02/09/20 09:00 17:00 23:10 Creatine Kinase Troponin I 0.245 0.155 0.143 02/10/20 02/10/20 02/10/20 05:18 23:30 23:30 Creatine Kinase 881 H 613 H Troponin I 0.083 02/11/20 05:09 Creatine Kinase 475 H Troponin I Impressions: Chest X-Ray 02/07/20 21:36 IMPRESSION: Nodular density in the right lung base and fullness in the right hilar region for which adenopathy is not excluded. Consider follow-up with dedicated CT copyright 2010 [employer]- All Rights Reserved Assessment and Plan - Diagnosis (1) Rhabdomyolysis Qualifiers: Rhabdomyolysis type: non-traumatic Qualified Code(s): M62.82 - Rhabdomyolysis Is this a current diagnosis for this admission?: Yes Plan: Very much resolved at this point. Last time CK was checked it was in the 400s. CK initially 1200 on admission, trending IV fluids Renal function normal on admission, trend BMP Troponin elevated likely due to rhabdomyolysis, patient has no chest pain Psychiatric medications appropriately reconciled by psychiatrist here (2) Elevated troponin Is this a current diagnosis for this admission?: Yes Plan: Likely due to rhabdomyolysis, patient denies chest pain Cardiology was called by ED and they wanted patient admitted for observation and trending troponins Patient denies history of cardiac disease 02/10/2020 Troponin trending down parallel to creatinine kinase. Continue to monitor. Likely due to rhabdomyolysis, patient denies chest pain Cardiology was called by ED and they wanted patient admitted for observation and trending troponins Patient denies history of cardiac disease (3) Medication adverse effect Qualifiers: Encounter type: initial encounter Qualified Code(s): T50.905A - Adverse effect of unspecified drugs, medicaments and biological substances, initial encounter Is this a current diagnosis for this admission?: Yes Plan: Psychiatry consulted by ED and I have reconciled the patient's medications (4) Bipolar disorder Qualifiers: Active/Remission status: currently active Current bipolar episode type: depressed Current episode severity: severe Psychotic features: without psychotic features Qualified Code(s): F31.4 - Bipolar disorder, current episode depressed, severe, without psychotic features Is this a current diagnosis for this admission?: No Plan: I have discussed case with Dr. Surendra Mcdonald who evaluated patient and states that patient does not need involuntary commitment for bipolar disorder. She also states that patient should only be on Depakote and propanolol at current dose and that we should discontinue the rest of her psych medications. They will be reaching out to her primary psychiatrist Dr. Riley Agee to notify him. Medication regimen per psychiatrist (5) Expressive aphasia Is this a current diagnosis for this admission?: No Plan: Chronic, baseline due to prior CVA - Plan Summary Summary: Patient is currently ready for discharge and simply pending placement at SNF as a boyfriend currently is down with a femur fracture I would not be able to help care for patient. Discharge planning is currently working on SNF placement and COVID test is pending.
[2020-02-18] MEDS: SIMVASTATIN 10 MG TABLET PO SCH (21:48)
[2020-02-18] MEDS: MELATONIN 3 MG TABLET PO SCH (21:48)
[2020-02-18] MEDS: ASPIRIN 81 MG TABLET, ENT COATED PO SCH (21:49)
[2020-02-19] MEDS: PROPRANOLOL HCL 20 MG TABLET PO SCH (05:32)
[2020-02-19] MEDS: PANTOPRAZOLE SODIUM 40 MG TABLET.DR PO SCH (05:32)
[2020-02-19] MEDS: DIVALPROEX SODIUM 250 MG TABLET.DR PO SCH (09:29)
[2020-02-19] MEDS: ACETAMINOPHEN 325 MG TABLET PO PRN (09:29)
[2020-02-19] MEDS: MAGNESIUM OXIDE 400 MG TABLET PO SCH (09:30)
[2020-02-19] MEDS: AMLODIPINE BESYLATE 5 MG TABLET PO SCH (09:30)
[2020-02-19] MEDS: HYDROCHLOROTHIAZIDE 12.5 MG TABLET PO SCH (09:30)
[2020-02-19] MEDS: POTASSIUM CHLORIDE 10 MEQ TABLET.ER PO SCH (09:30)
[2020-02-19] MEDS: FLUTICASONE/VILANTEROL 200-25 MCG/DOSE IH SCH (09:31)
[2020-02-19] MEDS: FLUTICASONE NASAL SPRAY 50 MCG/SPRY 120 SPRAY/16 GM NASL SCH (09:32)
[2020-02-19] MEDS: ENOXAPARIN SODIUM INJ 30 MG/0.3 ML DISP.SYRIN SUBCUT SCH (09:33)
--- NOTE | 2020-02-19 10:32 | PDOC DISCHARGE SUMMARY ---
Impression - Admit/DC Date/PCP Admission Date/Primary Care Provider: 02/12/20 13:52 FADI BEACH PA-C Discharge Date: 02/19/20 - Discharge Diagnosis (1) Diabetes insipidus, nephrogenic Is this a current diagnosis for this admission?: Yes (2) Hypernatremia Is this a current diagnosis for this admission?: Yes (3) Rhabdomyolysis Is this a current diagnosis for this admission?: Yes (4) Elevated troponin Is this a current diagnosis for this admission?: Yes (5) Bipolar disorder Is this a current diagnosis for this admission?: Yes (6) Hypokalemia Is this a current diagnosis for this admission?: Yes (7) Anxiety Is this a current diagnosis for this admission?: Yes (8) Expressive aphasia Is this a current diagnosis for this admission?: Yes (9) Adverse effect of lithium Is this a current diagnosis for this admission?: Yes - Assessment Summary: Patient will be discharged home. Home health has been ordered. Follow-up with Fadi beach and Glen Dent MD - Additional Information Resuscitation Status: Full Code Discharge Diet: As Tolerated Discharge Activity: Activity As Tolerated Referrals: GLEN DENT MD [NO LOCAL MD] - 02/26/20 8:20 am (F/U 7-10 DAYS) FADI BEACH PA-C [Primary Care Provider] - 02/27/20 10:45 am () Prescriptions: Divalproex Sodium [Depakote Er 250 Mg Tablet] 250 mg PO Q12 #60 tab.sr.24h Aspirin [Ecotrin 81 mg EC Tablet] 81 mg PO QHS #30 tabec Fluticasone Propionate [Flonase Nasal Gilby 50 Mcg/Gilby 16 gm] 1 spray NASL BID #1 spray.pump Propranolol HCl [Inderal 20 mg Tablet] 20 mg PO Q8 #90 tablet Potassium Chloride 40 meq PO DAILY 15 Days #30 tablet.er Home Medications: Omeprazole 40 mg PO DAILY 07/06/15 Simvastatin 20 mg PO QHS 03/06/17 Zolpidem Tartrate [Ambien] 10 mg PO QHS 03/06/17 Fluticasone Propion/Salmeterol [Wixela 250-50 Inhub] 1 each IH BID 01/10/20 Tizanidine HCl [Zanaflex 4 mg Tablet] 4 mg PO Q8HP PRN 01/10/20 Amlodipine Besylate [Norvasc 5 mg Tablet] 5 mg PO DAILY 02/09/20 Aspirin [Ecotrin 81 mg EC Tablet] 81 mg PO QHS #30 tabec 02/16/20 Divalproex Sodium [Depakote Er 250 Mg Tablet] 250 mg PO Q12 #60 tab.sr.24h 02/16/20 Fluticasone Propionate [Flonase Nasal Gilby 50 Mcg/Gilby 16 gm] 1 spray NASL BID #1 spray.pump 02/16/20 Potassium Chloride 40 meq PO DAILY 15 Days #30 tablet.er 02/16/20 Propranolol HCl [Inderal 20 mg Tablet] 20 mg PO Q8 #90 tablet 02/16/20 History of Present Illiness History of Present Illness: LM COOLEY is a 59 year old female who presents with a 3-day history of progressive muscle stiffness and confusion which she states began after she began taking her home psychiatric medication as it was prescribed by multiple different providers/facilities. Highly suspect she took medications that were actually discontinued. She was noted to have rhabdomyolysis on admission with CK of 1200. ED physician checked troponin though patient did not have any chest pain. Troponin was elevated and has been trending downward. We are continuing to trend troponin. Calcium is low at 2.9 this is being repleted. Patient has a history of bipolar disorder and prior suicide attempt for which she was admitted to a psychiatric facility. She has been started on IV fluids. Psychiatry has been consulted by ED and they have reconciled the patient's psychiatric medications fully. Patient will be admitted under observation to [facility]. Hospital Course Hospital Course: Patient initially presented to the hospital with progressive contractures in her extremities which was thought to be secondary to her psychotropic medications. She was continued on Cogentin. She was evaluated by psychiatry given concerns of patient's care for herself and possibility that her bipolar disorder was decompensated. Psychiatry cleared patient and stated that she did not need involuntary confinement. Patient was later admitted to the hospitalist service after being in the ER for a few days for evaluation of rhabdomyolysis. Rhabdomyolysis is thought to be due to excessive muscle contractions. She was given Ativan as needed and Cogentin. She was also given IV fluids with improvement of her rhabdomyolysis. The Risperdal could have been contributing to muscle contractures and has been discontinued. While in the hospital, patient had drunk about 10 L of water on her first day in the ER. Patient continuously complained of polydipsia and polyuria. She had large output of urine. This raises concerns for diabetes insipidus. 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 She states she has been on lithium for over 7 years now likely has caused this change. Seems the patient was put on 3 L water intake restriction and subsequently became severely hypernatremic. As patient seems to drink close to 10 L of water to normalize her sodium level, the decision was made to discontinue lithium altogether. Patient was given D5W to correct her hypernatremia. I discontinued the 3 L water restriction. I have discussed options for managing her nephrog enic diabetes insipidus with patient including starting her on a thiazide but we have come to the joint decision that since had thirst faculties still intact, she would like to control her hypernatremia by following her thirst as guide to consume water. Patient sodium level has remained normalized off all IV fluids for the past 2 days now. Patient's lithium has been replaced with Depakote as recommended by psychiatry. I have discussed with Dr. Surendra Mcdonald today via telephone regarding what psychiatric medications to discharge patient with and she recommends discharge with propanolol at current in-hospital dose of 20 mg every 8 hours, Depakote had to discontinue the rest of her psychiatric meds. Patient will follow-up with her psychiatrist Dr. Glen Dent for further management of her psychiatric conditions. She is also set up for home health with PT OT and residential for management of her BMP in 1 to 2 weeks from discharge. Physical Exam Vital Signs: Temp Pulse Resp BP Pulse Ox 98.2 F 66 24 H 112/41 L 99 02/19/20 07:26 02/19/20 07:26 02/19/20 07:26 02/19/20 07:26 02/19/20 07:26 Intake & Output 02/18/20 02/19/20 02/20/20 06:59 06:59 06:59 Intake Total 2775 2500 900 Balance 2775 2500 900 Weight 64.3 kg 65 kg General appearance: PRESENT: no acute distress, cooperative Respiratory exam: PRESENT: clear to auscultation [place], symmetrical, unlabored. ABSENT: rales, rhonchi, tachypnea, wheezes Cardiovascular exam: PRESENT: RRR, +S1, +S2 GI/Abdominal exam: PRESENT: normal bowel sounds, soft. ABSENT: tenderness Rectal exam: PRESENT: deferred Gentrourinary exam: ABSENT: indwelling catheter Neurological exam: PRESENT: alert, awake, oriented to person, oriented to place, oriented to situation Psychiatric exam: PRESENT: flat affect. ABSENT: agitated, anxious Results Laboratory Results: WBC 12.3 10^3/uL (4.0-10.5) H 02/10/20 05:18 RBC 3.98 10^6/uL (3.72-5.28) 02/10/20 05:18 Hgb 11.3 g/dL (12.0-15.5) L 02/10/20 05:18 Hct 34.0 % (36.0-47.0) L 02/10/20 05:18 MCV 86 fl (80-97) 02/10/20 05:18 MCH 28.4 pg (27.0-33.4) 02/10/20 05:18 MCHC 33.2 g/dL (32.0-36.0) 02/10/20 05:18 RDW 15.0 % (11.5-14.0) H 02/10/20 05:18 Plt Count 279 10^3/uL (150-450) 02/10/20 05:18 Lymph % (Auto) 12.2 % (13-45) L 02/10/20 05:18 [place] % (Auto) 9.1 % (3-13) 02/10/20 05:18 Eos % (Auto) 1.1 % (0-6) 02/10/20 05:18 Baso % (Auto) 0.4 % (0-2) 02/10/20 05:18 Absolute Neuts (auto) 9.5 10^3/uL (1.7-8.2) H 02/10/20 05:18 Absolute Lymphs (auto) 1.5 10^3/uL (0.5-4.7) 02/10/20 05:18 Absolute Monos (auto) 1.1 10^3/uL (0.1-1.4) 02/10/20 05:18 Absolute Eos (auto) 0.1 10^3/uL (0.0-0.6) 02/10/20 05:18 Absolute Basos (auto) 0.0 10^3/uL (0.0-0.2) 02/10/20 05:18 Seg Neutrophils % 77.2 % (42-78) 02/10/20 05:18 Sodium 137.5 mmol/L (137-145) 02/17/20 09:24 Potassium 3.7 mmol/L (3.6-5.0) 02/17/20 09:24 Chloride 106 mmol/L (98-107) 02/17/20 09:24 Carbon Dioxide 24 mmol/L (22-30) 02/17/20 09:24 Anion Gap 8 (5-19) 02/17/20 09:24 BUN 3 mg/dL (7-20) L 02/17/20 09:24 Creatinine 0.55 mg/dL (0.52-1.25) 02/17/20 09:24 Est GFR ( Amer) > 60 (>60) 02/17/20 09:24 Est GFR (Non-Af Amer) Cancelled 02/12/20 00:56 Est GFR (MDRD) Non-Af > 60 (>60) 02/17/20 09:24 Glucose 152 mg/dL (75-110) H 02/17/20 09:24 Serum Osmolality 323 mOsm/kg (275-301) H 02/11/20 05:09 Calcium 8.5 mg/dL (8.4-10.2) 02/17/20 09:24 Phosphorus 2.5 mg/dL (2.5-4.5) 02/10/20 05:18 Magnesium 2.0 mg/dL (1.6-2.3) 02/16/20 05:48 Total Bilirubin 0.6 mg/dL (0.2-1.3) 02/09/20 09:00 Direct Bilirubin 0.1 mg/dL (0.0-0.4) 02/09/20 09:00 Neonat Total Bilirubin Not Reportable 02/09/20 09:00 Neonat Direct Bilirubin Not Reportable 02/09/20 09:00 Neonat Indirect Bili Not Reportable 02/09/20 09:00 AST 60 U/L (14-36) H 02/09/20 09:00 ALT 21 U/L (<35) 02/09/20 09:00 Alkaline Phosphatase 60 U/L (38-126) 02/09/20 09:00 Creatine Kinase 475 U/L (30-135) H 02/11/20 05:09 Troponin I 0.083 ng/mL 02/10/20 23:30 Total Protein 6.2 g/dL (6.3-8.2) L 02/09/20 09:00 Albumin 3.1 g/dL (3.5-5.0) L 02/09/20 09:00 EGFR Cancelled 02/12/20 00:56 TSH 2.21 uIU/mL (0.47-4.68) 02/09/20 09:00 Urine Color STRAW 02/07/20 19:30 Urine Appearance CLEAR 02/07/20 19:30 Urine pH 7.0 (5.0-9.0) 02/07/20 19:30 Ur Specific [place] 1.003 02/07/20 19:30 Urine Protein NEGATIVE mg/dL (NEGATIVE) 02/07/20 19:30 Urine Glucose (UA) NEGATIVE mg/dL (NEGATIVE) 02/07/20 19:30 Urine Ketones 20 mg/dL (NEGATIVE) H 02/07/20 19:30 Urine Blood SMALL (NEGATIVE) H 02/07/20 19:30 Urine Nitrite NEGATIVE (NEGATIVE) 02/07/20 19:30 Urine Bilirubin NEGATIVE (NEGATIVE) 02/07/20 19:30 Urine Urobilinogen NEGATIVE mg/dL (<2.0) 02/07/20 19:30 Ur Leukocyte Esterase NEGATIVE (NEGATIVE) 02/07/20 19:30 Urine WBC (Auto) 0 /HPF 02/07/20 19:30 Urine RBC (Auto) 0 /HPF 02/07/20 19:30 Urine Bacteria (Auto) TRACE /HPF 02/07/20 19:30 Squamous Epi Cells Auto 1 /HPF 02/07/20 19:30 Urine Osmolality 156 mOsm/kg (300-900) L 02/11/20 14:37 Urine Ascorbic Acid NEGATIVE (NEGATIVE) 02/07/20 19:30 Urine Opiates Screen NEGATIVE 02/07/20 19:30 Urine Methadone Screen NEGATIVE 02/07/20 19:30 Acetaminophen < 10 ug/mL (10-30) L 02/07/20 21:15 Ur Barbiturates Screen NEGATIVE 02/07/20 19:30 Ur Phencyclidine Scrn NEGATIVE 02/07/20 19:30 Ur Amphetamines Screen NEGATIVE 02/07/20 19:30 U Benzodiazepines Scrn NEGATIVE 02/07/20 19:30 [place] 0.8 mEq/L (0.6-1.2) 02/11/20 05:09 Urine Cocaine Screen NEGATIVE 02/07/20 19:30 U Marijuana (THC) Screen NEGATIVE 02/07/20 19:30 Serum Alcohol < 10 mg/dL (NONE DETECTED) 02/07/20 21:15 COVID-19 Source NASOPHARYNGEAL 02/16/20 14:28 COVID-19 (JAYME) NOT DETECTED 02/16/20 14:28 02/09/20 02/09/20 02/09/20 09:00 17:00 23:10 Troponin I 0.245 0.155 0.143 02/10/20 23:30 Troponin I 0.083 Impressions: Chest X-Ray 02/07/20 21:36 IMPRESSION: Nodular density in the right lung base and fullness in the right hilar region for which adenopathy is not excluded. Consider follow-up with dedicated CT copyright 2011 [employer]- All Rights Reserved Plan Health Concerns: Bipolar disorder-we will be following up with her psychiatrist. May have also ordered home health to monitor the appropriate medication usage Plan of Treatment: Discharged home. Follow-up with primary care and psychiatry. Goals: Consistent with effective medication regimen Time Spent: Greater than 30 Minutes Stroke Is this a Stroke Patient?: Yes Stroke Pt being discharged on Anti-thrombolytic therapy?: Yes Stroke Pt being discharged on Anti-coagulation therapy?: No Reason(s) for not prescribing Anti-coagulation therapy:: Not indicated Stroke Pt being discharged on Statins?: Yes Acute Heart Failure - Is this a Heart Failure Patient?: No
[2020-02-19 14:46] VITALS: BP 120/80
== END 2020-02-19 15:28 | disposition home health service (06) | DRG 918 ==
LOC: ER 18:46 → EH 02-09 11:47 → 4W 02-09 12:53 → OBSVTOIN 02-12 13:52 → 4N 02-14 06:42
PROVIDERS: ADMIT Internal Medicine; ATTEND Hospitalist
DX: T43.591A Poisoning by other antipsychotics and neuroleptics, accidental (unintentional), initial encounter (principal); M62.82 Rhabdomyolysis; E87.0 Hyperosmolality and hypernatremia; N25.1 Nephrogenic diabetes insipidus; I25.10 Atherosclerotic heart disease of native coronary artery without angina pectoris; E87.6 Hypokalemia; E78.00 Pure hypercholesterolemia, unspecified; K21.9 Gastro-esophageal reflux disease without esophagitis; J44.9 Chronic obstructive pulmonary disease, unspecified; R41.82 Altered mental status, unspecified; F41.8 Other specified anxiety disorders; R00.0 Tachycardia, unspecified; I69.320 Aphasia following cerebral infarction; I69.331 Monoplegia of upper limb following cerebral infarction affecting right dominant side; Y92.018 Other place in single-family (private) house as the place of occurrence of the external cause; Z74.2 Need for assistance at home and no other household member able to render care
CPT/HCPCS: 36415; 71045; 80048; 80053; 80178; 80307; 81001; 82550; 83735; 83930; 83935; 84100; 84443; 84484; 85025; 87070; 87086; 87635; 93005; 93010; 96361; 96365; 96366; 96375; 99285; C9803; G0378; J0515; J1200; J1650; J2060; J3480; J3490; J7030; J7040; J7060; J7120

== ENCOUNTER 2020-02-20 18:24 | Inpatient (IN) | payer MEDICARE ==
[2020-02-20 19:44] LABS: ABSOLUTE BASOPHILS # (AUTO) 0.1 10^3/uL (0.0-0.2); ABSOLUTE LYMPHOCYTES (AUTO) 1.9 10^3/uL (0.5-4.7); ABSOLUTE NEUT (AUTO) 9.6 10^3/uL (1.7-8.2); BASOPHILS % (AUTO) 0.5 % (0-2); EOSINOPHILS % (AUTO) 0.1 % (0-6); HEMATOCRIT 34.5 % (36.0-47.0); HEMOGLOBIN 11.3 g/dL (12.0-15.5); MEAN CORPUSCULAR HGB CONC 32.6 g/dL (32.0-36.0); MEAN CORPUSCULAR VOLUME 86 fl (80-97); MONOCYTES % (AUTO) 7.8 % (3-13); PLATELET COUNT 372 10^3/uL (150-450); RED BLOOD COUNT 4.03 10^6/uL (3.72-5.28); RED CELL DISTRIBUTION WIDTH 15.3 % (11.5-14.0); SEGMENTED NEUTROPHILS % (AUTO) 76.6 % (42-78); TOTAL CELLS COUNTED % (AUTO) 100 %; WHITE BLOOD COUNT 12.5 10^3/uL (4.0-10.5)
[2020-02-20 19:57] LABS: ALBUMIN 3.2 g/dL (3.5-5.0); ALKALINE PHOSPHATASE 81 U/L (38-126); ANION GAP 6 (5-19); ASPARTATE AMINO TRANSFERASE 40 U/L (14-36); BILIRUBIN,TOTAL 0.3 mg/dL (0.2-1.3); BLOOD UREA NITROGEN 10 mg/dL (7-20); CALCIUM 8.9 mg/dL (8.4-10.2); CARBON DIOXIDE 28 mmol/L (22-30); CHLORIDE 101 mmol/L (98-107); GLUCOSE 143 mg/dL (75-110); POTASSIUM 3.5 mmol/L (3.6-5.0); TOTAL PROTEIN 6.7 g/dL (6.3-8.2)
[2020-02-20 20:00] LABS: ALCOHOL < 10 mg/dL (NONE DETECTED)
[2020-02-20 20:07] LABS: APPEARANCE,URINE CLEAR; BILIRUBIN,URINE NEGATIVE (NEGATIVE); COLOR,URINE COLORLESS; GLUCOSE, URINE NEGATIVE (NEGATIVE); KETONES,URINE NEGATIVE (NEGATIVE); LEUKOCYTE ESTERASE,URINE NEGATIVE (NEGATIVE); NITRITE,URINE NEGATIVE (NEGATIVE); PROTEIN,URINE NEGATIVE (NEGATIVE); URINE SPECIFIC GRAVITY 1.001; UROBILINOGEN,URINE NEGATIVE mg/dL (<2.0)
[2020-02-20 20:20] LABS: URINE AMPHETAMINES SCREEN NEGATIVE; URINE BARBITURATES SCREEN NEGATIVE; URINE BENZODIAZEPINES SCREEN NEGATIVE; URINE COCAINE SCREEN NEGATIVE; URINE MARIJUANA (THC) SCREEN NEGATIVE; URINE METHADONE SCREEN NEGATIVE; URINE PHENCYCLIDINE SCREEN NEGATIVE
--- NOTE | 2020-02-20 20:31 | ER Document Report ---
ED General - General Chief Complaint: Fall Injury Stated Complaint: ALTERED MENTAL STATUS Primary Care Provider: FADI ESCOBAR PA-C [Primary Care Provider] - Follow up as needed Mode of Arrival: Medic Information source: Patient, Friend Cannot obtain history due to: Altered mental status Notes: Patient is a 59-year-old female presenting to the emergency department chief complaint of accidental fall and altered mental status. Patient significant other states that he last saw the patient last evening after she was discharged from this hospital secondary to rhabdomyolysis. He states that her medications had been changed while she was here. He states that today found her about 3:57 PM on the floor there was blood to the tip of her nose and she had a bruise to her left hip. Patient at time of presentation is confused and intermittently answering questions appropriately. Patient is unsure as to what happened today. Patient is maintaining her own airway at this time. TRAVEL OUTSIDE OF THE [place] IN LAST 30 DAYS: No - HPI Onset: This afternoon Onset/Duration: Waxing and waning Quality of pain: Achy Severity: Moderate Pain Level: 3 Associated symptoms: Slow to respond Exacerbated by: Denies Relieved by: Denies Similar symptoms previously: Yes Recently seen / treated by doctor: Yes - Related Data Allergies/Adverse Reactions: No Known Drug Allergies Allergy (Severe, Verified 03/06/17 10:27) Past Medical History - General Information source: Patient, Relative Cannot obtain history due to: Altered mental status - Social History Smoking Status: Unknown if Ever Smoked Frequency of alcohol use: None Drug Abuse: None Lives with: Alone Family History: Reviewed & Not Pertinent. denies: CVA Patient has suicidal ideation: No Patient has homicidal ideation: No - Past Medical History Cardiac Medical History: Reports: Hx Coronary Artery Disease - CHOLESTEROL, Hx Hypercholesterolemia Pulmonary Medical History: Reports: Hx COPD Denies: Hx Asthma, Hx Bronchitis, Hx Pneumonia Neurological Medical History: Reports: Hx Seizures - ALCOHOL RELATED SOBER 20+ YEARS GI Medical History: Reports: Hx Gastroesophageal Reflux Disease Musculoskeletal Medical History: Reports Hx Arthritis - Chronic neck and back pain Psychiatric Medical History: Reports: Hx Anxiety, Hx Bipolar Disorder, Hx Depression - anxiety Past Surgical History: Reports: Hx Orthopedic Surgery - discectomy 1998, Hx Tubal Ligation. Denies: Hx Hysterectomy - Immunizations Hx Diphtheria, Pertussis, Tetanus Vaccination: Yes Review of Systems - Review of Systems -: Yes ROS unobtainable due to patient's medical condition Physical Exam - Vital signs Vitals: Resp 28 H 02/20/20 18:34 - Notes Notes: PHYSICAL EXAMINATION: GENERAL: Well-appearing, well-nourished and in no acute distress. HEAD: Atraumatic, normocephalic. EYES: Pupils equal round and reactive to light, extraocular movements intact, sclera anicteric, conjunctiva are normal. ENT: nares patent, oropharynx clear without exudates. Moist mucous membranes. NECK: Normal range of motion, supple without lymphadenopathy, no appreciable JVD LUNGS: Lungs clear to auscultation bilaterally and equal. No wheezes rales or rhonchi. HEART: Regular rate and rhythm without murmurs ABDOMEN: Soft, nontender, normal bowel sounds. No guarding, no rebound. No masses appreciated. EXTREMITIES: Active full range of motion, no pitting or edema. No cyanosis. 2+ pulses x4 NEUROLOGICAL: No focal neurological deficits. Moves all extremities spontaneously and on command. SKIN: Warm, Dry, and intact. Normal turgor, no rashes or lesions noted. Course - Re-evaluation Re-evalutation: 02/20/20 22:01 Patient has been maintained on a monitoring and evaluation advisor while in emergency department patient is remained at baseline as presented. I have reviewed the patient's EKG radiologic and laboratory results however because of the patient's marked confusion I feel most appropriate the patient should be admitted to the hospitalist service. I have spoken with the hospitalist he is agreeable with admission to a medical telemetry bed. Patient is stable at this time. - Vital Signs Vital signs: Temp Pulse Resp BP Pulse Ox 99.7 F 102 H 34 H 131/55 H 94 02/20/20 18:50 02/20/20 18:50 02/20/20 21:00 02/20/20 19:12 02/20/20 19:12 - Laboratory Result Diagrams: 02/20/20 19:30 02/20/20 19:30 Laboratory results interpreted by me: 02/20/20 02/20/20 02/20/20 19:30 19:30 19:30 WBC 12.5 H Hgb 11.3 L Hct 34.5 L RDW 15.3 H Absolute Neuts (auto) 9.6 H Sodium 135.3 L Potassium 3.5 L Glucose 143 H POC Glucose AST 40 H Albumin 3.2 L Valproic Acid 11.0 L Orason < 0.2 L 02/20/20 20:02 WBC Hgb Hct RDW Absolute Neuts (auto) Sodium Potassium Glucose POC Glucose 141 H AST Albumin Valproic Acid Orason - Diagnostic Test Radiology reviewed: Reports reviewed - EKG Interpretation by Me EKG shows normal: Sinus rhythm Rate: Tachycardia Rainbow/QRS: LAHB/LAFB When compared to previous EKG there are: Changes noted Discharge - Discharge Clinical Impression: Altered mental status Qualifiers: Altered mental status type: delirium Qualified Code(s): R41.0 - Disorientation, unspecified Condition: Fair Disposition: ADMITTED OBSERVATION Admitting Provider: Mulu (Hospitalist) Unit Admitted: Telemetry Referrals: FADI ESCOBAR PA-C [Primary Care Provider] - Follow up as needed
[2020-02-20 20:49] LABS: LITHIUM < 0.2 mEq/L (0.6-1.2)
--- NOTE | 2020-02-20 21:02 | EKG REPORT ---
SEVERITY:- ABNORMAL ECG - SINUS TACHYCARDIA LEFT ANTERIOR FASCICULAR BLOCK BORDERLINE T WAVE ABNORMALITIES BORDERLINE PROLONGED QT INTERVAL : Confirmed by: Albert Bowser MD 20-Feb-2020 21:02:05
--- NOTE | 2020-02-20 21:16 | RADIOLOGY REPORT (SQ) ---
CT HEAD WITHOUT IV CONTRAST CLINICAL STATEMENT: trauma TECHNIQUE: Axial CT images from skull base to vertex without IV contrast. This exam was performed according to our departmental dose optimization program, and includes the following measures where applicable: automated exposure control, adjustment of the mAs and/or kVp according to patient size and/or exam, and an iterative reconstruction algorithm. COMPARISON: Unenhanced CT scan of the brain March 22, 2017 FINDINGS: There is no acute intracranial hemorrhage, mass, mass effect or abnormal extra-axial fluid collection. No evidence of an acute territorial infarct is identified. Ventricles and cisterns are patent. There is subtle focal volume loss in the left posterior temporal region consistent with the patient's previous infarction. No acute process is identified. Calvaria: The skull base and calvaria demonstrate no abnormality. Paranasal sinuses: Visualized portions of the orbits and paranasal sinuses are unremarkable. skull base: Unremarkable IMPRESSION: Mild volume loss and encephalomalacia In the left posterior temporal lobe. This correlates with the patient's previous stroke. No acute process. No hemorrhage or mass lesion.
[2020-02-20] MEDS ORDERED: LEVALBUTEROL HCL NEB 0.63 MG/3 ML AMPUL NEB PRN (22:29)
[2020-02-20] MEDS ORDERED: ONDANSETRON HCL INJ/PF 4 MG/2 ML SDV IV PRN (22:29)
[2020-02-20] MEDS ORDERED: LORAZEPAM INJ 2 MG/1 ML VIAL IV PRN (22:34)
[2020-02-20] MEDS ORDERED: ACETAMINOPHEN 650 MG SUPP.RECT PR PRN (22:34)
[2020-02-20] MEDS ORDERED: METOPROLOL TARTRATE PF/INJ 5 MG/5 ML SDV IV PRN (22:34)
[2020-02-20] MEDS ORDERED: GUAIFENESIN SYRP 200 MG/10 ML UDC PO PRN (22:34)
[2020-02-20] MEDS ORDERED: HYDRALAZINE HCL INJ/PF 20 MG/1 ML SDV IV PRN (22:34)
[2020-02-20] MEDS ORDERED: FAMOTIDINE INJ/PF 20 MG/2 ML SDV IV ONE (23:15)
[2020-02-20] MEDS: POTASSI CL 20 MEQ/D5NS 1L 20 MEQ/1,000 ML RTUINJ IV PRN (23:29)
--- NOTE | 2020-02-21 05:06 | PDOC H&P ---
History of Present Illness Admission Date/PCP: 02/20/2020 22:06 FADI ESCOBAR PA-C Patient complains of: Altered mental status History of Present Illness: LM COOLEY is a 59 year old female who presented to the emergency room after being found, this afternoon, by her boyfriend lying on the floor at home being poorly responsive. The patient has altered mental status with confusion and stupor, this being unable to contribute to her medical information. There was no evidence of attempted self injury at the scene and the patient was noted by the emergency room physician to have a bruise of her left hip and there was evidence of a small amount of bleeding from her nose. The CT scan of patient's head done in the emergency room showed no acute processes or injuries. Patient was subsequently admitted to the hospital for further evaluation and treatment. Past Medical History Past Medical History: Due to the patient's altered mental status with confusion and stupor her past medical history, past surgical history, social history and family history are obtained from the best available reliable source. Cardiac Medical History: Reports: Coronary Artery Disease, Hyperlipidema Pulmonary Medical History: Reports: Chronic Obstructive Pulmonary Disease (COPD) Denies: Asthma, Bronchitis, Pneumonia EENT Medical History: Denies: Cataracts, Ears - Hearing aids Neurological Medical History: Reports: Ischemic CVA, Seizures - With alcohol withdrawal Denies: Hemorrhagic CVA Endocrine Medical History: Denies: Diabetes Mellitus Type 1, Diabetes Mellitus Type 2, Hyperthyroidism, Hypothyroidism, Obesity Renal/ Medical History: Denies: Chronic Kidney Disease, Nephrolithiasis Malignancy Medical History: Reports: None GI Medical History: Reports: Gastroesophageal Reflux Disease Denies: Cirrhosis, Hepatitis Musculoskeltal Medical History: Reports: Arthritis - Chronic neck and back pain Denies: Gout Skin Medical History: Denies: Eczema, Psoriasis Psychiatric Medical History: Reports: Alcohol Dependency, Bipolar Disorder, Depression, General Anxiety Disorder, Tobacco Dependency Denies: Substance Abuse Traumatic Medical History: Reports: None Hematology: Denies: Anemia, Bleeding Tendencies Infectious Medical History: Reports: None Past Surgical History Past Surgical History: Due to the patient's altered mental status with confusion and stupor her past medical history, past surgical history, social history and family history are obtained from the best available reliable source. Past Surgical History: Reports: Orthopedic Surgery - discectomy 1998, Tubal Ligation Social History Information Source: [facility] Records Lives with: Alone Smoking Status: Former Smoker Electronic Cigarette use?: No Frequency of Alcohol Use: None Hx Recreational Drug Use: No Drugs: None Hx Prescription Drug Abuse: No Past Social History Note: Due to the patient's altered mental status with confusion and stupor her past medical history, past surgical history, social history and family history are obtained from the best available reliable source. - Advance Directive Resuscitation Status: Full Code Surrogate healthcare decision maker:: Casper Palacios Family History Family History: CAD, Malignancy. denies: CVA Family History: Due to the patient's altered mental status with confusion and stupor her past medical history, past surgical history, social history and family history are obtained from the best available reliable source. Parental Family History Reviewed: Yes Children Family History Reviewed: No Sibling(s) Family History Reviewed.: Yes Medication/Allergy Home Medications: Omeprazole 40 mg PO DAILY 07/06/15 Simvastatin 20 mg PO QHS 03/06/17 Zolpidem Tartrate [Ambien] 10 mg PO QHS 03/06/17 Fluticasone Propion/Salmeterol [[place] 250-50 Inhub] 1 each IH BID 01/10/20 Tizanidine HCl [Zanaflex 4 mg Tablet] 4 mg PO Q8HP PRN 01/10/20 Amlodipine Besylate [Norvasc 5 mg Tablet] 5 mg PO DAILY 02/09/20 Aspirin [Ecotrin 81 mg EC Tablet] 81 mg PO QHS #30 tabec 02/16/20 Divalproex Sodium [Depakote Er 250 Mg Tablet] 250 mg PO Q12 #60 tab.sr.24h 02/16/20 Fluticasone Propionate [Flonase Nasal [place] 50 Mcg/[place] 16 gm] 1 spray NASL BID #1 spray.pump 02/16/20 Potassium Chloride 40 meq PO DAILY 15 Days #30 tablet.er 02/16/20 Propranolol HCl [Inderal 20 mg Tablet] 20 mg PO Q8 #90 tablet 02/16/20 Allergies/Adverse Reactions: No Known Drug Allergies Allergy (Severe, Verified 03/06/17 10:27) Review of Systems ROS unobtainable: Due to mental status - Confusion and stupor Physical Exam Vital Signs: Temp Pulse Resp BP Pulse Ox 99.7 F 102 H 34 H 131/55 H 94 02/20/20 18:50 02/20/20 18:50 02/20/20 21:00 02/20/20 19:12 02/20/20 19:12 Intake & Output 02/18/20 02/19/20 02/20/20 23:59 23:59 23:59 Weight 66.4 kg General appearance: PRESENT: no acute distress, other - Patient is very slow to respond to verbal stimuli and is confused. Head exam: PRESENT: atraumatic, normocephalic Eye exam: PRESENT: conjunctiva pink. ABSENT: conjunctival injection, scleral icterus Ear exam: PRESENT: normal external ear exam. ABSENT: bleeding, drainage Mouth exam: PRESENT: dry mucosa, neck supple Neck exam: ABSENT: thyromegaly, tracheal deviation Respiratory exam: PRESENT: clear to auscultation [place], symmetrical, unlabored Cardiovascular exam: PRESENT: RRR. ABSENT: clicks, gallop, rubs Pulses: PRESENT: normal radial pulses, normal dorsalis pedis pul Vascular exam: PRESENT: normal capillary refill. ABSENT: pallor GI/Abdominal exam: PRESENT: normal bowel sounds, soft Rectal exam: PRESENT: deferred Extremities exam: ABSENT: joint swelling, pedal edema Musculoskeletal exam: ABSENT: deformity, dislocation Neurological exam: PRESENT: altered - Stuporous, other - Confused Psychiatric exam: PRESENT: other - Stuporous and confused Skin exam: PRESENT: dry, intact, warm. ABSENT: jaundice, rash, urticaria Results Laboratory Results: 02/20/20 19:30 02/20/20 19:30 02/20/20 02/20/20 02/20/20 19:30 19:30 19:50 WBC 12.5 H RBC 4.03 Hgb 11.3 L Hct 34.5 L MCV 86 MCH 28.0 MCHC 32.6 RDW 15.3 H Plt Count 372 Seg Neutrophils % 76.6 Sodium 135.3 L Potassium 3.5 L Chloride 101 Carbon Dioxide 28 Anion Gap 6 BUN 10 Creatinine 0.60 Est GFR ( Amer) > 60 Glucose 143 H Calcium 8.9 Magnesium 2.1 Total Bilirubin 0.3 AST 40 H Alkaline Phosphatase 81 Total Protein 6.7 Albumin 3.2 L Urine Color COLORLESS Urine Appearance CLEAR Urine pH 9.0 Ur Specific [place] 1.001 Urine Protein NEGATIVE Urine Glucose (UA) NEGATIVE Urine Ketones NEGATIVE Urine Blood NEGATIVE Urine Nitrite NEGATIVE Ur Leukocyte Esterase NEGATIVE Impressions: Head CT 07/09/20 20:22 IMPRESSION: Mild volume loss and encephalomalacia In the left posterior temporal lobe. This correlates with the patient's previous stroke. No acute process. No hemorrhage or mass lesion. Assessment and Plan - Diagnosis (1) Acute delirium Is this a current diagnosis for this admission?: Yes (2) Bipolar disorder Qualifiers: Active/Remission status: currently active Current bipolar episode type: depressed Current episode severity: severe Psychotic features: without psychotic features Qualified Code(s): F31.4 - Bipolar disorder, current episode depressed, severe, without psychotic features Is this a current diagnosis for this admission?: Yes (3) Coronary artery disease Qualifiers: Coronary Disease-Associated Artery/Lesion type: [place] artery [place] vs. transplanted heart: [place] heart Associated angina: without angina Qualified Code(s): I25.10 - Atherosclerotic heart disease of [place] coronary artery without angina pectoris Is this a current diagnosis for this admission?: Yes (4) Hyperlipidemia Qualifiers: Hyperlipidemia type: unspecified Qualified Code(s): E78.5 - Hyperlipidemia, unspecified Is this a current diagnosis for this admission?: Yes - Plan Summary Summary: Patient will be admitted to the medical floor on telemetry where she will receive routine supportive and symptomatic cares. She will initially be treated with D5 normal saline with 20 mEq of potassium chloride per liter at 167 mL/h. Neuro checks will be performed every 4 hours. Patient will receive Ativan 1 mg IV every 4 hours as needed for control of anxiety or restlessness. CBCs, metabolic profiles, magnesium levels and additional laboratory and/or rad iographic evaluations will be obtained as appropriate. She will receive a cardiac diet when she is able to take oral nutrition. - Time Time Spent with patient: Less than 15 minutes Medications reviewed and adjusted accordingly: Yes Anticipated discharge: SNF - Inpatient Certification Based on my medical assessment, after consideration of the patient's comorbidities, presenting symptoms, or acuity I expect that the services needed warrant INPATIENT care.: Yes I certify that my determination is in accordance with my understanding of Medicare's requirements for reasonable and necessary INPATIENT services [42 CFR 412.3e].: Yes Medical Necessity: Need Close Monitoring Due to Risk of Patient Decompensation, Need for Neurological Checks, Risk of Complication if Not Cared For in Hospital
[2020-02-21] MEDS: HEPARIN SOD (PORCINE) 5,000 UNIT/ML 1 ML VIAL SUBCUT SCH ×3 (05:50→21:31)
[2020-02-21 06:45] LABS: HEMATOCRIT 32.4 % (36.0-47.0); HEMOGLOBIN 10.8 g/dL (12.0-15.5); MEAN CORPUSCULAR HEMOGLOBIN 28.9 pg (27.0-33.4); MEAN CORPUSCULAR HGB CONC 33.4 g/dL (32.0-36.0); MEAN CORPUSCULAR VOLUME 87 fl (80-97); PLATELET COUNT 324 10^3/uL (150-450); RED BLOOD COUNT 3.74 10^6/uL (3.72-5.28); RED CELL DISTRIBUTION WIDTH 15.5 % (11.5-14.0); WHITE BLOOD COUNT 9.6 10^3/uL (4.0-10.5)
[2020-02-21 06:58] LABS: ANION GAP 7 (5-19); BLOOD UREA NITROGEN 6 mg/dL (7-20); CALCIUM 8.8 mg/dL (8.4-10.2); CARBON DIOXIDE 26 mmol/L (22-30); CHLORIDE 109 mmol/L (98-107); CHOLESTEROL 194.09 mg/dL (0-200); CREATINE KINASE 332 U/L (30-135); GLUCOSE 152 mg/dL (75-110); POTASSIUM 3.8 mmol/L (3.6-5.0); TRIGLYCERIDES 222 mg/dL (<150)
[2020-02-21 07:09] LABS: DIRECT LDL 123 mg/dL (<100)
[2020-02-21 07:10] LABS: VLDL CHOLESTEROL 44.4 mg/dL (10-31)
[2020-02-21] MEDS: POTASSI CL 20 MEQ/D5NS 1L 20 MEQ/1,000 ML RTUINJ IV PRN (07:38)
[2020-02-21] MEDS ORDERED: DEXTROSE 5%-1/2 NORMAL SALINE 1,000 ML IV PRN (08:34)
[2020-02-21] MEDS ORDERED: FAMOTIDINE INJ/PF 20 MG/2 ML SDV IV SCH (10:00)
[2020-02-21] MEDS: AMLODIPINE BESYLATE 5 MG TABLET PO SCH (10:30)
[2020-02-21] MEDS: DIVALPROEX SODIUM 250 MG TAB.SR.24H PO SCH ×2 (10:30→21:30)
[2020-02-21] MEDS: ASPIRIN 81 MG TABLET, ENT COATED PO SCH (10:30)
[2020-02-21] MEDS: POTASSIUM CHLORIDE 10 MEQ TABLET.ER PO SCH (10:30)
[2020-02-21] MEDS: FLUTICASONE NASAL SPRAY 50 MCG/SPRY 120 SPRAY/16 GM NASL SCH ×2 (10:31→21:30)
[2020-02-21] MEDS ORDERED: ALBUTEROL SULFATE 0.083% NEB 2.5 MG/3 ML AMPUL NEB PRN (12:21)
--- NOTE | 2020-02-21 12:39 | PDOC PROGRESS REPORT ---
Subjective Progress Note for:: 02/21/20 Subjective:: Upon further conversation with patient today, patient states that she fell on the floor because she blacked out. States that she took her psychiatric medications. States that she took her lithium and risperidone. I instructed patient that these medications have been discontinued and that she was not supposed to resume taking them upon discharge home. She denies any dizziness right now. States that she is thirsty. Reason For Visit: ACUTE DELIRIUM Physical Exam Vital Signs: Temp Pulse Resp BP Pulse Ox 97.5 F 93 20 152/63 H 99 02/21/20 11:49 02/21/20 11:49 02/21/20 11:49 02/21/20 11:49 02/21/20 11:49 Intake & Output 02/20/20 02/21/20 02/22/20 06:59 06:59 06:59 Intake Total 1200 Balance 1200 Weight 63.3 kg General appearance: PRESENT: no acute distress, cooperative Neck exam: ABSENT: JVD Respiratory exam: PRESENT: clear to auscultation [place], unlabored. ABSENT: tachypnea, wheezes Cardiovascular exam: PRESENT: RRR, +S1, +S2. ABSENT: tachycardia GI/Abdominal exam: PRESENT: soft. ABSENT: rebound, rigid, tenderness Neurological exam: PRESENT: alert, awake, oriented to person, oriented to place, other - Awake and responding appropriately to questions Psychiatric exam: PRESENT: flat affect Skin exam: ABSENT: jaundice Results Laboratory Results: 02/21/20 05:44 02/21/20 05:44 02/20/20 02/20/20 02/20/20 19:30 19:30 19:50 WBC 12.5 H RBC 4.03 Hgb 11.3 L Hct 34.5 L MCV 86 MCH 28.0 MCHC 32.6 RDW 15.3 H Plt Count 372 Seg Neutrophils % 76.6 Sodium 135.3 L Potassium 3.5 L Chloride 101 Carbon Dioxide 28 Anion Gap 6 BUN 10 Creatinine 0.60 Est GFR ( Amer) > 60 Glucose 143 H Calcium 8.9 Magnesium 2.1 Total Bilirubin 0.3 AST 40 H Alkaline Phosphatase 81 Total Protein 6.7 Albumin 3.2 L Triglycerides Cholesterol LDL Cholesterol Direct VLDL Cholesterol HDL Cholesterol Urine Color COLORLESS Urine Appearance CLEAR Urine pH 9.0 Ur Specific [place] 1.001 Urine Protein NEGATIVE Urine Glucose (UA) NEGATIVE Urine Ketones NEGATIVE Urine Blood NEGATIVE Urine Nitrite NEGATIVE Ur Leukocyte Esterase NEGATIVE 02/21/20 02/21/20 05:44 05:44 WBC 9.6 RBC 3.74 Hgb 10.8 L Hct 32.4 L MCV 87 MCH 28.9 MCHC 33.4 RDW 15.5 H Plt Count 324 Seg Neutrophils % Sodium 141.9 Potassium 3.8 Chloride 109 H Carbon Dioxide 26 Anion Gap 7 BUN 6 L Creatinine 0.55 Est GFR ( Amer) > 60 Glucose 152 H Calcium 8.8 Magnesium 2.2 Total Bilirubin AST Alkaline Phosphatase Total Protein Albumin Triglycerides 222 H Cholesterol 194.09 LDL Cholesterol Direct 123 H VLDL Cholesterol 44.4 H HDL Cholesterol 40 Urine Color Urine Appearance Urine pH Ur Specific [place] Urine Protein Urine Glucose (UA) Urine Ketones Urine Blood Urine Nitrite Ur Leukocyte Esterase 02/21/20 02/21/20 02/21/20 05:44 05:44 11:12 Creatine Kinase 332 H Troponin I 0.196 0.143 Impressions: Head CT 02/20/20 20:22 IMPRESSION: Mild volume loss and encephalomalacia In the left posterior temporal lobe. This correlates with the patient's previous stroke. No acute process. No hemorrhage or mass lesion. Assessment and Plan - Diagnosis (1) Toxic metabolic encephalopathy Is this a current diagnosis for this admission?: Yes Plan: Patient seems to present after fall and states that she blacked out. During patient's last prolonged stay in the hospital, she never had any episodes of loss of consciousness and this only recurred after being discharged home. I think that her presentation this time was likely secondary to polypharmacy and poor medication management. Feel the patient is not able to adequately care for herself in terms of medication management as she went home and started taking her previous psych medications including lithium which I had thoroughly discussed with her on her prior visit that these medications have been discontinued. Her boyfriend typically cares for her at home and helps with managing her meds but he himself is recovering from an injury and is unable to check up on her as often. Given the situation, patient may be better served by being in an assisted living facility or SNF where adequate medication management can be performed. She will also benefit from physical therapy as well. (2) Diabetes insipidus, nephrogenic Is this a current diagnosis for this admission?: Yes Plan: Secondary to retirement lithium use. [place] has been discontinued on prior hospitalization. Will discontinue IV fluids and allow patient to guide her sodium correction with her thirst mechanism. This has proved adequate for patient in preventing hypernatremia in the past. She does require high volumes of water consumption. Hydrochlorothiazide. (3) History of CVA (cerebrovascular accident) Is this a current diagnosis for this admission?: Yes Plan: Continue aspirin and simvastatin (4) Bipolar disorder Qualifiers: Active/Remission status: currently active Current bipolar episode type: depressed Current episode severity: severe Psychotic features: without psychotic features Qualified Code(s): F31.4 - Bipolar disorder, current episode depressed, severe, without psychotic features Is this a current diagnosis for this admission?: Yes Plan: As documented during patient's prior hospitalization, patient was seen and evaluated by psych team and Dr. Josue Mcdonald recommended discontinuing all her other psych medications and only placing patient on propanolol and Depakote. Patient follows with Dr. Riley Bourgeois in the outpatient setting. Continue propanolol and Depakote. (5) Hypokalemia Is this a current diagnosis for this admission?: Yes Plan: Long-term effect of her lithium. [place] should remain discontinued. Placed on potassium chloride supplements. Will monitor BMP. (6) Muscle contracture Qualifiers: Muscle contracture area: multiple sites Qualified Code(s): M62.49 - Contracture of muscle, multiple sites Is this a current diagnosis for this admission?: Yes Plan: Secondary to her previous stroke. Involves her right hand and her right knee. PRN tizanidine for muscle spasms. (7) Hypertension Qualifiers: Hypertension type: essential hypertension Qualified Code(s): I10 - Essential (primary) hypertension Is this a current diagnosis for this admission?: Yes Plan: Amlodipine 5 mg daily. (8) Hyperlipidemia Qualifiers: Hyperlipidemia type: unspecified Qualified Code(s): E78.5 - Hyperlipidemia, unspecified Is this a current diagnosis for this admission?: Yes Plan: LDL mildly elevated on lipid panel. Continue simvastatin. (9) Elevated troponin Is this a current diagnosis for this admission?: Yes Plan: Seems to be showing flat trend. No need to trend further. Denies any chest pain or shortness of breath. (10) Poor social situation Is this a current diagnosis for this admission?: Yes Plan: Plan as above - Time Time Spent with patient: 15-24 minutes
[2020-02-21] MEDS: PROPRANOLOL HCL 20 MG TABLET PO SCH ×2 (15:14→21:30)
[2020-02-21] MEDS: HYDROCHLOROTHIAZIDE 12.5 MG TABLET PO SCH (15:17)
[2020-02-21] MEDS: ACETAMINOPHEN 325 MG TABLET PO PRN ×2 (15:19→21:39)
[2020-02-21] MEDS: PANTOPRAZOLE SODIUM 20 MG TABLET.DR PO SCH (18:13)
[2020-02-21] MEDS: SIMVASTATIN 10 MG TABLET PO SCH (21:30)
[2020-02-21] MEDS: TIZANIDINE HCL 4 MG TABLET PO PRN (21:39)
[2020-02-22] MEDS ORDERED: NORMAL SALINE 1000 ML 1,000 ML IV PRN (00:47)
[2020-02-22] MEDS: PROPRANOLOL HCL 20 MG TABLET PO SCH ×3 (05:04→21:10)
[2020-02-22] MEDS: HEPARIN SOD (PORCINE) 5,000 UNIT/ML 1 ML VIAL SUBCUT SCH ×3 (05:07→21:02)
[2020-02-22] MEDS: PANTOPRAZOLE SODIUM 20 MG TABLET.DR PO SCH ×2 (05:07→10:06)
[2020-02-22 06:31] LABS: HEMATOCRIT 36.8 % (36.0-47.0); HEMOGLOBIN 11.9 g/dL (12.0-15.5); MEAN CORPUSCULAR HEMOGLOBIN 28.2 pg (27.0-33.4); MEAN CORPUSCULAR HGB CONC 32.3 g/dL (32.0-36.0); MEAN CORPUSCULAR VOLUME 87 fl (80-97); PLATELET COUNT 303 10^3/uL (150-450); RED BLOOD COUNT 4.23 10^6/uL (3.72-5.28); RED CELL DISTRIBUTION WIDTH 15.9 % (11.5-14.0); WHITE BLOOD COUNT 11.1 10^3/uL (4.0-10.5)
[2020-02-22 06:34] LABS: ANION GAP 7 (5-19); BLOOD UREA NITROGEN 6 mg/dL (7-20); CALCIUM 8.8 mg/dL (8.4-10.2); CARBON DIOXIDE 23 mmol/L (22-30); CHLORIDE 109 mmol/L (98-107); GLUCOSE 118 mg/dL (75-110); POTASSIUM 3.4 mmol/L (3.6-5.0)
[2020-02-22] MEDS: AMLODIPINE BESYLATE 5 MG TABLET PO SCH (09:54)
[2020-02-22] MEDS: HYDROCHLOROTHIAZIDE 12.5 MG TABLET PO SCH (09:54)
[2020-02-22] MEDS: POTASSIUM CHLORIDE 10 MEQ TABLET.ER PO SCH (09:54)
[2020-02-22] MEDS: ASPIRIN 81 MG TABLET, ENT COATED PO SCH (09:54)
[2020-02-22] MEDS: ACETAMINOPHEN 325 MG TABLET PO PRN ×2 (09:55→18:40)
[2020-02-22] MEDS: DIVALPROEX SODIUM 250 MG TAB.SR.24H PO SCH ×2 (09:55→21:02)
[2020-02-22] MEDS ORDERED: AMLODIPINE BESYLATE 5 MG TABLET PO SCH (10:00)
[2020-02-22] MEDS: FLUTICASONE/VILANTEROL 100-25 MCG/DOSE IH SCH (10:04)
[2020-02-22] MEDS: FLUTICASONE NASAL SPRAY 50 MCG/SPRY 120 SPRAY/16 GM NASL SCH ×2 (10:05→21:02)
--- NOTE | 2020-02-22 15:17 | PDOC PROGRESS REPORT ---
Subjective Progress Note for:: 02/22/20 Subjective:: Patient feels well today. Drank a lot of water yesterday. Sodium level is normal this morning. Reason For Visit: ACUTE DELIRIUM Physical Exam Vital Signs: Temp Pulse Resp BP Pulse Ox 97.6 F 67 16 100/47 L 96 02/22/20 10:55 02/22/20 12:19 02/22/20 12:19 02/22/20 10:55 02/22/20 12:19 Intake & Output 02/21/20 02/22/20 02/23/20 06:59 06:59 06:59 Intake Total 1200 61827 Output Total 7450 Balance 1200 2920 Weight 63.3 kg 63.8 kg General appearance: PRESENT: no acute distress, cooperative Neck exam: ABSENT: JVD Respiratory exam: PRESENT: clear to auscultation [place], unlabored Musculoskeletal exam: PRESENT: ambulatory Neurological exam: PRESENT: alert, awake, oriented to person, oriented to place, oriented to time Results Laboratory Results: 02/22/20 05:29 02/22/20 05:29 02/22/20 02/22/20 05:29 05:29 WBC 11.1 H RBC 4.23 Hgb 11.9 L Hct 36.8 MCV 87 MCH 28.2 MCHC 32.3 RDW 15.9 H Plt Count 303 Sodium 138.7 Potassium 3.4 L Chloride 109 H Carbon Dioxide 23 Anion Gap 7 BUN 6 L Creatinine 0.60 Est GFR ( Amer) > 60 Glucose 118 H Calcium 8.8 Magnesium 2.2 02/21/20 02/21/20 02/21/20 05:44 05:44 11:12 Creatine Kinase 332 H Troponin I 0.196 0.143 Impressions: Head CT 02/20/20 20:22 IMPRESSION: Mild volume loss and encephalomalacia In the left posterior temporal lobe. This correlates with the patient's previous stroke. No acute process. No hemorrhage or mass lesion. Assessment and Plan - Diagnosis (1) Toxic metabolic encephalopathy Is this a current diagnosis for this admission?: Yes Plan: Patient seems to present after fall and states that she blacked out. During patient's last prolonged stay in the hospital, she never had any episodes of loss of consciousness and this only recurred after being discharged home. I think that her presentation this time was likely secondary to polypharmacy and poor medication management. Encephalopathy is currently resolved. Feel the patient is not able to adequately care for herself in terms of medication management as she went home and started taking her previous psych medications including lithium which I had thoroughly discussed with her on her prior visit that these medications have been discontinued. Her boyfriend typically cares for her at home and helps with managing her meds but he himself is recovering from an injury and is unable to check up on her as often. Given the situation, patient may be better served by being in an assisted living facility or SNF where adequate medication management can be performed. She will also benefit from physical therapy as well. (2) Diabetes insipidus, nephrogenic Is this a current diagnosis for this admission?: Yes Plan: Secondary to nursing home lithium use. [place] has been discontinued on prior hospitalization. Will allow patient to guide her sodium correction with her thirst mechanism. This has proved adequate for patient in preventing hypernatremia in the past. She does require high volumes of water consumption. Hydrochlorothiazide. (3) History of CVA (cerebrovascular accident) Is this a current diagnosis for this admission?: Yes Plan: Continue aspirin and simvastatin. Patient is ambulatory. (4) Bipolar disorder Qualifiers: Active/Remission status: currently active Current bipolar episode type: depressed Current episode severity: severe Psychotic features: without psychotic features Qualified Code(s): F31.4 - Bipolar disorder, current episode depressed, severe, without psychotic features Is this a current diagnosis for this admission?: Yes (5) Hypokalemia Is this a current diagnosis for this admission?: Yes (6) Muscle contracture Qualifiers: Muscle contracture area: multiple sites Qualified Code(s): M62.49 - Contr acture of muscle, multiple sites Is this a current diagnosis for this admission?: Yes (7) Hypertension Qualifiers: Hypertension type: essential hypertension Qualified Code(s): I10 - Essential (primary) hypertension Is this a current diagnosis for this admission?: Yes (8) Hyperlipidemia Qualifiers: Hyperlipidemia type: unspecified Qualified Code(s): E78.5 - Hyperlipidemia, unspecified Is this a current diagnosis for this admission?: Yes (9) Elevated troponin Is this a current diagnosis for this admission?: Yes (10) Poor social situation Is this a current diagnosis for this admission?: Yes Plan: Plan as above - Time Time Spent with patient: Less than 15 minutes
[2020-02-22] MEDS: TIZANIDINE HCL 4 MG TABLET PO PRN (21:02)
[2020-02-22] MEDS: SIMVASTATIN 10 MG TABLET PO SCH (21:02)
[2020-02-23] MEDS: ACETAMINOPHEN 325 MG TABLET PO PRN ×2 (04:07→13:07)
[2020-02-23] MEDS: PROPRANOLOL HCL 20 MG TABLET PO SCH ×2 (05:39→14:05)
[2020-02-23] MEDS: PANTOPRAZOLE SODIUM 20 MG TABLET.DR PO SCH (05:43)
[2020-02-23] MEDS: HEPARIN SOD (PORCINE) 5,000 UNIT/ML 1 ML VIAL SUBCUT SCH ×2 (05:43→14:05)
[2020-02-23 06:20] LABS: HEMATOCRIT 30.5 % (36.0-47.0); HEMOGLOBIN 10.1 g/dL (12.0-15.5); MEAN CORPUSCULAR HEMOGLOBIN 28.5 pg (27.0-33.4); MEAN CORPUSCULAR HGB CONC 33.2 g/dL (32.0-36.0); MEAN CORPUSCULAR VOLUME 86 fl (80-97); PLATELET COUNT 365 10^3/uL (150-450); RED BLOOD COUNT 3.56 10^6/uL (3.72-5.28); RED CELL DISTRIBUTION WIDTH 15.4 % (11.5-14.0)
[2020-02-23 08:28] LABS: ANION GAP 8 (5-19); BLOOD UREA NITROGEN 7 mg/dL (7-20); CALCIUM 8.6 mg/dL (8.4-10.2); CARBON DIOXIDE 23 mmol/L (22-30); CHLORIDE 105 mmol/L (98-107); GLUCOSE 117 mg/dL (75-110); POTASSIUM 3.3 mmol/L (3.6-5.0)
[2020-02-23] MEDS: POTASSIUM CHLORIDE 10 MEQ TABLET.ER PO SCH (09:34)
[2020-02-23] MEDS: HYDROCHLOROTHIAZIDE 12.5 MG TABLET PO SCH (09:34)
[2020-02-23] MEDS: DIVALPROEX SODIUM 250 MG TAB.SR.24H PO SCH (09:35)
[2020-02-23] MEDS: AMLODIPINE BESYLATE 5 MG TABLET PO SCH (09:35)
[2020-02-23] MEDS: ASPIRIN 81 MG TABLET, ENT COATED PO SCH (09:35)
[2020-02-23] MEDS: FLUTICASONE/VILANTEROL 100-25 MCG/DOSE IH SCH (09:36)
[2020-02-23] MEDS: FLUTICASONE NASAL SPRAY 50 MCG/SPRY 120 SPRAY/16 GM NASL SCH (09:37)
--- NOTE | 2020-02-23 11:06 | PDOC DISCHARGE SUMMARY ---
Impression - Admit/DC Date/PCP Admission Date/Primary Care Provider: 02/20/20 22:29 FADI ESCOBAR PA-C Discharge Date: 02/23/20 - Discharge Diagnosis (1) Toxic metabolic encephalopathy Is this a current diagnosis for this admission?: Yes (2) Poor social situation Is this a current diagnosis for this admission?: Yes (3) Diabetes insipidus, nephrogenic Is this a current diagnosis for this admission?: Yes (4) History of CVA (cerebrovascular accident) Is this a current diagnosis for this admission?: Yes (5) Bipolar disorder Is this a current diagnosis for this admission?: Yes (6) Hypokalemia Is this a current diagnosis for this admission?: Yes (7) Muscle contracture Is this a current diagnosis for this admission?: Yes (8) Hypertension Is this a current diagnosis for this admission?: Yes (9) Hyperlipidemia Is this a current diagnosis for this admission?: Yes (10) Elevated troponin Is this a current diagnosis for this admission?: Yes - Additional Information Resuscitation Status: Full Code Discharge Diet: Regular Referrals: GLEN DIANA MD [NO [facility] MD] - FADI ESCOBAR PA-C [Primary Care Provider] - Home Medications: Omeprazole 40 mg PO DAILY 07/06/15 Simvastatin 20 mg PO QHS 03/06/17 Fluticasone Propion/Salmeterol [Wixela 250-50 Inhub] 1 puff IH BID 01/10/20 Tizanidine HCl [Zanaflex 4 mg Tablet] 4 mg PO Q8HP PRN 01/10/20 Amlodipine Besylate [Norvasc 5 mg Tablet] 5 mg PO DAILY 02/09/20 Aspirin [Ecotrin 81 mg EC Tablet] 81 mg PO QHS #30 tabec 02/16/20 Divalproex Sodium [Depakote ER 250 mg Tablet] 250 mg PO Q12 #60 tab.sr.24h 02/16/20 Fluticasone Propionate [Flonase Nasal [place] 50 Mcg/[place] 16 gm] 1 spray NASL BID #1 spray.pump 02/16/20 Potassium Chloride 40 meq PO DAILY 15 Days #30 tablet.er 02/16/20 Propranolol HCl [Inderal 20 mg Tablet] 20 mg PO Q8 #90 tablet 02/16/20 History of Present Illiness History of Present Illness: According to admitting provider: LM COOLEY is a 59 year old female who presented to the emergency room after being found, this afternoon, by her boyfriend lying on the floor at home being poorly responsive. The patient has altered mental status with confusion and stupor, this being unable to contribute to her medical information. There was no evidence of attempted self injury at the scene and the patient was noted by the emergency room physician to have a bruise of her left hip and there was evidence of a small amount of bleeding from her nose. The CT scan of patient's head done in the emergency room showed no acute processes or injuries. Patient was subsequently admitted to the hospital for further evaluation and treatment. Hospital Course Hospital Course: Patient was admitted after being found to be altered at home. Upon admission, head CT was done which was unremarkable just showing old findings of encephalomalacia in the region of her prior stroke but no acute findings. Serum alcohol level was negative and UDS was also negative. Valproic acid and lithium levels were also measured which were low. Patient however endorsed taking l ithium after being discharged even despite being counseled to stop her prior psychiatric medications. Suspect her altered mental status was likely due to toxic metabolic encephalopathy from polypharmacy. There is currently no evidence to suggest that patient was intentionally trying to harm herself. She denies suicidal or homicidal ideation. She does have a flat affect and does endorse moments of low and high energy which has been going on for several months to years due to bipolar disorder. Since patient has been in the hospital, her mental status has come back to her baseline and she is very much ambulatory often seen in the hallways ambulating freely and independently. I am concerned that patient has some cognitive impairment and may also forget the right meds to take. She does have a boyfriend who helps take care of her and I have spoken to him he states he will be checking up on her very often. Patient herself does have capacity to make her own decisions on my assessment. She was also cleared by psychiatry services about a week ago who stated that she did not need involuntary confinement. She is to continue taking her Depakote and propanolol only and follow-up with her psychiatrist Dr. Diana. Once again I have counseled her on the fact that her lithium and other psych meds that she was taking prior to her previous hospitalization have been discontinued. I dis cussed with meeting planner/manager social services about getting patient into assisted living or SNF and I was informed that patient does not meet qualification for assisted living and that her insurance declined SNF about a week ago during her prior hospitalization. Also informed the patient does not want to pay out of pocket for SNF or assisted living and has declined this for this reason and would like to be discharged home. Patient tells me she wants to go home and I will respect her wishes. I have discussed elaborately with her significant other who is her primary fish machine feeder and he will be very much involved in her care and monitoring. Patient states that she is not in communication with her daughter and that she prefers her primary contact be her significant other. I have asked meeting planner to set patient up with a home nurse, home health aide, and manager social services and to also file APS report so that APS can assess if she is capable of independent living. Physical Exam Vital Signs: Temp Pulse Resp BP Pulse Ox 97.5 F 80 20 109/41 L 98 02/23/20 07:40 02/23/20 07:40 02/23/20 07:40 02/23/20 07:40 02/23/20 07:40 Intake & Output 02/22/20 02/23/20 02/24/20 06:59 06:59 06:59 Intake Total 56343 2850 Output Total 7450 1000 Balance 2920 1850 Weight 63.8 kg 62.7 kg General appearance: PRESENT: no acute distress, cooperative Musculoskeletal exam: PRESENT: ambulatory Neurological exam: PRESENT: alert, awake, oriented to person, oriented to place, oriented to time, oriented to situation Psychiatric exam: PRESENT: flat affect. ABSENT: agitated, anxious, appropriate affect, homicidal ideation, suicidal ideation Focused psych exam: ABSENT: flight of ideas, internal stimuli, pressured speech, restlessness Results Laboratory Results: WBC 11.0 10^3/uL (4.0-10.5) H 02/23/20 05:59 RBC 3.56 10^6/uL (3.72-5.28) L 02/23/20 05:59 Hgb 10.1 g/dL (12.0-15.5) L 02/23/20 05:59 Hct 30.5 % (36.0-47.0) L 02/23/20 05:59 MCV 86 fl (80-97) 02/23/20 05:59 MCH 28.5 pg (27.0-33.4) 02/23/20 05:59 MCHC 33.2 g/dL (32.0-36.0) 02/23/20 05:59 RDW 15.4 % (11.5-14.0) H 02/23/20 05:59 Plt Count 365 10^3/uL (150-450) 02/23/20 05:59 Lymph % (Auto) 15.0 % (13-45) 02/20/20 19:30 [place] % (Auto) 7.8 % (3-13) 02/20/20 19:30 Eos % (Auto) 0.1 % (0-6) 02/20/20 19:30 Baso % (Auto) 0.5 % (0-2) 02/20/20 19:30 Absolute Neuts (auto) 9.6 10^3/uL (1.7-8.2) H 02/20/20 19:30 Absolute Lymphs (auto) 1.9 10^3/uL (0.5-4.7) 02/20/20 19:30 Absolute Monos (auto) 1.0 10^3/uL (0.1-1.4) 02/20/20 19:30 Absolute Eos (auto) 0.0 10^3/uL (0.0-0.6) 02/20/20 19:30 Absolute Basos (auto) 0.1 10^3/uL (0.0-0.2) 02/20/20 19:30 Seg Neutrophils % 76.6 % (42-78) 02/20/20 19:30 Sodium 135.5 mmol/L (137-145) L 02/23/20 05:59 Potassium 3.3 mmol/L (3.6-5.0) L 02/23/20 05:59 Chloride 105 mmol/L (98-107) 02/23/20 05:59 Carbon Dioxide 23 mmol/L (22-30) 02/23/20 05:59 Anion Gap 8 (5-19) 02/23/20 05:59 BUN 7 mg/dL (7-20) 02/23/20 05:59 Creatinine 0.56 mg/dL (0.52-1.25) 02/23/20 05:59 Est GFR ( Amer) > 60 (>60) 02/23/20 05:59 Est GFR (MDRD) Non-Af > 60 (>60) 02/23/20 05:59 Glucose 117 mg/dL (75-110) H 02/23/20 05:59 POC Glucose 141 mg/dL (70-110) H 02/20/20 20:02 Calcium 8.6 mg/dL (8.4-10.2) 02/23/20 05:59 Magnesium 2.2 mg/dL (1.6-2.3) 02/22/20 05:29 Total Bilirubin 0.3 mg/dL (0.2-1.3) 02/20/20 19:30 Direct Bilirubin 0.0 mg/dL (0.0-0.4) 02/20/20 19:30 Neonat Total Bilirubin Not Reportable 02/20/20 19:30 Neonat Direct Bilirubin Not Reportable 02/20/20 19:30 Neonat Indirect Bili Not Reportable 02/20/20 19:30 AST 40 U/L (14-36) H 02/20/20 19:30 ALT 21 U/L (<35) 02/20/20 19:30 Alkaline Phosphatase 81 U/L (38-126) 02/20/20 19:30 Creatine Kinase 332 U/L (30-135) H 02/21/20 05:44 Troponin I 0.143 ng/mL 02/21/20 11:12 Total Protein 6.7 g/dL (6.3-8.2) 02/20/20 19:30 Albumin 3.2 g/dL (3.5-5.0) L 02/20/20 19:30 Triglycerides 222 mg/dL (<150) H 02/21/20 05:44 Cholesterol 194.09 mg/dL (0-200) 02/21/20 05:44 LDL Cholesterol Direct 123 mg/dL (<100) H 02/21/20 05:44 VLDL Cholesterol 44.4 mg/dL (10-31) H 02/21/20 05:44 HDL Cholesterol 40 mg/dL (>40) 02/21/20 05:44 Urine Color COLORLESS 02/20/20 19:50 Urine Appearance CLEAR 02/20/20 19:50 Urine pH 9.0 (5.0-9.0) 02/20/20 19:50 Ur Specific [place] 1.001 02/20/20 19:50 Urine Protein NEGATIVE mg/dL (NEGATIVE) 02/20/20 19:50 Urine Glucose (UA) NEGATIVE mg/dL (NEGATIVE) 02/20/20 19:50 Urine Ketones NEGATIVE mg/dL (NEGATIVE) 02/20/20 19:50 Urine Blood NEGATIVE (NEGATIVE) 02/20/20 19:50 Urine Nitrite NEGATIVE (NEGATIVE) 02/20/20 19:50 Urine Bilirubin NEGATIVE (NEGATIVE) 02/20/20 19:50 Urine Urobilinogen NEGATIVE mg/dL (<2.0) 02/20/20 19:50 Ur Leukocyte Esterase NEGATIVE (NEGATIVE) 02/20/20 19:50 U Hyaline Cast (Auto) 1 /LPF 02/20/20 19:50 Urine Mucus (Auto) RARE /LPF 02/20/20 19:50 Urine Ascorbic Acid NEGATIVE (NEGATIVE) 02/20/20 19:50 Urine Opiates Screen NEGATIVE 02/20/20 19:50 Urine Methadone Screen NEGATIVE 02/20/20 19:50 Ur Barbiturates Screen NEGATIVE 02/20/20 19:50 Valproic Acid 11.0 ug/mL (50.0-120.0) L 02/20/20 19:30 Ur Phencyclidine Scrn NEGATIVE 02/20/20 19:50 Ur Amphetamines Screen NEGATIVE 02/20/20 19:50 U Benzodiazepines Scrn NEGATIVE 02/20/20 19:50 [place] < 0.2 mEq/L (0.6-1.2) L 02/20/20 19:30 Urine Cocaine Screen NEGATIVE 02/20/20 19:50 U Marijuana (THC) Screen NEGATIVE 02/20/20 19:50 Serum Alcohol < 10 mg/dL (NONE DETECTED) 02/20/20 19:30 02/21/20 02/21/20 05:44 11:12 Troponin I 0.196 0.143 Impressions: Head CT 02/20/20 20:22 IMPRESSION: Mild volume loss and encephalomalacia In the left posterior temporal lobe. This correlates with the patient's previous stroke. No acute process. No hemorrhage or mass lesion. Plan Time Spent: Less than 30 Minutes Stroke Is this a Stroke Patient?: No Acute Heart Failure - Is this a Heart Failure Patient?: No
[2020-02-23 15:21] VITALS: BP 101/54
== END 2020-02-23 15:45 | disposition home health service (06) | DRG 917 ==
LOC: ER 18:24 → EH 22:15 → OBSVTOIN 22:29 → 4S 02-21 02:48
PROVIDERS: ADMIT Emergency Medicine; ATTEND Internal Medicine
DX: T43.595A Adverse effect of other antipsychotics and neuroleptics, initial encounter (principal); G92 Toxic encephalopathy; N25.1 Nephrogenic diabetes insipidus; R41.0 Disorientation, unspecified; I25.10 Atherosclerotic heart disease of native coronary artery without angina pectoris; E78.00 Pure hypercholesterolemia, unspecified; J44.9 Chronic obstructive pulmonary disease, unspecified; K21.9 Gastro-esophageal reflux disease without esophagitis; E87.6 Hypokalemia; I10 Essential (primary) hypertension; M62.49 Contracture of muscle, multiple sites; F41.8 Other specified anxiety disorders; F31.9 Bipolar disorder, unspecified; Y92.018 Other place in single-family (private) house as the place of occurrence of the external cause
CPT/HCPCS: 36415; 70450; 80048; 80053; 80061; 80164; 80178; 80307; 81001; 82550; 82962; 83735; 84484; 85025; 85027; 93005; 93010; 96374; 99285; J1644; J3480; J3490; J7030; S0028

== ENCOUNTER → 2020-03-19 | Outpatient (CLI) | payer MEDICARE ==
[2020-03-19 13:14] LABS: ABSOLUTE BASOPHILS # (AUTO) 0.1 10^3/uL (0.0-0.2); ABSOLUTE EOSINOPHILS # (AUTO) 0.1 10^3/uL (0.0-0.6); ABSOLUTE LYMPHOCYTES (AUTO) 2.2 10^3/uL (0.5-4.7); ABSOLUTE NEUT (AUTO) 5.2 10^3/uL (1.7-8.2); BASOPHILS % (AUTO) 0.7 % (0-2); EOSINOPHILS % (AUTO) 0.9 % (0-6); HEMATOCRIT 33.2 % (36.0-47.0); LYMPHOCYTES % (AUTO) 25.7 % (13-45); MEAN CORPUSCULAR HEMOGLOBIN 28.5 pg (27.0-33.4); MEAN CORPUSCULAR HGB CONC 33.1 g/dL (32.0-36.0); MEAN CORPUSCULAR VOLUME 86 fl (80-97); MONOCYTES % (AUTO) 11.9 % (3-13); PLATELET COUNT 327 10^3/uL (150-450); RED BLOOD COUNT 3.86 10^6/uL (3.72-5.28); RED CELL DISTRIBUTION WIDTH 15.8 % (11.5-14.0); SEGMENTED NEUTROPHILS % (AUTO) 60.8 % (42-78); TOTAL CELLS COUNTED % (AUTO) 100 %; WHITE BLOOD COUNT 8.6 10^3/uL (4.0-10.5)
[2020-03-19 13:39] LABS: ALBUMIN 3.6 g/dL (3.5-5.0); ALKALINE PHOSPHATASE 74 U/L (38-126); ANION GAP 9 (5-19); ASPARTATE AMINO TRANSFERASE 21 U/L (14-36); BILIRUBIN,TOTAL 0.2 mg/dL (0.2-1.3); BLOOD UREA NITROGEN 15 mg/dL (7-20); CALCIUM 8.9 mg/dL (8.4-10.2); CARBON DIOXIDE 23 mmol/L (22-30); CHLORIDE 105 mmol/L (98-107); CHOLESTEROL 135.74 mg/dL (0-200); GLUCOSE 105 mg/dL (75-110); POTASSIUM 4.7 mmol/L (3.6-5.0); TRIGLYCERIDES 256 mg/dL (<150)
[2020-03-19 13:59] LABS: DIRECT LDL 65 mg/dL (<100)
[2020-03-19 14:02] LABS: VLDL CHOLESTEROL 51.2 mg/dL (10-31)
== END ==
LOC: WELLCARE 10:55
PROVIDERS: ATTEND Psychiatry & Neurology Psychiatry
DX: E11.9 Type 2 diabetes mellitus without complications (principal); F31.9 Bipolar disorder, unspecified
CPT/HCPCS: 80053; 80061; 80164; 84443; 85025

== ENCOUNTER 2020-07-22 20:32 | Emergency (ER) | payer MEDICAID, MEDICARE ==
[2020-07-22 21:16] LABS: ABSOLUTE EOSINOPHILS # (AUTO) 0.1 10^3/uL (0.0-0.6); ABSOLUTE LYMPHOCYTES (AUTO) 2.5 10^3/uL (0.5-4.7); ABSOLUTE MONOCYTES (AUTO) 0.7 10^3/uL (0.1-1.4); ABSOLUTE NEUT (AUTO) 5.1 10^3/uL (1.7-8.2); BASOPHILS % (AUTO) 0.4 % (0-2); EOSINOPHILS % (AUTO) 1.5 % (0-6); HEMATOCRIT 35.4 % (36.0-47.0); HEMOGLOBIN 11.9 g/dL (12.0-15.5); LYMPHOCYTES % (AUTO) 30.2 % (13-45); MEAN CORPUSCULAR HEMOGLOBIN 30.1 pg (27.0-33.4); MEAN CORPUSCULAR HGB CONC 33.7 g/dL (32.0-36.0); MEAN CORPUSCULAR VOLUME 89 fl (80-97); MONOCYTES % (AUTO) 7.9 % (3-13); PLATELET COUNT 244 10^3/uL (150-450); RED BLOOD COUNT 3.96 10^6/uL (3.72-5.28); RED CELL DISTRIBUTION WIDTH 16.5 % (11.5-14.0); TOTAL CELLS COUNTED % (AUTO) 100 %; WHITE BLOOD COUNT 8.4 10^3/uL (4.0-10.5)
[2020-07-22 21:43] LABS: ALBUMIN 3.4 g/dL (3.5-5.0); ALKALINE PHOSPHATASE 48 U/L (38-126); ANION GAP 10 (5-19); ASPARTATE AMINO TRANSFERASE 16 U/L (14-36); BILIRUBIN,DIRECT 0.1 mg/dL (0.0-0.4); BILIRUBIN,TOTAL 0.3 mg/dL (0.2-1.3); BLOOD UREA NITROGEN 8 mg/dL (7-20); CALCIUM 8.5 mg/dL (8.4-10.2); CARBON DIOXIDE 19 mmol/L (22-30); CHLORIDE 107 mmol/L (98-107); CREATINE KINASE 35 U/L (30-135); GLUCOSE 140 mg/dL (75-110); POTASSIUM 3.3 mmol/L (3.6-5.0); TOTAL PROTEIN 5.9 g/dL (6.3-8.2)
[2020-07-22 21:50] LABS: CREATINE KINASE MB 0.87 ng/mL (<4.55)
[2020-07-22 21:52] LABS: TROPONIN I < 0.012 ng/mL
[2020-07-22] MEDS ORDERED: SUCRALFATE 1 GM TABLET PO ONE (23:09)
[2020-07-22] MEDS ORDERED: POTASSIUM CHLORIDE 10 MEQ TABLET.ER PO ONE (23:09)
[2020-07-22] MEDS ORDERED: ONDANSETRON 4 MG TAB.RAPDIS PO ONE (23:09)
--- NOTE | 2020-07-22 23:15 | ER Document Report ---
ED General - General Chief Complaint: Chest Pain Stated Complaint: CHEST PAIN AND ABDOMINAL Time Seen by Provider: 07/22/20 21:55 Primary Care Provider: FADI ESCOBAR PA-C [Primary Care Provider] - Follow up as needed TRAVEL OUTSIDE OF THE [place] IN LAST 30 DAYS: No - HPI Notes: Patient is a 60-year-old female presents emergency department for evaluation of epigastric and left upper quadrant/left lower chest pain. It started last several days. She states it is present after eating or drinking. It seems to last a few hours and resolves. Nothing seems to make it better. She has had some nausea but no emesis. No fevers or chills. Normal bowel movements, no melena, hematochezia. She denies any diarrhea. She has had no cough or shortness of breath. She describes the pain as sharp and stabbing, it does not radiate. She is currently pain-free, at her worst it was a 3 out of 5. - Related Data Allergies/Adverse Reactions: No Known Drug Allergies Allergy (Severe, Verified 03/06/17 10:27) Home Medications: List reviewed with patient at bedside Past Medical History - General Information source: Patient - Social History Smoking Status: Current Every Day Smoker - Never smoked Chew tobacco use (# tins/day): No Frequency of alcohol use: None Drug Abuse: None Family History: CAD, Malignancy. denies: CVA - Past Medical History Cardiac Medical History: Reports: Hx Coronary Artery Disease, Hx Hypercholesterolemia Pulmonary Medical History: Reports: Hx COPD Denies: Hx Asthma, Hx Bronchitis, Hx Pneumonia Neurological Medical History: Reports: Hx Seizures - With alcohol withdrawal Endocrine Medical History: Denies: Hx Diabetes Mellitus Type 1, Hx Diabetes Mellitus Type 2, Hx Hyperthyroidism, Hx Hypothyroidism GI Medical History: Reports: Hx Gastroesophageal Reflux Disease. Denies: Hx Cirrhosis, Hx Hepatitis Musculoskeletal Medical History: Reports Hx Arthritis - Chronic neck and back pain, Denies Hx Gout Skin Medical History: Denies Hx Eczema, Denies Hx Psoriasis Psychiatric Medical History: Reports: Hx Anxiety, Hx Bipolar Disorder, Hx Depression Infectious Medical History: Denies: Hx Hepatitis Past Surgical History: Reports: Hx Orthopedic Surgery - discectomy 1998, Hx Tubal Ligation. Denies: Hx Hysterectomy - Immunizations Hx Diphtheria, Pertussis, Tetanus Vaccination: Yes Review of Systems - Review of Systems Constitutional: No symptoms reported EENT: No symptoms reported Cardiovascular: No symptoms reported Respiratory: No symptoms reported Gastrointestinal: See HPI Genitourinary: No symptoms reported Musculoskeletal: No symptoms reported Skin: No symptoms reported Neurological/Psychological: No symptoms reported Physical Exam - Vital signs Vitals: Temp 97.7 F 07/22/20 20:33 - Notes Notes: Vital signs reviewed, please refer to chart. Head is normocephalic, atraumatic. Pupils equal round, reactive to light. Neck is supple without meningismus. Heart is regular rate and rhythm. Lungs are clear to auscultation bilaterally. Chest wall excursion is equal bilaterally, no abnormality to chest wall inspection, no chest wall tenderness. Abdomen is soft, mildly tender in the epigastric without rebound or guarding, normoactive bowel sounds throughout. Extremities without cyanosis, clubbing. Posterior calves are nontender. Peripheral pulses are equal. Skin is warm and dry. Patient is awake, alert, neurological exam is nonfocal. Course - Re-evaluation Re-evalutation: 07/22/20 23:14 Patient presents emergency department for evaluation. Laboratory investigations were as ordered through triage. Laboratory investigations revealed a very mild hypokalemia, potassium was placed. Symptomatically the patient was treated. Despite the location of her pain in her chest, I do strongly suspect a GI etiology for this patient's pain. It is affected by the ingestion of food. She is already on omeprazole. I will go ahead and add some temporary sucralfate. Otherwise she is not showing any signs of bleeding. Her abdominal exam is nonsurgical. I will send her home with a short-term sucralfate and Zofran prescription. She is to follow-up closely with primary care, return to the emergency department for worsening or new concerning symptoms of any sort. 07/23/20 00:20 X-ray remainder of labs unremarkable. - Vital Signs Vital signs: Temp Pulse Resp BP Pulse Ox 97.7 F 20 105/64 95 07/22/20 20:33 07/22/20 22:01 07/22/20 22:01 07/22/20 22:01 - Laboratory Results Result Diagrams: 07/22/20 20:36 12 20:36 Laboratory Results Interpreted: 07/22/20 12 20:36 20:36 Hgb 11.9 L Hct 35.4 L RDW 16.5 H Sodium 135.6 L Potassium 3.3 L Carbon Dioxide 19 L Glucose 140 H Total Protein 5.9 L Albumin 3.4 L Critical Laboratory Results Reviewed: No Critical Results - Radiology Results Radiology Results Interpreted: 07/23/20 00:18 Chest X-Ray 07/22/20 23:15 IMPRESSION: 1. No acute pulmonary findings. Critical Radiology Results Reviewed: No Critical Results - EKG Interpretation by Me Additional EKG results interpreted by me: 07/22/20 23:16 Sinus bradycardia with a rate of 54 bpm. Left axis deviation. First-degree AV block. Nonspecific ST changes, but no acute ST elevation concerning for ischemia. With the exception of rate, no significant change compared to prior study earlier this year. Discharge - Discharge Clinical Impression: Hypokalemia, Epigastric pain Condition: Stable Disposition: HOME, SELF-CARE Instructions: Abdominal Pain ([facility]), Hypokalemia ([facility]) Additional Instructions: Take medication as prescribed. Stick to a bland and nongreasy diet, see if this affects your symptoms. Follow-up with primary care next week. Return to the emergency department if you develop worsening or new concerning symptoms any sort. Referrals: FADI ESCOBAR PA-C [Primary Care Provider] - Follow up as needed
--- NOTE | 2020-07-23 00:13 | RADIOLOGY REPORT (SQ) ---
EXAM DESCRIPTION: Site: CHEST SINGLE VIEW RP: XR CHEST 1 VIEW CLINICAL HISTORY: 60 years Female; chest pain; COMPARISON: 02/07/2020 FINDINGS: Lungs: Lungs are clear, with no focal infiltrate, pneumothorax, or pleural effusion. Mediastinum: Mediastinum is within normal limits for this positioning. Bones: Bony structures are unremarkable. IMPRESSION: 1. No acute pulmonary findings.
[2020-07-23 01:13] VITALS: BP 137/89
--- NOTE | 2020-07-24 13:23 | EKG REPORT ---
SEVERITY:- ABNORMAL ECG - SINUS RHYTHM LEFT ANTERIOR FASCICULAR BLOCK CONSIDER RIGHT VENTRICULAR HYPERTROPHY NONSPECIFIC T ABNORMALITIES, LATERAL LEADS : Confirmed by: Elsa Cruz 24-Jul-2020 13:23:04
== END 2020-07-23 01:14 | disposition home or self-care (01) ==
LOC: ER 20:32
DX: E87.6 Hypokalemia (principal); R10.13 Epigastric pain; R10.12 Left upper quadrant pain; R07.9 Chest pain, unspecified; R11.0 Nausea; F17.200 Nicotine dependence, unspecified, uncomplicated; I25.10 Atherosclerotic heart disease of native coronary artery without angina pectoris; J44.9 Chronic obstructive pulmonary disease, unspecified
CPT/HCPCS: 93005; 99285; 36415; 82553; 82550; 83690; 85025; 80053; 84484; 71045; 93010; A9270 ×3; S0119

== ENCOUNTER → 2020-07-28 | Outpatient (CLI) | payer MEDICAID, MEDICARE ==
--- NOTE | 2020-07-28 12:30 | WOMENS IMAGING REPORT ---
EXAM DESCRIPTION: 3D SCREENING MAMMO BILAT IMAGES COMPLETED DATE/TIME: 07/28/2020 11:27 am REASON FOR STUDY: Z12.31 ENCOUNTER FOR SCREENING MAMMOGRAM FOR MALIGNANT NEOPLASM OF BREAST Z12.31 ENCNTR SCREEN MAMMOGRAM FOR MALIGNANT NEOPLASM OF TRUNG COMPARISON: Priors dating back to 2012 EXAM PARAMETERS: Views: Standard craniocaudal and mediolateral oblique views of each breast recorded using digital acquisition and breast tomosynthesis. Read with the assistance of CAD. .[facility] [employer] Pharmacist Assistant Version 9.2 LIMITATIONS: None. FINDINGS: No suspicious masses, suspicious calcifications or architectural distortion. No areas of c oncern. IMPRESSION: NEGATIVE MAMMOGRAM. BIRADS 1. BREAST DENSITY: b. There are scattered areas of fibroglandular density. BIRAD: ASSESSMENT: 1 NEGATIVE RECOMMENDATION: ROUTINE SCREENING COMMENT: The patient has been notified of the results by letter per MQSA requirements. Additional no tification policies are in place for contacting patient with suspicious or incomplete findings. Quality ID #[id number]: The [employer] recommends an annual screening mammogram for women aged 40 years or over. This facility utilizes a reminder system to ensure that all patients receive reminder letters, and/or direct phone calls for appointments. This includes reminders for routine scr eening mammograms, diagnostic mammograms, or other Breast Imaging Interventions when appropriate. Th is patient will be placed in the appropriate reminder system. TECHNICAL DOCUMENTATION: FINDING NUMBER: (1) ASSESSMENT: (1) JOB ID: [id number] 2010 [employer]- All Rights Reserved Reading location - IP/workstation name: [email or web address]
== END ==
LOC: WI 11:00
PROVIDERS: ATTEND Physician Assistant
DX: Z12.31 Encounter for screening mammogram for malignant neoplasm of breast (principal)
CPT/HCPCS: 77063; 77067